=== PATIENT | male | born 1945 ===

== ENCOUNTER 2018-03-02 13:13 | Inpatient (IN) ==
[2018-03-02] MEDS ORDERED: fentaNYL Citrate Inj 250 MCG/5 ML Ampul ONE (17:19)
[2018-03-02] MEDS ORDERED: Gelatin 12 MM/7 MM Topical Foam I-ARTERIAL ONE (18:00)
[2018-03-02] MEDS ORDERED: ceFAZolin 1 GM Premix Inj 1 GM/50 ML FROZ.PIGGY IV.SIG ONE (18:38)
--- NOTE | 2018-03-02 18:49 | P.RAD ---
Post Procedure Progress Note - Pre Procedure Diagnosis (1) Lower GI bleed - Post Procedure Diagnosis (1) Lower GI bleed - Procedure Information Procedure Date: 03/02/18 Supervising Radiologist: Eladio Banks MD Estimated blood loss (mL): 3 Anesthesia: Local, Conscious Sedation - Plan of Activity Patient to Unit: PACU Patient Condition: Fair Additional Comments: Mesenteric angio completed. Subselective injections of the Celiac, SMA and MAGGIE. Celiac and MAGGIE are unremarkable. SMA demonstrated an abnormal vessel that appeared to be in the terminal ilium. Possible small AVM. Very small feeding vessel was embolized with Gelfoam and a 1mm coil. Cecum was evaluated in multiple projections. No active bleeding seen, No remaining AVM seen in this area. Full dictated report to follow See PACS Report for procedural detail/treatment.
[2018-03-02] MEDS ORDERED: Bisacodyl 10 MG Supp RECTAL PRN (19:36)
[2018-03-02] MEDS ORDERED: Magnesium Sulfate Inj 4 GM in Sodium Chlor 0.9% Inj 92 ML IV.SIG PRN (19:39)
[2018-03-02] MEDS ORDERED: Potassium Phosphate Inj 30 MMOL in Sodium Chlor 0.9% Inj 250 ML IV.SIG PRN (19:39)
[2018-03-02] MEDS ORDERED: Magnesium Sulfate Inj 2 GM in Sodium Chlor 0.9% Inj 96 ML IV.SIG PRN (19:39)
[2018-03-02] MEDS ORDERED: Potassium Chloride 25 MEQ Effervescent Tablet PO PRN (19:39)
[2018-03-02] MEDS ORDERED: Potassium Chlor 40 mEq Premix 40 MEQ/100 ML PIGGYBACK IV.SIG PRN ×2 (19:39)
[2018-03-02] MEDS ORDERED: Potassium Phosphate 500 MG Soluble Tablet PO PRN ×2 (19:39)
[2018-03-02] MEDS ORDERED: Dextrose 50% in Water 50 ML Vial IV.PUSH PRN (19:39)
[2018-03-02] MEDS ORDERED: Potassium Chlor 20 mEq Premix 20 MEQ/100 ML PIGGYBACK IV.SIG PRN ×2 (19:39)
[2018-03-02] MEDS ORDERED: Sodium Phosphate Inj 30 MMOL in Sodium Chlor 0.9% Inj 250 ML IV.SIG PRN (19:39)
[2018-03-02] MEDS ORDERED: Magnesium Oxide 400 MG Tablet PO PRN (19:39)
--- NOTE | 2018-03-02 19:40 | P.HPCC ---
History of Present Illness Service: Critical care medicine Primary Care Physician: UNKNOWN Chief Complaint: GI bleed History of Present Illness: This is a 72-year-old male. Admission 03/02/2018 past medical includes diabetes mellitus, hypertension, obstructive sleep apnea, hypothyroidism and pulmonary fibrosis. Pertinent history, GI bleed. Patient a colonoscopy 02/22 which revealed internal hemorrhoids and distal AVM that was cauterized. Patient had recurrent rectal bleeding in a colonoscopy 03/01 revealed acute clot. Patient was epi and clipped. Hemoglobin this a.m. at 03/02 L was 11.1. Patient was transferred to [facility] for embolization by interventional radiology. In IR, patient had patent celiac and MAGGIE. SMA revealed possible bleed at the terminal ileum. Gelfoam and 1 mm close provided. Hemoglobin is currently 8.4 patient is hemodynamically stable. Inpatient Certification: I certify that the inpatient services were ordered in accordance with Medicare regulations governing the order. This includes certification that hospital inpatient services are reasonable and necessary and in the case of services not specified as inpatient-only under 42 CFR 419.22(n), that they are appropriately provided as inpatient services in accordance to with the 2-midnight benchmark under 43 CFR 412.3(e) Estimated Total Length of Stay (Days): 5 Plans for Post Hospital Care: Other Review of Systems Constitutional: Denies anorexia, Denies body ache(s) Eyes: Denies blind spots, Denies blurry vision Ears, Nose, Mouth, and Throat: Reports abnormal hearing, Denies bleeding gums Cardiovascular: Denies chest pain, Denies shortness of breath with activity Respiratory: Reports shortness of breath with activity, Denies change in phlegm color, Denies cough, Denies shortness of breath, Denies wheezing Gastrointestinal: Reports bloating, Reports bright, red blood in stools, Denies abdominal pain, Denies vomiting blood Genitourinary: Denies scrotal swelling Musculoskeletal: Denies abnormal walking Skin/Breast: Denies acne, Denies bleeding lesions Neurologic: Reports abnormal hearing, Denies abnormal movements Psychiatric: Reports abnormal sleep pattern, Denies anxiety Endocrine: Denies cold intolerance Hematologic/Lymphatic: Denies easy bleeding Allergic/Immunologic: Denies GI upset with certain foods PMFSH - History History Provided By: Patient, Family Member - Medical History Medical History: Medical History (Last Updated 03/03/18 @ 00:45 by Vince Cardozo MD) Diabetes mellitus Essential hypertension Hypothyroidism Obstructive sleep apnea Pulmonary fibrosis - Surgical History Surgical History: Surgical History (Last Updated 03/03/18 @ 00:36 by Vince Cardozo MD) Status post colonoscopy - Family History Family History: Family History (Last Updated 03/03/18 @ 00:36 by Vince Cardozo MD) Other Family history unremarkable - Tobacco History Second Hand Smoke Exposure: Yes Tobacco Use In Past 30 Days: Yes Smoking Status: Current every day smoker Tobacco Type: Cigarettes - Alcohol History How Often Do You Have a Drink Containing Alcohol: Monthly or less - Substance Use History Substance History: No History of Abuse Medications and Allergies Active Medications: Active Medications Acetaminophen (Tylenol) 650 mg PO Q6H PRN PRN Reason: PAIN 1-10 AND/OR FEVER >101F Al Hydroxide/Mg Hydroxide (Milk Of Magnorion Liq) 30 ml PO Q12H PRN PRN Reason: Mild Constipation Albuterol (Albuterol Neb (Valeria)) 2.5 mg NEB Q2HR NEB PRN PRN Reason: SHORTNESS OF BREATH/WHEEZING Albuterol (Duoneb Neb (Prn)) 1 ampul NEB Q4HR NEB VALERIA Bisacodyl (Dulcolax Supp) 10 mg RECTAL DAILY PRN PRN Reason: SEVERE CONSITIPATION Chlorhexidine Gluconate (Chlorhexidine 2% Cloth) 3 pack TOPICAL DAILY@0400 VALERIA Stop: 03/08/18 03:59 Chlorhexidine Gluconate (Chlorhexidine 2% Cloth) 3 pack TOPICAL DAILY@0400 PRN PRN Reason: Extra cloth needed Stop: 03/08/18 03:59 Sodium Chloride (Ns Inj) 1,000 mls @ 84 mls/hr IV.CONT .[id number] VALERIA Magnesium Sulfate 4 gm/ Sodium (Chloride) 100 mls @ 50 mls/hr IV.SIG UNSCH PRN PRN Reason: For Magnesium 0.9 - 1.1 mg/dL Magnesium Sulfate 2 gm/ Sodium (Chloride) 100 mls @ 50 mls/hr IV.SIG UNSCH PRN PRN Reason: For Magnesium 1.2 - 1.6 mg/dL Potassium Chloride (Kcl 40 Meq Premix Inj) 40 meq in 100 mls @ 25 mls/hr IV.SIG Q2H PRN PRN Reason: For Potassium 2.8 - 3.2 mEq/L Potassium Chloride (Kcl 20 Meq Premix Inj) 20 meq in 100 mls @ 50 mls/hr IV.SIG Q2H PRN PRN Reason: For Potassium 3.3 - 3.5 mEq/L Potassium Chloride (Kcl 40 Meq Premix Inj) 40 meq in 100 mls @ 25 mls/hr IV.SIG UNSCH PRN PRN Reason: For Potassium 3.3 - 3.5 mEq/L Potassium Chloride (Kcl 20 Meq Premix Inj) 20 meq in 100 mls @ 50 mls/hr IV.SIG Q2H PRN PRN Reason: For Potassium 2.8 - 3.2 mEq/L Lactulose (Lactulose Liq) 30 ml PO DAILY PRN PRN Reason: SEVERE CONSITIPATION Pantoprazole Sodium (Protonix Inj) 40 mg IV.PUSH DAILY VALERIA Potassium Bicarb/Potassium Chloride (K-Lyte Cl Eff) 50 meq PO UNSCH PRN PRN Reason: For Potassium 3.3 - 3.5 mEq/L Potassium Phosphate (K-Phos Original) 2,000 mg PO Q4H PRN PRN Reason: Phosphorus Less Than 2.5 mg/dL Potassium Phosphate (K-Phos Original) 2,000 mg PO UNSCH PRN PRN Reason: SEE LABEL COMMENTS Senna/Docusate Sodium (Natasha-Colace) 1 tab PO BID VALERIA Sennosides (Senokot) 17.2 mg PO Q12H PRN PRN Reason: Moderate Constipation Sodium Chloride (Ns Flush) 2 ml IV.FLUSH BID VALERIA Sodium Chloride (Ns Flush) 2 ml IV.FLUSH PRN PRN PRN Reason: FLUSH AFTER USING IV ACCESS Allergies Allergy/AdvReac Type Severity Reaction Status Date / Time No Known Allergies Allergy Verified 03/02/18 17:21 Results - Labs CBC & Chem 7: 03/02/18 20:16 Exam Vital signs: Intake & Output 03/02/18 03/02/18 03/03/18 06:59 18:59 06:59 Intake Total 0 / 0 50 / 50 Balance 0 / 0 50 / 50 Weight 110.223 kg Intake: IV 50 / 50 Ancef 1 GM Premix Inj 1 gm In 50 / 50 50 ml @ 0 mls/hr IV.SIG .STK- MED ONE Rx#:[id number] Oral 0 / 0 Other: Weight On Admission 110 kg - Constitutional no acute distress - Routine HEENT Exam Head: Present: normocephalic, atraumatic Eye: Present: EOMI, PERRL, normal accommodation ENT: Present: mucous membranes moist - Routine Neck Exam Present: supple, full ROM. Absent: JVD - Routine Chest/Breast/Axilla Exam Chest wall: Absent: tenderness Breast: Absent: tenderness Axillae: Absent: lymphadenopathy - Routine Respiratory Exam Present: CTA bilaterally. Absent: accessory muscle use, rhonchi - Routine Cardiovascular Exam Present: RRR, S1, S2. Absent: murmur - Routine Abdominal Exam Present: soft, normoactive bowel sounds - Routine Extremities Exam Absent: cyanosis, clubbing, edema - Routine Skin Exam Present: intact - Routine Neurological Exam Present: alert, oriented X3 Septic Shock Reassessment Septic shock perfusion: reassessment completed Caprini VTE Risk Assessment Caprini VTE Risk Assessment: Moderate/High Risk (score >= 2) VTE Pharmacological Exception Reason: Hemorrhage Caprini Risk Assessment Model: Point Value = 1 Point Value = 2 Point Value = 3 Point Value = 5 Age 41-60 Minor surgery BMI > 25 kg/m2 Swollen legs Varicose veins or History of unexplained or recurrent spontaneous Oral contraceptives or hormone replacement Sepsis (< 1 month) Serious lung disease, including pneumonia (< 1 month) Abnormal pulmonary function Acute myocardial infarction Congestive heart failure (< 1 month) History of inflammatory bowel disease Medical patient at bed rest Age 61-74 Arthroscopic surgery Major open surgery (> 45 min) Laparoscopic surgery (> 45 min) Malignancy Confined to bed (> 72 hours) Immobilizing plaster cast Central venous access Age >= 75 History of VTE Family history of VTE Factor V Leiden Prothrombin [id number] Lupus anticoagulant Anticardiolipin antibodies Elevated serum homocysteine Heparin-induced thrombocytopenia Other congenital or acquired thrombophilia Stroke (< 1 month) Elective arthroplasty Hip, pelvis, or leg fracture Acute spinal cord injury (< 1 month) Prophylaxis Regimen: Total Risk Factor Score Risk Level Prophylaxis Regimen 0-1 Low Early ambulation 2 Moderate Order ONE of the following: *Sequential Compression Device (SCD) *Heparin 5000 units SQ BID 3-4 Higher Order ONE of the following medications: *Heparin 5000 units SQ TID *Enoxaparin/Lovenox 40 mg SQ daily (WT < 150 kg, CrCl > 30 mL/min) *Enoxaparin/Lovenox 30 mg SQ daily (WT < 150 kg, CrCl > 10-29 mL/min) *Enoxaparin/Lovenox 30 mg SQ BID (WT < 150 kg, CrCl > 30 mL/min) AND/OR *Sequential Compression Device (SCD) 5 or more Highest Order ONE of the following medications: *Heparin 5000 units SQ TID (Preferred with Epidurals) *Enoxaparin/Lovenox 40 mg SQ daily (WT < 150 kg, CrCl > 30 mL/min) *Enoxaparin/Lovenox 30 mg SQ daily (WT < 150 kg, CrCl > 10-29 mL/min) *Enoxaparin/Lovenox 30 mg SQ BID (WT < 150 kg, CrCl > 30 mL/min) AND *Sequential Compression Device (SCD) Assessment and Plan - Assessment and Plan Plan: Neuro/Psych: Acetaminophen 650 mg p.o. every 6 hours as needed fever past pain 1 through 10 CV: Essential hypertension Holding enalapril 20 mg twice daily and amlodipine 5 mg daily in light of hypotension. Holding triamterene/hydrochlorothiazide 75/51 tablet daily in light of hypotension. Currently on normal saline 84 cc an hour. Not requiring vasopressors Resp: Obstructive sleep apnea History of pulmonary fibrosis Nasal cannula to maintain saturations greater than equal to 90% Incentive spirometry while awake Albuterol/ipratropium aerosols every 4 hours with albuterol aerosols every 2 hours as needed dyspnea Follow-up on chest x-ray GI: Lower GI bleed -status post embolization/Gelfoam with 1 mm gelfoam to SMA terminal ileum Internal hemorrhoid IR findings as above. n.p.o. status. Dr. Vega is following Pantoprazole for GI prophylaxis Docusate serum/senna 1 tablet twice daily for bowel regimen. : Straight catheterization as needed Endo: Diabetes mellitus Hypothyroidism Sliding scale insulin with Accu-Cheks to maintain euglycemia. Holding Januvia 100 mg daily while n.p.o. Check TSH Continue levothyroxine 75 mcg daily Renal: Follow BMP Monitor urine output accurate I's and O's Heme: Acute blood loss anemia Hemoglobin currently 8.4. Downward trend noted hemoglobin was 11.1 on 03/02 at 800 hours Hemoglobins every 6 hours. Type and screen ID: Monitor for signs and symptomatology infection MSK: Elevated BMI Physical therapy evaluate and treat FEN: Access -Utilize peripheral IV. Central line if indicated Prophylaxis - -GI pantoprazole = = DVT SCD/pharmacological prophylaxis contraindicated with hemorrhage Level 3 admission Code Status: Full code Discussed Condition With: Patient. . Care plan discussed and all questions answered. H&P: Quality - VTE Deep Vein Thrombosis/Pulmonary Embolism Present on Admission: No
[2018-03-02 21:11] LABS: Hematocrit 24.5 % (39.0-51.0); Hemoglobin 8.4 gm/dL (13.0-17.0); Mean Corpuscular HGB Conc 34.3 % (32.0-36.0); Mean Corpuscular Hemoglobin 31.1 pg (27.0-34.0); Mean Corpuscular Volume 90.8 fL (80.0-100.0); Mean Platelet Volume 9.5 fL (7.0-11.0); Platelet Count 191 th/mm3 (150-450); Red Cell Distribution Width 13.4 % (11.6-17.2); White Blood Count 9.2 th/mm3 (4.0-11.0)
[2018-03-02] MEDS: Sod Chloride 0.9% Inj 1,000 ML IV.CONT SCH (21:13)
[2018-03-03] MEDS: Senna/Docusate Sodium 8.6/50 MG Tablet PO SCH ×3 (00:50→21:48)
[2018-03-03] MEDS: Insulin NovoLOG Aspart Correctional Sugar Inj SQ SCH ×4 (01:00→18:29)
[2018-03-03] MEDS ORDERED: Chlorhexidine Gluconate 2% 1 Pack (2 Cloths) TOPICAL PRN (04:00)
[2018-03-03 04:01] LABS: Baso % (Auto) 0.4 % (0.0-2.0); Eos % (Auto) 0.4 % (0.0-4.0); Hemoglobin 7.9 gm/dL (13.0-17.0); Lymph # (Auto) 1.3 th/mm3 (1.0-4.8); Lymph % (Auto) 11.7 % (9.0-44.0); Mean Corpuscular HGB Conc 34.2 % (32.0-36.0); Mean Corpuscular Hemoglobin 31.1 pg (27.0-34.0); Mean Platelet Volume 8.4 fL (7.0-11.0); Mono # (Auto) 0.8 th/mm3 (0.0-0.9); Mono % (Auto) 7.1 % (0.0-8.0); Neut # (Auto) 8.7 th/mm3 (1.8-7.7); Neut % (Auto) 80.4 % (16.0-70.0); Platelet Count 205 th/mm3 (150-450); Red Blood Count 2.53 mil/mm3 (4.50-5.90); Red Cell Distribution Width 13.7 % (11.6-17.2); White Blood Count 10.8 th/mm3 (4.0-11.0)
[2018-03-03 04:13] LABS: Activated Partial Thrombo Time 26.3 sec (23.4-31.7); Prothrombin Time 10.4 sec (9.8-11.6)
[2018-03-03 04:37] LABS: Albumin 2.7 g/dL (3.4-5.0); Anion Gap 7 meq/L (5-15); Aspartate Aminotransferase 22 U/L (15-37); Blood Urea Nitrogen 7 mg/dL (7-18); Calcium 7.7 mg/dL (8.5-10.1); Carbon Dioxide 28.5 meq/L (21.0-32.0); Chloride 106 meq/L (98-107); Glomerular Filtration Rate 78 mL/min (>89); Glucose,Random 147 mg/dL (74-106); Potassium 3.8 meq/L (3.5-5.1); Sodium 141 meq/L (136-145)
[2018-03-03 04:41] LABS: Alanine Aminotransferase 37 U/L (12-78); Alkaline Phosphatase 68 U/L (45-117); Phosphorus 2.8 mg/dL (2.5-4.9); Total Protein 6.3 g/dL (6.4-8.2)
[2018-03-03] MEDS: Chlorhexidine Gluconate 2% 1 Pack (2 Cloths) TOPICAL SCH (07:55)
--- NOTE | 2018-03-03 08:12 | P.PNCC ---
Subjective Subjective Remarks/Hospital Course: This is a 72-year-old male. Admission 03/02/2018 past medical includes diabetes mellitus, hypertension, obstructive sleep apnea, hypothyroidism and pulmonary fibrosis. Pertinent history, GI bleed. Patient a colonoscopy 02/22 which revealed internal hemorrhoids and distal AVM that was cauterized. Patient had recurrent rectal bleeding in a colonoscopy 03/01 revealed acute clot. Patient was epi and clipped. Hemoglobin this a.m. at 11 L was 11.1. Patient was transferred to [facility] for embolization by interventional radiology. In IR, patient had patent celiac and MAGGIE. SMA revealed possible bleed at the terminal ileum. Gelfoam and 1 mm close provided. Hemoglobin is currently 8.4 patient is hemodynamically stable. 03/03 Patient is awake and alert, s/p mesenteric angiogram with embolization SMA. Hgb 7.9 from 8.4. Objective Vital Signs / I&O: Vital Signs 03/02/18 18:59 03/02/18 19:14 03/02/18 19:29 Temperature 97.9 F 97.9 F 97.9 F Pulse Rate 88 88 89 Respiratory Rate 18 18 18 Blood Pressure 160/72 H 145/63 H 152/70 H Pulse Oximetry 94 L 95 100 03/02/18 19:59 03/02/18 20:00 03/02/18 20:29 Temperature 97.9 F 97.9 F 97.0 F L Pulse Rate 92 H 92 H 96 H Respiratory Rate 18 20 20 Blood Pressure 165/73 H 165/73 H 139/63 Pulse Oximetry 95 95 96 03/02/18 20:59 03/02/18 21:02 03/02/18 21:29 Temperature 97.9 F 97.0 F L Pulse Rate 96 H 93 H 98 H Respiratory Rate 20 16 21 Blood Pressure 161/70 H 134/63 Pulse Oximetry 100 99 98 03/02/18 22:00 03/02/18 22:29 03/02/18 23:00 Temperature 97.0 F L 97 F L 97.0 F L Pulse Rate 97 H 98 H 98 H Respiratory Rate 19 20 21 Blood Pressure 153/70 H 156/66 H 163/73 H Pulse Oximetry 100 98 97 03/02/18 23:29 03/03/18 00:00 03/03/18 00:29 Temperature 97.9 F 97.9 F Pulse Rate 99 H 100 H 104 H Respiratory Rate 18 20 25 H Blood Pressure 160/62 H 157/70 H 150/70 H Pulse Oximetry 97 99 100 03/03/18 01:00 03/03/18 01:29 03/03/18 02:00 Temperature 97.9 F 97.9 F 97.9 F Pulse Rate 100 H 97 H 98 H Respiratory Rate 21 16 11 L Blood Pressure 155/62 H 161/70 H 158/61 H Pulse Oximetry 99 99 99 03/03/18 03:00 03/03/18 04:00 03/03/18 05:00 Temperature 97.9 F 98.9 F 97.1 F L Pulse Rate 100 H 99 H 99 H Respiratory Rate 19 19 17 Blood Pressure 159/70 H 168/74 H 164/72 H Pulse Oximetry 100 100 100 03/03/18 06:00 03/03/18 07:59 Temperature 97 F L Pulse Rate 100 H 105 H Respiratory Rate 20 15 Blood Pressure 159/64 H Pulse Oximetry 100 94 L Intake & Output 03/02/18 03/03/18 03/03/18 18:59 06:59 18:59 Intake Total 0 / 0 50 / 50 Output Total 850 / 850 0 / 0 Balance 0 / 0 -800 / -800 0 / 0 Weight 110.223 kg 110 kg Intake: IV 50 / 50 Ancef 1 GM Premix Inj 1 gm In 50 / 50 50 ml @ 0 mls/hr IV.SIG .STK- MED ONE Rx#:[id number] Oral 0 / 0 0 / 0 Output: Urine 850 / 850 0 / 0 Stool 0 / 0 0 / 0 Urine/Stool Mix 0 / 0 0 / 0 Other: Date of Last Bowel Movement 03/02/18 # Bowel Movements 0 0 # Incontinent Bowel Movements 0 0 Weight On Admission 110 kg Result Diagrams: 03/03/18 12:04 03/03/18 03:32 Other Results: Laboratory Results - last 12 hr 03/02/18 03/02/18 03/03/18 16:10 20:16 00:54 WBC 9.2 RBC 2.70 L Hgb 8.4 L Hct 24.5 L MCV 90.8 MCH 31.1 MCHC 34.3 RDW 13.4 Plt Count 191 MPV 9.5 Neut % (Auto) Lymph % (Auto) [place] % (Auto) Eos % (Auto) Baso % (Auto) Neut # (Auto) Lymph # (Auto) [place] # (Auto) Eos # (Auto) Baso # (Auto) WBC Differential Differential Comment PT INR APTT Sodium Potassium Chloride Carbon Dioxide Anion Gap BUN Creatinine Estimated GFR POC Glucose 198 H Random Glucose Lactic Acid Calcium Phosphorus Magnesium Total Bilirubin AST ALT Alkaline Phosphatase Total Protein Albumin Nasal Screen MRSA (PCR) Not detected Blood Type Blood Type Recheck Antibody Screen 03/03/18 03/03/18 03/03/18 03:22 03:30 03:32 WBC 10.8 RBC 2.53 L Hgb 7.9 L Hct 23.0 L MCV 91.0 MCH 31.1 MCHC 34.2 RDW 13.7 Plt Count 205 MPV 8.4 Neut % (Auto) 80.4 H Lymph % (Auto) 11.7 [place] % (Auto) 7.1 Eos % (Auto) 0.4 Baso % (Auto) 0.4 Neut # (Auto) 8.7 H Lymph # (Auto) 1.3 [place] # (Auto) 0.8 Eos # (Auto) 0.0 Baso # (Auto) 0.0 WBC Differential . Differential Comment Auto diff final PT 10.4 INR 1.0 APTT 26.3 Sodium Potassium Chloride Carbon Dioxide Anion Gap BUN Creatinine Estimated GFR POC Glucose Random Glucose Lactic Acid Calcium Phosphorus Magnesium Total Bilirubin AST ALT Alkaline Phosphatase Total Protein Albumin Nasal Screen MRSA (PCR) Blood Type A Positive Blood Type Recheck Required Antibody Screen Negative 03/03/18 03/03/18 03/03/18 03:32 03:32 06:08 WBC RBC Hgb Hct MCV MCH MCHC RDW Plt Count MPV Neut % (Auto) Lymph % (Auto) [place] % (Auto) Eos % (Auto) Baso % (Auto) Neut # (Auto) Lymph # (Auto) [place] # (Auto) Eos # (Auto) Baso # (Auto) WBC Differential Differential Comment PT INR APTT Sodium 141 Potassium 3.8 Chloride 106 Carbon Dioxide 28.5 Anion Gap 7 BUN 7 Creatinine 0.95 Estimated GFR 78 L POC Glucose 182 H Random Glucose 147 H Lactic Acid 0.8 Calcium 7.7 L Phosphorus 2.8 Magnesium 2.0 Total Bilirubin 0.2 AST 22 ALT 37 Alkaline Phosphatase 68 Total Protein 6.3 L Albumin 2.7 L Nasal Screen MRSA (PCR) Blood Type Blood Type Recheck Antibody Screen Objective Remarks: GENERAL: Patient is 72 yo lying in bed in NAD SKIN: Warm and dry. HEAD: Normocephalic. EYES: No scleral icterus. No injection or drainage. NECK: Supple, trachea midline. No JVD or lymphadenopathy. CARDIOVASCULAR: Regular rate and rhythm without murmurs, gallops, or rubs. RESPIRATORY: Breath sounds equal bilaterally. No accessory muscle use. GASTROINTESTINAL: Abdomen soft, non-tender, nondistended. MUSCULOSKELETAL: No cyanosis, or edema. Neuro: Awake and alert Assessment and Plan - Assessment and Plan Plan: Neuro/Psych: Awake and alert Acetaminophen 650 mg p.o. every 6 hours as needed fever past pain 1 through 10 CV: Essential hypertension Monitor HR and BP keep MAP>65mmHg. Holding BP meds Currently on normal saline 84 cc an hour. Resp: Obstructive sleep apnea History of pulmonary fibrosis Continue with oxygen keep sats >92% Incentive spirometry while awake Albuterol/ipratropium aerosols every 4 hours with albuterol aerosols every 2 hours as needed dyspnea Check CXR GI: Lower GI bleed -status post embolization/Gelfoam with 1 mm gelfoam to SMA terminal ileum Internal hemorrhoid IR findings as above. NPO Dr. Vega is following Pantoprazole for GI prophylaxis Docusate serum/senna 1 tablet twice daily for bowel regimen. : Straight catheterization as needed Endo: Diabetes mellitus Hypothyroidism Sliding scale insulin with Accu-Cheks to maintain euglycemia. Holding Januvia 100 mg daily while n.p.o. Check TSH Continue levothyroxine 75 mcg daily Renal: Monitor renal function, electrolytes replacement per protocol. Heme: Acute blood loss anemia Monitor CBC ID: Monitor for signs of infection(Fever, WBC) MSK: Elevated BMI Physical therapy evaluate and treat FEN: Access -Utilize peripheral IV. Prophylaxis - -GI pantoprazole = = DVT SCD/pharmacological prophylaxis contraindicated with hemorrhage/bleed Will sign off and transfer care to [facility] 2
--- NOTE | 2018-03-03 08:45 | XR ---
EXAM DATE: 03/03/2018 8:37 AM EDT AGE/SEX: 72 years / Male INDICATIONS: shortness of breath. CLINICAL DATA: This is the patient's initial encounter. Patient reports that signs and symptoms have been present for 1 day and indicates a pain score of 0/10. MEDICAL/SURGICAL HISTORY: Diabetes mellitus type II. Hypertension. Hypothyroidism. Pulmonary fibrosis. None. COMPARISON: No prior exams available for comparison. FINDINGS: Single AP view of the chest. Patchy opacity of the lung bases. Central pulmonary vasculature prominen ce. Cardiac silhouette mildly prominent. Small left pleural effusion. No evidence of pneumothorax. CONCLUSION: 1. Pulmonary vascular congestion. 2. Mildly prominent cardiac silhouette. 3. Small left pleural effusion. Electronically signed by: Adrian Gilliland MD 03/03/2018 8:43 AM EDT
[2018-03-03] MEDS: Pantoprazole Inj 40 MG Vial IV.PUSH SCH (08:55)
[2018-03-03] MEDS: Sod Chloride 0.9% Inj 1,000 ML IV.CONT SCH (09:47)
--- NOTE | 2018-03-03 10:26 | P.CONGI ---
History of Present Illness Consult date: 03/03/18 Chief complaint: GI Bleed History of Present Illness: This is a 72-year-old male hard of hearing with pmh of diabetes mellitus, hypertension, obstructive sleep apnea, hypothyroidism and pulmonary fibrosis who was transferred from [place] on 03/02 for GI bleed described as significant BRBPR. Patient a colonoscopy 02/22 at [facility] which revealed internal hemorrhoids and distal AVM that was cauterized. Patient started bleeding on , subsequently had another colonoscopy 03/01 revealed acute clot s/p epi and clipped, but pt cont. to bleed so he was transferred to [facility] for embolization by interventional radiology. On admission, Hemoglobin 8.4, today is 7.9. Patient is s/p IR intervention, patient had patent celiac and MAGGIE. SMA revealed possible bleed at the terminal ileum. Gelfoam and 1 mm close provided. Patient is hemodynamically stable. Patient hasn't had any more bleeding since yesterday. Inquiring about diet. <Radha Callaway - Last Filed: 03/03/18 10:10> Review of Systems All other systems reviewed negative except as stated in HPI <Radha Callaway - Last Filed: 03/03/18 10:10> PMFSH - History History Provided By: Patient, Family Member - Medical History Medical History: Medical History (Last Reviewed 03/03/18 @ 08:23 by Amando Escobar) Diabetes mellitus Essential hypertension Hypothyroidism Obstructive sleep apnea Pulmonary fibrosis - Surgical History Surgical History: Surgical History (Last Reviewed 03/03/18 @ 08:23 by Amando Escobar) Status post colonoscopy - Family History Family History: Family History (Last Updated 03/03/18 @ 00:36 by Vince Cardozo MD) Other Family history unremarkable - Tobacco History Second Hand Smoke Exposure: Yes Tobacco Use In Past 30 Days: Yes Smoking Status: Current every day smoker Tobacco Type: Cigarettes - Alcohol History How Often Do You Have a Drink Containing Alcohol: Monthly or less - Substance Use History Substance History: No History of Abuse <Radha Callaway - Last Filed: 03/03/18 10:10> - Medical History Medical History: Medical History (Last Reviewed 03/03/18 @ 08:23 by Amando Escobar) Diabetes mellitus Essential hypertension Hypothyroidism Obstructive sleep apnea Pulmonary fibrosis - Surgical History Surgical History: Surgical History (Last Reviewed 03/03/18 @ 08:23 by Amando Escobar) Status post colonoscopy - Family History Family History: Family History (Last Updated 03/03/18 @ 00:36 by Vince Cardozo MD) Other Family history unremarkable <Loulou Méndez - Last Filed: 03/03/18 12:40> Medications and Allergies Active Medications: Active Medications Acetaminophen (Tylenol) 650 mg PO Q6H PRN PRN Reason: PAIN 1-10 AND/OR FEVER >101F Al Hydroxide/Mg Hydroxide (Milk Of Magnorion Liq) 30 ml PO Q12H PRN PRN Reason: Mild Constipation Albuterol (Albuterol Neb (Prn)) 2.5 mg NEB Q2HR NEB PRN PRN Reason: SHORTNESS OF BREATH/WHEEZING Albuterol (Duoneb Neb (Valeria)) 1 ampul NEB Q4HR NEB [facility]ERIA Last Admin: 03/03/18 07:56 Dose: Not Given Bisacodyl (Dulcolax Supp) 10 mg RECTAL DAILY PRN PRN Reason: SEVERE CONSITIPATION Chlorhexidine Gluconate (Chlorhexidine 2% Cloth) 3 pack TOPICAL DAILY@0400 VALERIA Stop: 03/08/18 03:59 Last Admin: 03/03/18 07:55 Dose: 3 pack Chlorhexidine Gluconate (Chlorhexidine 2% Cloth) 3 pack TOPICAL DAILY@0400 PRN PRN Reason: Extra cloth needed Stop: 03/08/18 03:59 Dextrose (D50w Vial) 50 ml IV.PUSH UNSCH PRN PRN Reason: PER HYPOGLYCEMIA PROTOCOL Glucagon (Glucagon Inj) 1 mg OTHER PRN PRN PRN Reason: for Hypoglycemia Protocol Magnesium Sulfate 4 gm/ Sodium (Chloride) 100 mls @ 50 mls/hr IV.SIG UNSCH PRN PRN Reason: For Magnesium 0.9 - 1.1 mg/dL Magnesium Sulfate 2 gm/ Sodium (Chloride) 100 mls @ 50 mls/hr IV.SIG UNSCH PRN PRN Reason: For Magnesium 1.2 - 1.6 mg/dL Potassium Chloride (Kcl 40 Meq Premix Inj) 40 meq in 100 mls @ 25 mls/hr IV.SIG Q2H PRN PRN Reason: For Potassium 2.8 - 3.2 mEq/L Potassium Chloride (Kcl 20 Meq Premix Inj) 20 meq in 100 mls @ 50 mls/hr IV.SIG Q2H PRN PRN Reason: For Potassium 3.3 - 3.5 mEq/L Potassium Chloride (Kcl 40 Meq Premix Inj) 40 meq in 100 mls @ 25 mls/hr IV.SIG UNSCH PRN PRN Reason: For Potassium 3.3 - 3.5 mEq/L Potassium Chloride (Kcl 20 Meq Premix Inj) 20 meq in 100 mls @ 50 mls/hr IV.SIG Q2H PRN PRN Reason: For Potassium 2.8 - 3.2 mEq/L Potassium Phosphate 30 mmol/ (Sodium Chloride) 260 mls @ 42 mls/hr IV.SIG UNSCH PRN PRN Reason: SEE LABEL COMMENTS Sodium Phosphate 30 mmol/ (Sodium Chloride) 260 mls @ 42 mls/hr IV.SIG UNSCH PRN PRN Reason: For Phosphorus < 2.5 mg/dL Insulin Aspart (Novolog Insulin Correctional Sugar Inj) 0 unit SQ Q6HR [facility]; Protocol Last Admin: 03/03/18 07:55 Dose: Not Given Lactulose (Lactulose Liq) 30 ml PO DAILY PRN PRN Reason: SEVERE CONSITIPATION Magnesium Oxide (Mag-Ox) 800 mg PO UNSCH PRN PRN Reason: For Magnesium 1.2 - 1.6 mg/dL Pantoprazole Sodium (Protonix Inj) 40 mg IV.PUSH DAILY [facility] Last Admin: 03/03/18 08:55 Dose: 40 mg Potassium Bicarb/Potassium Chloride (K-Lyte Cl Eff) 50 meq PO UNSCH PRN PRN Reason: For Potassium 3.3 - 3.5 mEq/L Potassium Phosphate (K-Phos Original) 2,000 mg PO Q4H PRN PRN Reason: Phosphorus Less Than 2.5 mg/dL Potassium Phosphate (K-Phos Original) 2,000 mg PO UNSCH PRN PRN Reason: SEE LABEL COMMENTS Senna/Docusate Sodium (Natasha-Colace) 1 tab PO BID [facility] Last Admin: 03/03/18 08:55 Dose: 1 tab Sennosides (Senokot) 17.2 mg PO Q12H PRN PRN Reason: Moderate Constipation Sodium Chloride (Ns Flush) 2 ml IV.FLUSH BID [facility] Last Admin: 03/03/18 08:56 Dose: 2 ml Sodium Chloride (Ns Flush) 2 ml IV.FLUSH PRN PRN PRN Reason: FLUSH AFTER USING IV ACCESS <Radha Callaway - Last Filed: 03/03/18 10:10> Active Medications: Active Medications Acetaminophen (Tylenol) 650 mg PO Q6H PRN PRN Reason: PAIN 1-10 AND/OR FEVER >101F Al Hydroxide/Mg Hydroxide (Milk Of Magnorion Liq) 30 ml PO Q12H PRN PRN Reason: Mild Constipation Albuterol (Albuterol Neb (Prn)) 2.5 mg NEB Q2HR NEB PRN PRN Reason: SHORTNESS OF BREATH/WHEEZING Albuterol (Duoneb Neb (Valeria)) 1 ampul NEB Q4HR NEB VALERIA Last Admin: 03/03/18 10:39 Dose: 1 ampul Bisacodyl (Dulcolax Supp) 10 mg RECTAL DAILY PRN PRN Reason: SEVERE CONSITIPATION Chlorhexidine Gluconate (Chlorhexidine 2% Cloth) 3 pack TOPICAL DAILY@0400 VALERIA Stop: 03/08/18 03:59 Last Admin: 03/03/18 07:55 Dose: 3 pack Chlorhexidine Gluconate (Chlorhexidine 2% Cloth) 3 pack TOPICAL DAILY@0400 PRN PRN Reason: Extra cloth needed Stop: 03/08/18 03:59 Dextrose (D50w Vial) 50 ml IV.PUSH UNSCH PRN PRN Reason: PER HYPOGLYCEMIA PROTOCOL Glucagon (Glucagon Inj) 1 mg OTHER PRN PRN PRN Reason: for Hypoglycemia Protocol Magnesium Sulfate 4 gm/ Sodium (Chloride) 100 mls @ 50 mls/hr IV.SIG UNSCH PRN PRN Reason: For Magnesium 0.9 - 1.1 mg/dL Magnesium Sulfate 2 gm/ Sodium (Chloride) 100 mls @ 50 mls/hr IV.SIG UNSCH PRN PRN Reason: For Magnesium 1.2 - 1.6 mg/dL Potassium Chloride (Kcl 40 Meq Premix Inj) 40 meq in 100 mls @ 25 mls/hr IV.SIG Q2H PRN PRN Reason: For Potassium 2.8 - 3.2 mEq/L Potassium Chloride (Kcl 20 Meq Premix Inj) 20 meq in 100 mls @ 50 mls/hr IV.SIG Q2H PRN PRN Reason: For Potassium 3.3 - 3.5 mEq/L Potassium Chloride (Kcl 40 Meq Premix Inj) 40 meq in 100 mls @ 25 mls/hr IV.SIG UNSCH PRN PRN Reason: For Potassium 3.3 - 3.5 mEq/L Potassium Chloride (Kcl 20 Meq Premix Inj) 20 meq in 100 mls @ 50 mls/hr IV.SIG Q2H PRN PRN Reason: For Potassium 2.8 - 3.2 mEq/L Potassium Phosphate 30 mmol/ (Sodium Chloride) 260 mls @ 42 mls/hr IV.SIG UNSCH PRN PRN Reason: SEE LABEL COMMENTS Sodium Phosphate 30 mmol/ (Sodium Chloride) 260 mls @ 42 mls/hr IV.SIG UNSCH PRN PRN Reason: For Phosphorus < 2.5 mg/dL Insulin Aspart (Novolog Insulin Correctional Sugar Inj) 0 unit SQ Q6HR [facility]; Protocol Last Admin: 03/03/18 07:55 Dose: Not Given Lactulose (Lactulose Liq) 30 ml PO DAILY PRN PRN Reason: SEVERE CONSITIPATION Magnesium Oxide (Mag-Ox) 800 mg PO UNSCH PRN PRN Reason: For Magnesium 1.2 - 1.6 mg/dL Pantoprazole Sodium (Protonix Inj) 40 mg IV.PUSH DAILY [facility] Last Admin: 03/03/18 08:55 Dose: 40 mg Potassium Bicarb/Potassium Chloride (K-Lyte Cl Eff) 50 meq PO UNSCH PRN PRN Reason: For Potassium 3.3 - 3.5 mEq/L Potassium Phosphate (K-Phos Original) 2,000 mg PO Q4H PRN PRN Reason: Phosphorus Less Than 2.5 mg/dL Potassium Phosphate (K-Phos Original) 2,000 mg PO UNSCH PRN PRN Reason: SEE LABEL COMMENTS Senna/Docusate Sodium (Natasha-Colace) 1 tab PO BID [facility] Last Admin: 03/03/18 08:55 Dose: 1 tab Sennosides (Senokot) 17.2 mg PO Q12H PRN PRN Reason: Moderate Constipation Sodium Chloride (Ns Flush) 2 ml IV.FLUSH BID [facility] Last Admin: 03/03/18 08:56 Dose: 2 ml Sodium Chloride (Ns Flush) 2 ml IV.FLUSH PRN PRN PRN Reason: FLUSH AFTER USING IV ACCESS <Loulou Méndez - Last Filed: 03/03/18 12:40> Allergies Allergy/AdvReac Type Severity Reaction Status Date / Time No Known Allergies Allergy Verified 03/02/18 17:21 Exam Vital signs: Vital Signs 03/02/18 18:59 03/02/18 19:14 03/02/18 19:29 Temperature 97.9 F 97.9 F 97.9 F Pulse Rate 88 88 89 Respiratory Rate 18 18 18 Blood Pressure 160/72 H 145/63 H 152/70 H Pulse Oximetry 94 L 95 100 03/02/18 19:59 03/02/18 20:00 03/02/18 20:29 Temperature 97.9 F 97.9 F 97.0 F L Pulse Rate 92 H 92 H 96 H Respiratory Rate 18 20 20 Blood Pressure 165/73 H 165/73 H 139/63 Pulse Oximetry 95 95 96 03/02/18 20:59 03/02/18 21:02 03/02/18 21:29 Temperature 97.9 F 97.0 F L Pulse Rate 96 H 93 H 98 H Respiratory Rate 20 16 21 Blood Pressure 161/70 H 134/63 Pulse Oximetry 100 99 98 03/02/18 22:00 03/02/18 22:29 03/02/18 23:00 Temperature 97.0 F L 97 F L 97.0 F L Pulse Rate 97 H 98 H 98 H Respiratory Rate 19 20 21 Blood Pressure 153/70 H 156/66 H 163/73 H Pulse Oximetry 100 98 97 03/02/18 23:29 18 00:00 03/03/18 00:29 Temperature 97.9 F 97.9 F Pulse Rate 99 H 100 H 104 H Respiratory Rate 18 20 25 H Blood Pressure 160/62 H 157/70 H 150/70 H Pulse Oximetry 97 99 100 03/03/18 01:00 03/03/18 01:29 03/03/18 02:00 Temperature 97.9 F 97.9 F 97.9 F Pulse Rate 100 H 97 H 98 H Respiratory Rate 21 16 11 L Blood Pressure 155/62 H 161/70 H 158/61 H Pulse Oximetry 99 99 99 03/03/18 03:00 03/03/18 04:00 03/03/18 05:00 Temperature 97.9 F 98.9 F 97.1 F L Pulse Rate 100 H 99 H 99 H Respiratory Rate 19 19 17 Blood Pressure 159/70 H 168/74 H 164/72 H Pulse Oximetry 100 100 100 03/03/18 06:00 03/03/18 07:00 03/03/18 07:59 Temperature 97 F L 97.1 F L Pulse Rate 100 H 100 H 105 H Respiratory Rate 20 24 15 Blood Pressure 159/64 H 165/75 H Pulse Oximetry 100 99 94 L Intake & Output 03/02/18 03/03/18 03/03/18 18:59 06:59 18:59 Intake Total 0 / 0 50 / 50 1000 / 1000 Output Total 850 / 850 0 / 0 Balance 0 / 0 -800 / -800 1000 / 1000 Weight 110.223 kg 110 kg Intake: IV 50 / 50 1000 / 1000 NS Inj 1,000 ML @ 84 mls/hr IV. 1000 / 1000 CONT .[id number] [facility]ERIA Rx#:[id number] Ancef 1 GM Premix Inj 1 gm In 50 / 50 50 ml @ 0 mls/hr IV.SIG .STK- MED ONE Rx#:[id number] Oral 0 / 0 0 / 0 Output: Urine 850 / 850 0 / 0 Stool 0 / 0 0 / 0 Urine/Stool Mix 0 / 0 0 / 0 Other: Date of Last Bowel Movement 03/02/18 # Bowel Movements 0 0 # Incontinent Bowel Movements 0 0 Weight On Admission 110 kg - Constitutional no acute distress - Routine HEENT Exam Head: Present: normocephalic - Routine Respiratory Exam Present: CTA bilaterally - Routine Cardiovascular Exam Present: RRR - Routine Abdominal Exam Present: soft, normoactive bowel sounds. Absent: tenderness, distended, rebound - Routine Skin Exam Present: intact, dry - Routine Neurological Exam Present: alert, oriented X3 <Radha Callaway - Last Filed: 03/03/18 10:10> Vital signs: Vital Signs 03/02/18 18:59 03/02/18 19:14 03/02/18 19:29 Temperature 97.9 F 97.9 F 97.9 F Pulse Rate 88 88 89 Respiratory Rate 18 18 18 Blood Pressure 160/72 H 145/63 H 152/70 H Pulse Oximetry 94 L 95 100 03/02/18 19:59 03/02/18 20:00 03/02/18 20:29 Temperature 97.9 F 97.9 F 97.0 F L Pulse Rate 92 H 92 H 96 H Respiratory Rate 18 20 20 Blood Pressure 165/73 H 165/73 H 139/63 Pulse Oximetry 95 95 96 03/02/18 20:59 03/02/18 21:02 03/02/18 21:29 Temperature 97.9 F 97.0 F L Pulse Rate 96 H 93 H 98 H Respiratory Rate 20 16 21 Blood Pressure 161/70 H 134/63 Pulse Oximetry 100 99 98 03/02/18 22:00 03/02/18 22:29 03/02/18 23:00 Temperature 97.0 F L 97 F L 97.0 F L Pulse Rate 97 H 98 H 98 H Respiratory Rate 19 20 21 Blood Pressure 153/70 H 156/66 H 163/73 H Pulse Oximetry 100 98 97 03/02/18 23:29 03/03/18 00:00 03/03/18 00:29 Temperature 97.9 F 97.9 F Pulse Rate 99 H 100 H 104 H Respiratory Rate 18 20 25 H Blood Pressure 160/62 H 157/70 H 150/70 H Pulse Oximetry 97 99 100 03/03/18 01:00 03/03/18 01:29 03/03/18 02:00 Temperature 97.9 F 97.9 F 97.9 F Pulse Rate 100 H 97 H 98 H Respiratory Rate 21 16 11 L Blood Pressure 155/62 H 161/70 H 158/61 H Pulse Oximetry 99 99 99 03/03/18 03:00 03/03/18 04:00 03/03/18 05:00 Temperature 97.9 F 98.9 F 97.1 F L Pulse Rate 100 H 99 H 99 H Respiratory Rate 19 19 17 Blood Pressure 159/70 H 168/74 H 164/72 H Pulse Oximetry 100 100 100 03/03/18 06:00 03/03/18 07:00 03/03/18 07:59 Temperature 97 F L 97.1 F L Pulse Rate 100 H 100 H 105 H Respiratory Rate 20 24 15 Blood Pressure 159/64 H 165/75 H Pulse Oximetry 100 99 94 L 03/03/18 10:38 03/03/18 10:41 Temperature Pulse Rate 87 Respiratory Rate 14 Blood Pressure Pulse Oximetry 97 Intake & Output 03/02/18 03/03/18 03/03/18 18:59 06:59 18:59 Intake Total 0 / 0 50 / 50 1000 / 1000 Output Total 850 / 850 0 / 0 Balance 0 / 0 -800 / -800 1000 / 1000 Weight 110.223 kg 110 kg Intake: IV 50 / 50 1000 / 1000 NS Inj 1,000 ML @ 84 mls/hr IV. 1000 / 1000 CONT .[id number] [facility] Rx#:[id number] Ancef 1 GM Premix Inj 1 gm In 50 / 50 50 ml @ 0 mls/hr IV.SIG .STK- MED ONE Rx#:[id number] Oral 0 / 0 0 / 0 Output: Urine 850 / 850 0 / 0 Stool 0 / 0 0 / 0 Urine/Stool Mix 0 / 0 0 / 0 Other: Date of Last Bowel Movement 03/02/18 # Bowel Movements 0 0 # Incontinent Bowel Movements 0 0 Weight On Admission 110 kg <Loulou Méndez - Last Filed: 03/03/18 12:40> Results - Labs CBC & Chem 7: 03/03/18 03:30 03/03/18 03:32 Labs: Laboratory Results - last 24 hr 03/02/18 03/02/18 03/03/18 16:10 20:16 00:54 WBC 9.2 RBC 2.70 L Hgb 8.4 L Hct 24.5 L MCV 90.8 MCH 31.1 MCHC 34.3 RDW 13.4 Plt Count 191 MPV 9.5 Neut % (Auto) Lymph % (Auto) Mckinley % (Auto) Eos % (Auto) Baso % (Auto) Neut # (Auto) Lymph # (Auto) Mckinley # (Auto) Eos # (Auto) Baso # (Auto) WBC Differential Differential Comment PT INR APTT Sodium Potassium Chloride Carbon Dioxide Anion Gap BUN Creatinine Estimated GFR POC Glucose 198 H Random Glucose Lactic Acid Calcium Phosphorus Magnesium Total Bilirubin AST ALT Alkaline Phosphatase Total Protein Albumin Nasal Screen MRSA (PCR) Not detected Blood Type Blood Type Recheck Antibody Screen 03/03/18 03/03/18 03/03/18 03:22 03:30 03:32 WBC 10.8 RBC 2.53 L Hgb 7.9 L Hct 23.0 L MCV 91.0 MCH 31.1 MCHC 34.2 RDW 13.7 Plt Count 205 MPV 8.4 Neut % (Auto) 80.4 H Lymph % (Auto) 11.7 Mckinley % (Auto) 7.1 Eos % (Auto) 0.4 Baso % (Auto) 0.4 Neut # (Auto) 8.7 H Lymph # (Auto) 1.3 Mckinley # (Auto) 0.8 Eos # (Auto) 0.0 Baso # (Auto) 0.0 WBC Differential . Differential Comment Auto diff final PT 10.4 INR 1.0 APTT 26.3 Sodium Potassium Chloride Carbon Dioxide Anion Gap BUN Creatinine Estimated GFR POC Glucose Random Glucose Lactic Acid Calcium Phosphorus Magnesium Total Bilirubin AST ALT Alkaline Phosphatase Total Protein Albumin Nasal Screen MRSA (PCR) Blood Type A Positive Blood Type Recheck Required Antibody Screen Negative 03/03/18 03/03/18 03/03/18 03:32 03:32 06:08 WBC RBC Hgb Hct MCV MCH MCHC RDW Plt Count MPV Neut % (Auto) Lymph % (Auto) Mckinley % (Auto) Eos % (Auto) Baso % (Auto) Neut # (Auto) Lymph # (Auto) Mckinley # (Auto) Eos # (Auto) Baso # (Auto) WBC Differential Differential Comment PT INR APTT Sodium 141 Potassium 3.8 Chloride 106 Carbon Dioxide 28.5 Anion Gap 7 BUN 7 Creatinine 0.95 Estimated GFR 78 L POC Glucose 182 H Random Glucose 147 H Lactic Acid 0.8 Calcium 7.7 L Phosphorus 2.8 Magnesium 2.0 Total Bilirubin 0.2 AST 22 ALT 37 Alkaline Phosphatase 68 Total Protein 6.3 L Albumin 2.7 L Nasal Screen MRSA (PCR) Blood Type Blood Type Recheck Antibody Screen - Imaging Impressions Chest X-Ray 03/03/18 08:08 CONCLUSION: 1. Pulmonary vascular congestion. 2. Mildly prominent cardiac silhouette. 3. Small left pleural effusion. <Radha Callaway - Last Filed: 03/03/18 10:10> - Labs CBC & Chem 7: 03/03/18 12:04 03/03/18 03:32 Labs: Laboratory Results - last 24 hr 03/02/18 03/02/18 03/03/18 16:10 20:16 00:54 WBC 9.2 RBC 2.70 L Hgb 8.4 L Hct 24.5 L MCV 90.8 MCH 31.1 MCHC 34.3 RDW 13.4 Plt Count 191 MPV 9.5 Neut % (Auto) Lymph % (Auto) Mckinley % (Auto) Eos % (Auto) Baso % (Auto) Neut # (Auto) Lymph # (Auto) Mckinley # (Auto) Eos # (Auto) Baso # (Auto) WBC Differential Differential Comment PT INR APTT Sodium Potassium Chloride Carbon Dioxide Anion Gap BUN Creatinine Estimated GFR POC Glucose 198 H Random Glucose Lactic Acid Calcium Phosphorus Magnesium Total Bilirubin AST ALT Alkaline Phosphatase Total Protein Albumin Nasal Screen MRSA (PCR) Not detected Blood Type Blood Type Recheck Antibody Screen 03/03/18 03/03/18 03/03/18 03:22 03:30 03:32 WBC 10.8 RBC 2.53 L Hgb 7.9 L Hct 23.0 L MCV 91.0 MCH 31.1 MCHC 34.2 RDW 13.7 Plt Count 205 MPV 8.4 Neut % (Auto) 80.4 H Lymph % (Auto) 11.7 Mckinley % (Auto) 7.1 Eos % (Auto) 0.4 Baso % (Auto) 0.4 Neut # (Auto) 8.7 H Lymph # (Auto) 1.3 Mckinley # (Auto) 0.8 Eos # (Auto) 0.0 Baso # (Auto) 0.0 WBC Differential . Differential Comment Auto diff final PT 10.4 INR 1.0 APTT 26.3 Sodium Potassium Chloride Carbon Dioxide Anion Gap BUN Creatinine Estimated GFR POC Glucose Random Glucose Lactic Acid Calcium Phosphorus Magnesium Total Bilirubin AST ALT Alkaline Phosphatase Total Protein Albumin Nasal Screen MRSA (PCR) Blood Type A Positive Blood Type Recheck Required Antibody Screen Negative 03/03/18 03/03/18 03/03/18 03:32 03:32 06:08 WBC RBC Hgb Hct MCV MCH MCHC RDW Plt Count MPV Neut % (Auto) Lymph % (Auto) Mckinley % (Auto) Eos % (Auto) Baso % (Auto) Neut # (Auto) Lymph # (Auto) Mckinley # (Auto) Eos # (Auto) Baso # (Auto) WBC Differential Differential Comment PT INR APTT Sodium 141 Potassium 3.8 Chloride 106 Carbon Dioxide 28.5 Anion Gap 7 BUN 7 Creatinine 0.95 Estimated GFR 78 L POC Glucose 182 H Random Glucose 147 H Lactic Acid 0.8 Calcium 7.7 L Phosphorus 2.8 Magnesium 2.0 Total Bilirubin 0.2 AST 22 ALT 37 Alkaline Phosphatase 68 Total Protein 6.3 L Albumin 2.7 L Nasal Screen MRSA (PCR) Blood Type Blood Type Recheck Antibody Screen 03/03/18 03/03/18 11:52 12:04 WBC RBC Hgb 8.2 L Hct 24.3 L MCV MCH MCHC RDW Plt Count MPV Neut % (Auto) Lymph % (Auto) Mckinley % (Auto) Eos % (Auto) Baso % (Auto) Neut # (Auto) Lymph # (Auto) Mckinley # (Auto) Eos # (Auto) Baso # (Auto) WBC Differential Differential Comment PT INR APTT Sodium Potassium Chloride Carbon Dioxide Anion Gap BUN Creatinine Estimated GFR POC Glucose 221 H Random Glucose Lactic Acid Calcium Phosphorus Magnesium Total Bilirubin AST ALT Alkaline Phosphatase Total Protein Albumin Nasal Screen MRSA (PCR) Blood Type Blood Type Recheck Antibody Screen - Imaging Impressions Chest X-Ray 03/03/18 08:08 CONCLUSION: 1. Pulmonary vascular congestion. 2. Mildly prominent cardiac silhouette. 3. Small left pleural effusion. <Loulou Méndez - Last Filed: 03/03/18 12:40> Assessment and Plan - Plan - GI bleed- No more bleeding, hgb seems to be stable. Pt was transferred from [place] on 03/02 for GI bleed described as significant BRBPR. Patient a colonoscopy 02/22 at [facility] which revealed internal hemorrhoids and distal AVM that was cauterized. Patient started bleeding on 02/28, subsequently had another colonoscopy 03/01 revealed acute clot s/p epi and clipped, but pt cont. to bleed so he was transferred to [facility] for embolization by interventional radiology. On admission, Hemoglobin 8.4, today is 7.9. Patient is s/p IR intervention 03/02, patient had patent celiac and MAGGIE. SMA revealed possible bleed at the terminal ileum. Gelfoam and 1 mm close provided. Patient is hemodynamically stable. Inquiring about diet. - pmh of diabetes mellitus, hypertension, obstructive sleep apnea, hypothyroidism and pulmonary fibrosis who was Plan: - Full liquid - Monitor hh - Transfuse as needed - Notify GI for active bleed - Cont. Protonix - Supportive care - Pt seen and examined by Dr. Méndez and myself and this note is written on her behalf. <Radha Callaway - Last Filed: 03/03/18 10:10> - Attending Attestation seen, examined agree with above if recurrent bleeding consult surgery if stable may dc in 1-2 days <Loulou Méndez - Last Filed: 03/03/18 12:40>
[2018-03-03 12:21] LABS: Hematocrit 24.3 % (39.0-51.0); Hemoglobin 8.2 gm/dL (13.0-17.0)
[2018-03-03] MEDS: Acetaminophen 325 MG Tablet PO PRN (15:29)
--- NOTE | 2018-03-04 00:50 | CT ---
EXAM DATE: 03/04/2018 12:39 AM EDT AGE/SEX: 72 years / Male INDICATIONS: Right side abdominal pain post embolization. CLINICAL DATA: This is the patient's initial encounter. Patient reports that signs and symptoms have been present for 1 day and indicates a pain score of 10/10. MEDICAL/SURGICAL HISTORY: Gastrointestinal bleed. Diabetes. Hypertension. Pulmonary fibrosis . None. ORAL CONTRAST: Prescribed oral contrast ingested. RADIATION DOSE: 20.59 CTDI (mGy) COMPARISON: [facility], ANGIOGRAM, MESENTERIC SUPERIOR, 03/02/2018. . TECHNIQUE: Multiple contiguous axial images were obtained through the abdomen and pelvis following b olus infusion of 75 ml Omnipaque 350 (iohexol) nonionic water-soluble contrast as a single exam dos e. Prescribed oral contrast ingested. Using automated exposure control and adjustment of the mA and/ or kV according to patient size, radiation dose was kept as low as reasonably achievable to obtain op timal diagnostic quality images. DICOM format image data is available electronically for review and comparison. FINDINGS: Lower Lungs: Emphysema and prominent interstitial disease in the lung bases. Liver: Diffuse mild decrease in hepatic attenuation, likely steatosis without evidence of focal mass or biliary ductal dilatation. Spleen: Homogeneous density without enlargement. Pancreas: Unremarkable without mass or calcification. Kidneys: Small cyst arising in the lateral upper to mid pole cortex of the right kidney. Miniscule m edial upper pole cyst on the left. No evidence of stone or hydronephrosis. Adrenal Glands: Unremarkable. Aorta: The aorta and proximal iliac vessels are grossly unremarkable without aneurysmal dilation. Bowel/Mesentery: A vascular microcoil is noted in the right lower quadrant mesentery. Adjacent to th e coil, a short loop of ileum is notable for mild concentric wall thickening. The bowel is elsewhere focally unremarkable. There is no abnormal dilatation. No extraluminal gas or fluid is identified. Abdominal Wall: Intact. Retroperitoneum: No evidence of adenopathy in the retrocrural, para-aortic, or deep pelvic regions. Bladder: Contours are smooth. Reproductive Organs: No abnormal masses or calcifications seen. Inguinal: The inguinal region is unremarkable without evidence of adenopathy. Bony Structures: Unremarkable. CONCLUSION: Short segment of ileal small bowel notable for mild concentric wall thickening which may reflect a fo maye ischemic segment following recent embolization for GI bleeding. Close clinical follow-up recomm ended. Electronically signed by: Eamon Ken MD 03/04/2018 12:48 AM EDT
[2018-03-04] MEDS: Acetaminophen 325 MG Tablet PO PRN ×3 (01:55→20:57)
[2018-03-04] MEDS: Insulin NovoLOG Aspart Correctional Sugar Inj SQ SCH ×4 (01:56→22:33)
[2018-03-04] MEDS: Chlorhexidine Gluconate 2% 1 Pack (2 Cloths) TOPICAL SCH (04:42)
[2018-03-04 05:19] LABS: Baso % (Auto) 0.2 % (0.0-2.0); Eos # (Auto) 0.1 th/mm3 (0.0-0.4); Eos % (Auto) 0.4 % (0.0-4.0); Hematocrit 22.3 % (39.0-51.0); Hemoglobin 7.7 gm/dL (13.0-17.0); Lymph # (Auto) 1.6 th/mm3 (1.0-4.8); Mean Corpuscular HGB Conc 34.4 % (32.0-36.0); Mean Corpuscular Hemoglobin 31.5 pg (27.0-34.0); Mean Corpuscular Volume 91.5 fL (80.0-100.0); Mean Platelet Volume 8.8 fL (7.0-11.0); Mono # (Auto) 1.4 th/mm3 (0.0-0.9); Mono % (Auto) 9.6 % (0.0-8.0); Neut # (Auto) 11.6 th/mm3 (1.8-7.7); Neut % (Auto) 78.8 % (16.0-70.0); Platelet Count 223 th/mm3 (150-450); Red Blood Count 2.44 mil/mm3 (4.50-5.90); Red Cell Distribution Width 13.6 % (11.6-17.2); White Blood Count 14.7 th/mm3 (4.0-11.0)
[2018-03-04 05:43] LABS: Albumin 2.9 g/dL (3.4-5.0); Anion Gap 8 meq/L (5-15); Aspartate Aminotransferase 17 U/L (15-37); Blood Urea Nitrogen 7 mg/dL (7-18); Calcium 8.3 mg/dL (8.5-10.1); Carbon Dioxide 29.1 meq/L (21.0-32.0); Chloride 99 meq/L (98-107); Glomerular Filtration Rate 65 mL/min (>89); Glucose,Random 144 mg/dL (74-106); Magnesium 2.1 mg/dL (1.5-2.5); Potassium 3.1 meq/L (3.5-5.1); Sodium 136 meq/L (136-145)
[2018-03-04 05:45] LABS: Alanine Aminotransferase 33 U/L (12-78)
[2018-03-04 05:48] LABS: Alkaline Phosphatase 74 U/L (45-117); Phosphorus 2.7 mg/dL (2.5-4.9)
[2018-03-04] MEDS: Pantoprazole Inj 40 MG Vial IV.PUSH SCH (09:42)
[2018-03-04] MEDS: Senna/Docusate Sodium 8.6/50 MG Tablet PO SCH ×2 (09:42→20:56)
--- NOTE | 2018-03-04 09:52 | P.PN ---
Subjective Interval history: Follow-up GI bleed March 04, 2018-patient seen and examined, still complains of abdominal pain. NO BM x 3 days. No report of GI bleed. by the bedside Physical Exam Vital signs: Vital Signs 03/03/18 12:00 03/03/18 15:35 03/03/18 15:49 Temperature 98.8 F 98.7 F Pulse Rate 103 H 103 H 101 H Respiratory Rate 22 16 22 Blood Pressure 137/60 Pulse Oximetry 99 97 03/03/18 17:00 03/03/18 19:00 03/03/18 20:00 Temperature 98.9 F 98.9 F Pulse Rate 104 H 102 H 114 H Respiratory Rate 18 18 Blood Pressure 143/65 H 131/60 155/67 H Pulse Oximetry 98 98 03/03/18 20:16 03/03/18 21:00 03/03/18 22:00 Temperature 98.9 F 98.7 F Pulse Rate 104 H 116 H 106 H Respiratory Rate 22 16 18 Blood Pressure 158/68 H 146/63 H Pulse Oximetry 97 98 98 03/03/18 23:00 03/04/18 00:00 03/04/18 04:00 Temperature 98.7 F 98.7 F 98.8 F Pulse Rate 109 H 106 H 97 H Respiratory Rate 17 18 18 Blood Pressure 139/59 L 139/65 139/60 Pulse Oximetry 98 98 98 03/04/18 04:43 Temperature Pulse Rate Respiratory Rate 18 Blood Pressure Pulse Oximetry Intake & Output 03/03/18 03/04/18 03/04/18 19:59 06:59 18:59 Intake Total Output Total Balance Weight Intake: IV NS Inj 1,000 ML @ 84 mls/hr IV. CONT .[id number] [facility] Rx#:[id number] Oral Output: Urine Stool Urine/Stool Mix Other: Date of Last Bowel Movement # Bowel Movements # Incontinent Bowel Movements Narrative: GENERAL: NAD SKIN: Warm and dry. HEAD: Normocephalic. EYES: No scleral icterus. No injection or drainage. NECK: Supple, trachea midline. No JVD or lymphadenopathy. CARDIOVASCULAR: Regular rate and rhythm without murmurs, gallops, or rubs. RESPIRATORY: Breath sounds equal bilaterally. No accessory muscle use. GASTROINTESTINAL: Abdomen soft, + mildly tender lower abdominal, nondistended. MUSCULOSKELETAL: No cyanosis, or edema. BACK: Nontender without obvious deformity. No CVA tenderness. Results - Labs CBC & Chem 7: 03/04/18 04:01 03/04/18 04:01 Laboratory Results - last 24 hr 03/03/18 03/03/18 03/03/18 11:52 12:04 18:00 WBC RBC Hgb 8.2 L Hct 24.3 L MCV MCH MCHC RDW Plt Count MPV Neut % (Auto) Lymph % (Auto) [place]ulloch % (Auto) Eos % (Auto) Baso % (Auto) Neut # (Auto) Lymph # (Auto) [place] # (Auto) Eos # (Auto) Baso # (Auto) WBC Differential Differential Comment Sodium Potassium Chloride Carbon Dioxide Anion Gap BUN Creatinine Estimated GFR POC Glucose 221 H 186 H Random Glucose Calcium Phosphorus Magnesium Total Bilirubin AST ALT Alkaline Phosphatase Total Protein Albumin 03/04/18 03/04/18 03/04/18 01:39 EST 04:01 04:01 WBC 14.7 H RBC 2.44 L Hgb 7.7 L Hct 22.3 L MCV 91.5 MCH 31.5 MCHC 34.4 RDW 13.6 Plt Count 223 MPV 8.8 Neut % (Auto) 78.8 H Lymph % (Auto) 11.0 [place]ulloch % (Auto) 9.6 H Eos % (Auto) 0.4 Baso % (Auto) 0.2 Neut # (Auto) 11.6 H Lymph # (Auto) 1.6 [place]och # (Auto) 1.4 H Eos # (Auto) 0.1 Baso # (Auto) 0.0 WBC Differential . Differential Comment Auto diff final Sodium 136 Potassium 3.1 L Chloride 99 Carbon Dioxide 29.1 Anion Gap 8 BUN 7 Creatinine 1.11 Estimated GFR 65 L POC Glucose 237 H Random Glucose 144 H Calcium 8.3 L Phosphorus 2.7 Magnesium 2.1 Total Bilirubin 0.4 AST 17 ALT 33 Alkaline Phosphatase 74 Total Protein 7.0 D Albumin 2.9 L 03/04/18 05:09 WBC RBC Hgb Hct MCV MCH MCHC RDW Plt Count MPV Neut % (Auto) Lymph % (Auto) [place] % (Auto) Eos % (Auto) Baso % (Auto) Neut # (Auto) Lymph # (Auto) [place] # (Auto) Eos # (Auto) Baso # (Auto) WBC Differential Differential Comment Sodium Potassium Chloride Carbon Dioxide Anion Gap BUN Creatinine Estimated GFR POC Glucose 183 H Random Glucose Calcium Phosphorus Magnesium Total Bilirubin AST ALT Alkaline Phosphatase Total Protein Albumin - Imaging Impressions Abdomen/Pelvis CT 03/04/18 00:00 CONCLUSION: Short segment of ileal small bowel notable for mild concentric wall thickening which may reflect a focally ischemic segment following recent embolization for GI bleeding. Close clinical follow-up recommended. - Procedures s/p mesenteric angiogram with embolization [facility] 03/02/18 Assessment and Plan - Plan 72-year-old man with Essential hypertension Monitor HR and BP keep MAP>65mmHg. Holding BP meds Obstructive sleep apnea History of pulmonary fibrosis Continue with oxygen keep sats >92% Incentive spirometry while awake Albuterol/ipratropium aerosols every 4 hours with albuterol aerosols every 2 hours as needed dyspnea Check CXR Lower GI bleed -status post embolization/Gelfoam with 1 mm gelfoam to SMA terminal ileum Acute blood loss anemia Internal hemorrhoid s/p mesenteric angiogram with embolization [facility] 03/02/18 Dr. Vega is following Monitor CBC Pantoprazole for GI prophylaxis Diabetes mellitus Hypothyroidism Sliding scale insulin with Accu-Cheks to maintain euglycemia. Holding Januvia 100 mg daily while n.p.o. Continue levothyroxine 75 mcg daily Physical therapy evaluate and treat
[2018-03-04] MEDS: Ciprofloxacin 400 MG/200 ML 400 MG/200 ML PIGGYBACK IV.SIG SCH (14:39)
--- NOTE | 2018-03-04 14:40 | P.PNGI ---
Subjective Interval history: Pt is resting in bed, accompanied by , he is with severe left sided pain to palpation. No BM, no bleeding <Radha Callaway - Last Filed: 03/04/18 14:35> Physical Exam Vital signs: Vital Signs 03/03/18 15:49 03/03/18 17:00 03/03/18 19:00 Temperature 98.7 F 98.9 F Pulse Rate 101 H 104 H 102 H Respiratory Rate 22 18 Blood Pressure 143/65 H 131/60 Pulse Oximetry 97 98 03/03/18 20:00 03/03/18 20:16 03/03/18 21:00 Temperature 98.9 F 98.9 F Pulse Rate 114 H 104 H 116 H Respiratory Rate 18 22 16 Blood Pressure 155/67 H 158/68 H Pulse Oximetry 98 97 98 03/03/18 22:00 03/03/18 23:00 03/04/18 00:00 Temperature 98.7 F 98.7 F 98.7 F Pulse Rate 106 H 109 H 106 H Respiratory Rate 18 17 18 Blood Pressure 146/63 H 139/59 L 139/65 Pulse Oximetry 98 98 98 03/04/18 04:00 03/04/18 04:43 Temperature 98.8 F Pulse Rate 97 H Respiratory Rate 18 18 Blood Pressure 139/60 Pulse Oximetry 98 Intake & Output 03/03/18 03/04/18 03/04/18 19:59 06:59 18:59 Intake Total Output Total Balance Weight Intake: IV NS Inj 1,000 ML @ 84 mls/hr IV. CONT .[id number] [facility] Rx#:[id number] Oral Output: Urine Stool Urine/Stool Mix Other: Date of Last Bowel Movement # Bowel Movements # Incontinent Bowel Movements Narrative: GENERAL: NAD SKIN: Warm and dry. HEAD: Normocephalic. EYES: No scleral icterus. NECK: Supple, trachea midline. No JVD or lymphadenopathy. CARDIOVASCULAR: Regular rate and rhythm without murmurs, gallops, or rubs. RESPIRATORY: Breath sounds equal bilaterally. No accessory muscle use. GASTROINTESTINAL: Abdomen distended, LLq pain to touch MUSCULOSKELETAL: No cyanosis, or edema. Neuro: alert and oriented <Radha Callaway - Last Filed: 03/04/18 14:35> Vital signs: Vital Signs 03/03/18 21:00 03/03/18 22:00 11/03/18 23:00 Temperature 98.9 F 98.7 F 98.7 F Pulse Rate 116 H 106 H 109 H Respiratory Rate 16 18 17 Blood Pressure 158/68 H 146/63 H 139/59 L Pulse Oximetry 98 98 98 03/04/18 00:00 03/04/18 04:00 03/04/18 04:43 Temperature 98.7 F 98.8 F Pulse Rate 106 H 97 H Respiratory Rate 18 18 18 Blood Pressure 139/65 139/60 Pulse Oximetry 98 98 03/04/18 08:00 03/04/18 10:00 03/04/18 12:00 Temperature 98.5 F 98.6 F Pulse Rate 96 H 100 H 105 H Respiratory Rate 20 21 Blood Pressure 151/66 H 145/65 H Pulse Oximetry 98 98 Intake & Output 03/04/18 03/04/18 03/05/18 06:59 18:59 06:59 Intake Total Output Total Balance Weight Intake: Oral Output: Urine Other: Date of Last Bowel Movement 03/02/18 <Loulou Méndez - Last Filed: 03/04/18 19:36> Results - Labs CBC & Chem 7: 03/04/18 04:01 03/04/18 04:01 Laboratory Results - last 24 hr 03/03/18 03/04/18 03/04/18 18:00 01:39 EST 04:01 WBC 14.7 H RBC 2.44 L Hgb 7.7 L Hct 22.3 L MCV 91.5 MCH 31.5 MCHC 34.4 RDW 13.6 Plt Count 223 MPV 8.8 Neut % (Auto) 78.8 H Lymph % (Auto) 11.0 D[place]key % (Auto) 9.6 H Eos % (Auto) 0.4 Baso % (Auto) 0.2 Neut # (Auto) 11.6 H Lymph # (Auto) 1.6 D[place]key # (Auto) 1.4 H Eos # (Auto) 0.1 Baso # (Auto) 0.0 WBC Differential . Differential Comment Auto diff final Sodium Potassium Chloride Carbon Dioxide Anion Gap BUN Creatinine Estimated GFR POC Glucose 186 H 237 H Random Glucose Calcium Phosphorus Magnesium Total Bilirubin AST ALT Alkaline Phosphatase Total Protein Albumin 03/04/18 03/04/18 03/04/18 04:01 05:09 13:31 WBC RBC Hgb Hct MCV MCH MCHC RDW Plt Count MPV Neut % (Auto) Lymph % (Auto) [place]key % (Auto) Eos % (Auto) Baso % (Auto) Neut # (Auto) Lymph # (Auto) [place] # (Auto) Eos # (Auto) Baso # (Auto) WBC Differential Differential Comment Sodium 136 Potassium 3.1 L Chloride 99 Carbon Dioxide 29.1 Anion Gap 8 BUN 7 Creatinine 1.11 Estimated GFR 65 L POC Glucose 183 H 167 H Random Glucose 144 H Calcium 8.3 L Phosphorus 2.7 Magnesium 2.1 Total Bilirubin 0.4 AST 17 ALT 33 Alkaline Phosphatase 74 Total Protein 7.0 D Albumin 2.9 L - Imaging Impressions Abdomen/Pelvis CT 03/04/18 00:00 CONCLUSION: Short segment of ileal small bowel notable for mild concentric wall thickening which may reflect a focally ischemic segment following recent embolization for GI bleeding. Close clinical follow-up recommended. - Procedures s/p mesenteric angiogram with embolization [facility] 03/02/18 <Radha Callaway - Last Filed: 03/04/18 14:35> - Labs CBC & Chem 7: 03/04/18 04:01 03/04/18 04:01 Laboratory Results - last 24 hr 03/04/18 03/04/18 03/04/18 01:39 EST 04:01 04:01 WBC 14.7 H RBC 2.44 L Hgb 7.7 L Hct 22.3 L MCV 91.5 MCH 31.5 MCHC 34.4 RDW 13.6 Plt Count 223 MPV 8.8 Neut % (Auto) 78.8 H Lymph % (Auto) 11.0 Dickey % (Auto) 9.6 H Eos % (Auto) 0.4 Baso % (Auto) 0.2 Neut # (Auto) 11.6 H Lymph # (Auto) 1.6 D[place]key # (Auto) 1.4 H Eos # (Auto) 0.1 Baso # (Auto) 0.0 WBC Differential . Differential Comment Auto diff final Sodium 136 Potassium 3.1 L Chloride 99 Carbon Dioxide 29.1 Anion Gap 8 BUN 7 Creatinine 1.11 Estimated GFR 65 L POC Glucose 237 H Random Glucose 144 H Calcium 8.3 L Phosphorus 2.7 Magnesium 2.1 Total Bilirubin 0.4 AST 17 ALT 33 Alkaline Phosphatase 74 Total Protein 7.0 D Albumin 2.9 L 03/04/18 03/04/18 03/04/18 05:09 13:31 19:09 WBC RBC Hgb Hct MCV MCH MCHC RDW Plt Count MPV Neut % (Auto) Lymph % (Auto) [place] % (Auto) Eos % (Auto) Baso % (Auto) Neut # (Auto) Lymph # (Auto) [place]key # (Auto) Eos # (Auto) Baso # (Auto) WBC Differential Differential Comment Sodium Potassium Chloride Carbon Dioxide Anion Gap BUN Creatinine Estimated GFR POC Glucose 183 H 167 H 198 H Random Glucose Calcium Phosphorus Magnesium Total Bilirubin AST ALT Alkaline Phosphatase Total Protein Albumin - Imaging Impressions Abdomen X-Ray 03/04/18 00:00 CONCLUSION: Nonspecific gas pattern with air throughout the GI tract. No evidence of pathologic distention, free air or mass effect. Abdomen/Pelvis CT 03/04/18 00:00 CONCLUSION: Short segment of ileal small bowel notable for mild concentric wall thickening which may reflect a focally ischemic segment following recent embolization for GI bleeding. Close clinical follow-up recommended. Venous Doppler Study 03/04/18 13:17 CONCLUSION: The study is negative for upper extremity deep venous thrombosis. <Loulou Méndez - Last Filed: 03/04/18 19:36> Assessment and Plan - Plan - GI bleed- No more bleeding, hgb seems to be stable. Pt was transferred from [place] on 03/02 for GI bleed described as significant BRBPR. Patient a colonoscopy 02/22 at [facility] which revealed internal hemorrhoids and distal AVM that was cauterized. Patient started bleeding on 02/28, subsequently had another colonoscopy 03/01 revealed acute clot s/p epi and clipped, but pt cont. to bleed so he was transferred to [facility] [place] [facility] for embolization by interventional radiology. On admission, Hemoglobin 8.4, today is 7.9. Patient is s/p IR intervention 03/02, patient had patent celiac and MAGGIE. SMA revealed possible bleed at the terminal ileum. Gelfoam and 1 mm close provided. Patient is hemodynamically stable. Inquiring about diet. - LLQ pain/ischemia post embolization Abdomen/Pelvis CT 03/04/18 Short segment of ileal small bowel notable for mild concentric wall thickening which may reflect a focally ischemic segment following recent embolization for GI bleeding. Close clinical follow-up recommended. - pmh of diabetes mellitus, hypertension, obstructive sleep apnea, hypothyroidism and pulmonary fibrosis who was Plan: - clear liquid diet - KUB today and in the am - Bowel regimen - Monitor hh - Transfuse as needed - Notify GI for active bleed - Cont. Protonix - Supportive care - Pt seen and examined by Dr. Méndez and myself and this note is written on her behalf. <Radha Callaway - Last Filed: 03/04/18 14:35> - Attending Attestation seen, examined agree with above iv antibiotics consult surgery <Loulou Méndez - Last Filed: 03/04/18 19:36>
--- NOTE | 2018-03-04 14:44 | US ---
EXAM DATE: 03/04/2018 2:27 PM EST AGE/SEX: 72 years / Male INDICATIONS: Right arm swelling. CLINICAL DATA: This is the patient's initial encounter. Patient reports that signs and symptoms have been present for 1 day and indicates a pain score of 1/10. MEDICAL/SURGICAL HISTORY: Hypertension. Hypothyroidism. Diabetes. Sleep apnea. Pulmonary fibro sis. . Colonoscopy. COMPARISON: No prior exams available for comparison. FINDINGS: The vessels are compressible and augmentation response is documented. No filling defects a re seen. The flow is phasic with respiration. Other: None. CONCLUSION: The study is negative for upper extremity deep venous thrombosis. Electronically signed by: Zan Eid MD 03/04/2018 2:43 PM EST
--- NOTE | 2018-03-04 17:33 | XR ---
EXAM DATE: 03/04/2018 5:30 PM EST AGE/SEX: 72 years / Male INDICATIONS: Epigastric pain. Distention. GI bleed. CLINICAL DATA: This is the patient's initial encounter. Patient reports that signs and symptoms have been present for 1 day and indicates a pain score of 5/10. MEDICAL/SURGICAL HISTORY: . Hypertension. Hypothyroidism. Diabetes. Sleep apnea. Pulmonary fibr osis. . Colonoscopy. . COMPARISON: No prior exams available for comparison. FINDINGS: Nonspecific gas pattern is seen. There is air throughout the gastrointestinal tract. There is no evid ence of pathologic distention, mass effect or evidence of free air. CONCLUSION: Nonspecific gas pattern with air throughout the GI tract. No evidence of pathologic distention, free air or mass effect. Electronically signed by: Zan Eid MD 03/04/2018 5:32 PM EST
--- NOTE | 2018-03-04 20:25 | P.CONGS ---
[facility] Gen Surgery Consult Note Reason for consult: other (GI bleed) Narrative: CONSULTATION NOTE FOR SURGICAL ATTENDING, DR. 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 He is never had any surgery before Review of Systems All other systems reviewed negative except as stated in HPI Ears, Nose, Mouth, and Throat: Reports hearing loss Neurologic: Reports abnormal hearing PMFSH - History History Provided By: Patient, Family Member - Medical History Medical History: Medical History (Last Reviewed 03/04/18 @ 20:21 by Rebel Cuevas MD) Diabetes mellitus Essential hypertension Hypothyroidism Obstructive sleep apnea Pulmonary fibrosis - Surgical History Surgical History: Surgical History (Last Reviewed 03/04/18 @ 20:21 by Rebel Cuevas MD) Status post colonoscopy - Family History Family History: Family History (Last Reviewed 03/04/18 @ 20:21 by Rebel Cuevas MD) Other Family history unremarkable - Social History I have reviewed the patient's Social History: Yes - Tobacco History Second Hand Smoke Exposure: Yes Tobacco Use In Past 30 Days: Yes Smoking Status: Current every day smoker Tobacco Type: Cigarettes - Alcohol History How Often Do You Have a Drink Containing Alcohol: Monthly or less - Substance Use History Substance History: No History of Abuse Medications and Allergies Active Medications: Active Medications Acetaminophen (Tylenol) 650 mg PO Q6H PRN PRN Reason: PAIN 1-10 AND/OR FEVER >101F Last Admin: 03/04/18 01:55 EDT Dose: 650 mg Al Hydroxide/Mg Hydroxide (Milk Of Paulina Linick) 30 ml PO Q12H PRN PRN Reason: Mild Constipation Albuterol (Albuterol Neb (Prn)) 2.5 mg NEB Q2HR NEB PRN PRN Reason: SHORTNESS OF BREATH/WHEEZING Albuterol (Duoneb Neb (Valeria)) 1 ampul NEB Q4HR NEB VALERIA Last Admin: 03/04/18 19:51 Dose: Not Given Bisacodyl (Dulcolax Supp) 10 mg RECTAL DAILY PRN PRN Reason: SEVERE CONSITIPATION Chlorhexidine Gluconate (Chlorhexidine 2% Cloth) 3 pack TOPICAL DAILY@0400 VALERIA Stop: 03/08/18 03:59 Last Admin: 03/04/18 04:42 Dose: 3 pack Chlorhexidine Gluconate (Chlorhexidine 2% Cloth) 3 pack TOPICAL DAILY@0400 PRN PRN Reason: Extra cloth needed Stop: 03/08/18 03:59 Dextrose (D50w Vial) 50 ml IV.PUSH UNSCH PRN PRN Reason: PER HYPOGLYCEMIA PROTOCOL Glucagon (Glucagon Inj) 1 mg OTHER PRN PRN PRN Reason: for Hypoglycemia Protocol Magnesium Sulfate 4 gm/ Sodium (Chloride) 100 mls @ 50 mls/hr IV.SIG UNSCH PRN PRN Reason: For Magnesium 0.9 - 1.1 mg/dL Magnesium Sulfate 2 gm/ Sodium (Chloride) 100 mls @ 50 mls/hr IV.SIG UNSCH PRN PRN Reason: For Magnesium 1.2 - 1.6 mg/dL Potassium Chloride (Kcl 40 Meq Premix Inj) 40 meq in 100 mls @ 25 mls/hr IV.SIG Q2H PRN PRN Reason: For Potassium 2.8 - 3.2 mEq/L Potassium Chloride (Kcl 20 Meq Premix Inj) 20 meq in 100 mls @ 50 mls/hr IV.SIG Q2H PRN PRN Reason: For Potassium 3.3 - 3.5 mEq/L Potassium Chloride (Kcl 40 Meq Premix Inj) 40 meq in 100 mls @ 25 mls/hr IV.SIG UNSCH PRN PRN Reason: For Potassium 3.3 - 3.5 mEq/L Potassium Chloride (Kcl 20 Meq Premix Inj) 20 meq in 100 mls @ 50 mls/hr IV.SIG Q2H PRN PRN Reason: For Potassium 2.8 - 3.2 mEq/L Potassium Phosphate 30 mmol/ (Sodium Chloride) 260 mls @ 42 mls/hr IV.SIG UNSCH PRN PRN Reason: SEE LABEL COMMENTS Sodium Phosphate 30 mmol/ (Sodium Chloride) 260 mls @ 42 mls/hr IV.SIG UNSCH PRN PRN Reason: For Phosphorus < 2.5 mg/dL Metronidazole/Sodium Chloride (Flagyl 500 Mg Inj) 100 mls @ 100 mls/hr IV.SIG Q8H VALERIA Last Admin: 03/04/18 13:39 Dose: 100 mls/hr Ciprofloxacin/Dextrose (Cipro 400 Mg/200 Ml Inj) 400 mg in 200 mls @ 200 mls/ hr IV.SIG Q12H VALERIA Last Admin: 03/04/18 14:39 Dose: 200 mls/hr Insulin Aspart (Novolog Insulin Correctional Sugar Inj) 0 unit SQ Q6HR VALERIA; Protocol Last Admin: 03/04/18 05:36 Dose: 2 unit Lactulose (Lactulose Liq) 30 ml PO DAILY PRN PRN Reason: SEVERE CONSITIPATION Magnesium Oxide (Mag-Ox) 800 mg PO UNSCH PRN PRN Reason: For Magnesium 1.2 - 1.6 mg/dL Pantoprazole Sodium (Protonix Inj) 40 mg IV.PUSH DAILY [facility] Last Admin: 03/04/18 09:42 Dose: 40 mg Potassium Bicarb/Potassium Chloride (K-Lyte Cl Eff) 50 meq PO UNSCH PRN PRN Reason: For Potassium 3.3 - 3.5 mEq/L Potassium Phosphate (K-Phos Original) 2,000 mg PO Q4H PRN PRN Reason: Phosphorus Less Than 2.5 mg/dL Potassium Phosphate (K-Phos Original) 2,000 mg PO UNSCH PRN PRN Reason: SEE LABEL COMMENTS Senna/Docusate Sodium (Natasha-Colace) 1 tab PO BID [facility] Last Admin: 03/04/18 09:42 Dose: 1 tab Sennosides (Senokot) 17.2 mg PO Q12H PRN PRN Reason: Moderate Constipation Sodium Chloride (Ns Flush) 2 ml IV.FLUSH BID [facility] Last Admin: 03/04/18 09:42 Dose: 2 ml Sodium Chloride (Ns Flush) 2 ml IV.FLUSH PRN PRN PRN Reason: FLUSH AFTER USING IV ACCESS Temazepam (Restoril) 15 mg PO HS PRN PRN Reason: INSOMNIA Allergies Allergy/AdvReac Type Severity Reaction Status Date / Time No Known Allergies Allergy Verified 03/02/18 17:21 Home Medications Medication Instructions Recorded Confirmed Type amlodipine 10 mg PO DAILY 03/05/18 03/05/18 History enalapril maleate 20 mg PO BID 03/05/18 03/05/18 History glimepiride BID 03/05/18 History levothyroxine [Synthroid] 75 mcg PO DAILY 03/05/18 03/05/18 History metformin BID 03/05/18 History pantoprazole 40 DAILY 03/05/18 03/05/18 History sitagliptin [Januvia] 100 mg PO DAILY 03/05/18 03/05/18 History tiotropium bromide [Spiriva with 1 cap INHALATION DAILY 03/05/18 03/05/18 History HandiHaler] triamterene-hydrochlorothiazid 0.5 tab PO DAILY 03/05/18 03/05/18 History Exam Vital signs: Vital Signs 03/03/18 22:00 03/03/18 23:00 03/04/18 00:00 Temperature 98.7 F 98.7 F 98.7 F Pulse Rate 106 H 109 H 106 H Respiratory Rate 18 17 18 Blood Pressure 146/63 H 139/59 L 139/65 Pulse Oximetry 98 98 98 03/04/18 04:00 03/04/18 04:43 03/04/18 08:00 Temperature 98.8 F 98.5 F Pulse Rate 97 H 96 H Respiratory Rate 18 18 20 Blood Pressure 139/60 151/66 H Pulse Oximetry 98 98 03/04/18 10:00 03/04/18 12:00 Temperature 98.6 F Pulse Rate 100 H 105 H Respiratory Rate 21 Blood Pressure 145/65 H Pulse Oximetry 98 Intake & Output 03/04/18 03/04/18 03/05/18 06:59 18:59 06:59 Intake Total Output Total Balance Weight Intake: Oral Output: Urine Other: Date of Last Bowel Movement 03/02/18 Narrative: Patient alert oriented Hard of hearing Imaging mammogram stable Neck supple without JVD chest is clear heart regular rate Abdomen slightly distended soft with mild soreness right lower quadrant No surgical scars Positive bowel sounds throughout Extremities moves all motion is well no clubbing cyanosis or edema Arterial catheter right groin Results - Labs 03/05/18 12:02 03/05/18 05:58 Laboratory Results - last 24 hr 03/04/18 03/04/18 03/04/18 01:39 EST 04:01 04:01 WBC 14.7 H RBC 2.44 L Hgb 7.7 L Hct 22.3 L MCV 91.5 MCH 31.5 MCHC 34.4 RDW 13.6 Plt Count 223 MPV 8.8 Neut % (Auto) 78.8 H Lymph % (Auto) 11.0 [place] % (Auto) 9.6 H Eos % (Auto) 0.4 Baso % (Auto) 0.2 Neut # (Auto) 11.6 H Lymph # (Auto) 1.6 [place] # (Auto) 1.4 H Eos # (Auto) 0.1 Baso # (Auto) 0.0 WBC Differential . Differential Comment Auto diff final Sodium 136 Potassium 3.1 L Chloride 99 Carbon Dioxide 29.1 Anion Gap 8 BUN 7 Creatinine 1.11 Estimated GFR 65 L POC Glucose 237 H Random Glucose 144 H Calcium 8.3 L Phosphorus 2.7 Magnesium 2.1 Total Bilirubin 0.4 AST 17 ALT 33 Alkaline Phosphatase 74 Total Protein 7.0 D Albumin 2.9 L 03/04/18 03/04/18 03/04/18 05:09 13:31 19:09 WBC RBC Hgb Hct MCV MCH MCHC RDW Plt Count MPV Neut % (Auto) Lymph % (Auto) [place] % (Auto) Eos % (Auto) Baso % (Auto) Neut # (Auto) Lymph # (Auto) [place] # (Auto) Eos # (Auto) Baso # (Auto) WBC Differential Differential Comment Sodium Potassium Chloride Carbon Dioxide Anion Gap BUN Creatinine Estimated GFR POC Glucose 183 H 167 H 198 H Random Glucose Calcium Phosphorus Magnesium Total Bilirubin AST ALT Alkaline Phosphatase Total Protein Albumin - Imaging Imaging: ITS Impressions Chest X-Ray 03/03/18 08:08 CONCLUSION: 1. Pulmonary vascular congestion. 2. Mildly prominent cardiac silhouette. 3. Small left pleural effusion. Abdomen X-Ray 03/04/18 00:00 CONCLUSION: Nonspecific gas pattern with air throughout the GI tract. No evidence of pathologic distention, free air or mass effect. Abdomen/Pelvis CT 03/04/18 00:00 CONCLUSION: Short segment of ileal small bowel notable for mild concentric wall thickening which may reflect a focally ischemic segment following recent embolization for GI bleeding. Close clinical follow-up recommended. Venous Doppler Study 03/04/18 13:17 CONCLUSION: The study is negative for upper extremity deep venous thrombosis. 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 CT scan of the abdomen shows thickening of the terminal ileum he does have some mild abdominal discomfort has not had a rebleed sepsis embolization We will watch him clinically he does have some abdominal discomfort and distention I suspect is from an ileus. If he declines clinically or has increasing abdominal pain he may require exploration Discussed Condition With: Dr. Méndez - Attending Attestation CONSULTATION NOTE FOR SURGICAL ATTENDING, DR. REBEL CUEVAS I attest that I had a [id number] encounter with the patient on the same day, and personally performed and documented my assessment and findings in the medical record. The following services were provided during this hospital visit: Chart data review, vital sign assessments/reviewing monitor data Review of consultations notes if present. Medication orders/review and/or management Ordering and/or reviewing lab tests Ordering and/or interpreting/reviewing x-rays and/or diagnostic studies Care of the patient and discussion of the patient with the care team Documentation time To help prompt me to consider important information that might be impacting today's encounter and assessment, Information from prior notes written by myself or my colleagues may have been "brought forward/copy and pasted" into today's note.
[2018-03-04] MEDS: Temazepam 15 MG Capsule PO PRN (20:57)
[2018-03-05] MEDS: Insulin NovoLOG Aspart Correctional Sugar Inj SQ SCH ×5 (02:23→23:37)
[2018-03-05] MEDS: Ciprofloxacin 400 MG/200 ML 400 MG/200 ML PIGGYBACK IV.SIG SCH ×2 (02:23→15:25)
[2018-03-05] MEDS: Chlorhexidine Gluconate 2% 1 Pack (2 Cloths) TOPICAL SCH (03:30)
[2018-03-05 06:26] LABS: Baso # (Auto) 0.1 th/mm3 (0.0-0.2); Baso % (Auto) 0.8 % (0.0-2.0); Eos # (Auto) 0.2 th/mm3 (0.0-0.4); Eos % (Auto) 1.3 % (0.0-4.0); Hematocrit 23.8 % (39.0-51.0); Hemoglobin 8.2 gm/dL (13.0-17.0); Lymph # (Auto) 1.4 th/mm3 (1.0-4.8); Lymph % (Auto) 9.8 % (9.0-44.0); Mean Corpuscular HGB Conc 34.4 % (32.0-36.0); Mean Corpuscular Hemoglobin 31.1 pg (27.0-34.0); Mean Corpuscular Volume 90.4 fL (80.0-100.0); Mean Platelet Volume 8.9 fL (7.0-11.0); Mono # (Auto) 1.3 th/mm3 (0.0-0.9); Mono % (Auto) 8.8 % (0.0-8.0); Neut # (Auto) 11.2 th/mm3 (1.8-7.7); Neut % (Auto) 79.3 % (16.0-70.0); Platelet Count 283 th/mm3 (150-450); Red Blood Count 2.63 mil/mm3 (4.50-5.90); Red Cell Distribution Width 14.2 % (11.6-17.2); White Blood Count 14.2 th/mm3 (4.0-11.0)
[2018-03-05 06:51] LABS: Albumin 2.7 g/dL (3.4-5.0); Anion Gap 8 meq/L (5-15); Aspartate Aminotransferase 16 U/L (15-37); Blood Urea Nitrogen 9 mg/dL (7-18); Calcium 8.4 mg/dL (8.5-10.1); Carbon Dioxide 31.5 meq/L (21.0-32.0); Chloride 98 meq/L (98-107); Glomerular Filtration Rate 71 mL/min (>89); Glucose,Random 176 mg/dL (74-106); Potassium 3.7 meq/L (3.5-5.1); Sodium 137 meq/L (136-145)
[2018-03-05 06:52] LABS: Alanine Aminotransferase 29 U/L (12-78)
[2018-03-05 06:55] LABS: Alkaline Phosphatase 77 U/L (45-117); Total Protein 7.1 g/dL (6.4-8.2)
[2018-03-05] MEDS ORDERED: amLODIPine 10 MG Tablet PO ONE (09:30)
[2018-03-05] MEDS: Pantoprazole Inj 40 MG Vial IV.PUSH SCH (09:41)
[2018-03-05] MEDS: Senna/Docusate Sodium 8.6/50 MG Tablet PO SCH ×2 (09:41→20:37)
--- NOTE | 2018-03-05 10:15 | P.PNIM ---
Subjective Interval history: Patient reports improvement in abdominal pain today. He had a bowel movement with some evidence of blood in it but this could be old blood based on consistency. Hemoglobin has trended upward spontaneously. Physical Exam Vital signs: Vital Signs 03/04/18 12:00 03/04/18 20:00 03/04/18 22:32 Temperature 98.6 F 98.5 F Pulse Rate 105 H 100 H Respiratory Rate 21 18 18 Blood Pressure 145/65 H 174/74 H Pulse Oximetry 98 100 03/05/18 00:00 03/05/18 04:00 Temperature 98.5 F Pulse Rate 87 92 H Respiratory Rate 18 Blood Pressure 152/67 H 163/70 H Pulse Oximetry 100 Intake & Output 03/04/18 03/05/18 03/05/18 18:59 06:59 18:59 Intake Total 300 / 300 220 / 220 300 / 300 Output Total 300 / 300 Balance 300 / 300 -80 / -80 300 / 300 Weight 111.5 kg Intake: IV 300 / 300 100 / 100 300 / 300 Cipro 400 MG/200 ML Inj 400 mg 200 / 200 200 / 200 In 200 ml @ 200 mls/hr IV.SIG Q12H [facility]RIST[facility] Rx#:[id number] Flagyl 500 MG Inj 100 ML @ 100 100 / 100 100 / 100 100 / 100 mls/hr IV.SIG Q8H CRISTY Rx#: [id number] Oral 120 / 120 Output: Urine 300 / 300 Stool 0 / 0 Urine/Stool Mix 0 / 0 Other: Date of Last Bowel Movement 03/02/18 03/02/18 # Bowel Movements 0 # Incontinent Bowel Movements 0 Narrative: GENERAL: NAD, A&Ox3 HEAD: Normocephalic. NECK: Supple, trachea midline. No lymphadenopathy. EYES: No scleral icterus. No injection or drainage. CARDIOVASCULAR: Regular rate and rhythm without murmurs, gallops, or rubs. RESPIRATORY: Breath sounds equal bilaterally. No accessory muscle use. GASTROINTESTINAL: Abdomen soft, non-tender, nondistended. MUSCULOSKELETAL: No cyanosis, or edema. SKIN: Warm and dry. NEURO: No focal neurological deficits. Results - Labs CBC & Chem 7: 03/05/18 05:58 03/05/18 05:58 Laboratory Results - last 24 hr 03/04/18 03/04/18 03/05/18 13:31 19:09 02:21 WBC RBC Hgb Hct MCV MCH MCHC RDW Plt Count MPV Neut % (Auto) Lymph % (Auto) [place] % (Auto) Eos % (Auto) Baso % (Auto) Neut # (Auto) Lymph # (Auto) [place] # (Auto) Eos # (Auto) Baso # (Auto) WBC Differential Differential Comment Sodium Potassium Chloride Carbon Dioxide Anion Gap BUN Creatinine Estimated GFR POC Glucose 167 H 198 H 193 H Random Glucose Calcium Total Bilirubin AST ALT Alkaline Phosphatase Total Protein Albumin 03/05/18 03/05/18 03/05/18 05:58 05:58 05:58 WBC 14.2 H RBC 2.63 L Hgb 8.2 L Hct 23.8 L MCV 90.4 MCH 31.1 MCHC 34.4 RDW 14.2 Plt Count 283 MPV 8.9 Neut % (Auto) 79.3 H Lymph % (Auto) 9.8 [place] % (Auto) 8.8 H Eos % (Auto) 1.3 Baso % (Auto) 0.8 Neut # (Auto) 11.2 H Lymph # (Auto) 1.4 [place] # (Auto) 1.3 H Eos # (Auto) 0.2 Baso # (Auto) 0.1 WBC Differential . Differential Comment Auto diff final Sodium 137 Potassium 3.7 Chloride 98 Carbon Dioxide 31.5 Anion Gap 8 BUN 9 Creatinine 1.03 Estimated GFR 71 L POC Glucose 205 H Random Glucose 176 H Calcium 8.4 L Total Bilirubin 0.4 AST 16 ALT 29 Alkaline Phosphatase 77 Total Protein 7.1 Albumin 2.7 L 03/05/18 09:26 WBC RBC Hgb Hct MCV MCH MCHC RDW Plt Count MPV Neut % (Auto) Lymph % (Auto) [place] % (Auto) Eos % (Auto) Baso % (Auto) Neut # (Auto) Lymph # (Auto) [place] # (Auto) Eos # (Auto) Baso # (Auto) WBC Differential Differential Comment Sodium Potassium Chloride Carbon Dioxide Anion Gap BUN Creatinine Estimated GFR POC Glucose 220 H Random Glucose Calcium Total Bilirubin AST ALT Alkaline Phosphatase Total Protein Albumin - Imaging Impressions Abdomen X-Ray 03/04/18 00:00 CONCLUSION: Nonspecific gas pattern with air throughout the GI tract. No evidence of pathologic distention, free air or mass effect. Venous Doppler Study 03/04/18 13:17 CONCLUSION: The study is negative for upper extremity deep venous thrombosis. - Procedures s/p mesenteric angiogram with embolization SMA 03/02/18 Assessment and Plan - Plan 72-year-old man admitted secondary to GI bleed Acute GI bleed Braman acute blood loss anemia AVM of terminal ileum Internal hemorrhoid Status post embolization of SMA on 03/02/2018 Continue PPI GI following Continue monitoring CBC Abdominal pain May be secondary to ileus versus irritation from blood Improving Monitor bowel habits Monitor bowel sounds Obstructive sleep apnea History of pulmonary fibrosis Continue oxygen Continue breathing treatments as needed Follow clinically Diabetes mellitus type 2 Follow blood sugars Insulin sliding scale Diabetic diet Hypothyroidism Continue levothyroxine Hypertension Continue baseline treatment Follow blood pressures Adjust treatments as needed Reintroduced baseline treatments today As needed clonidine As needed IV enalapril DVT Prophylaxis SCDs
--- NOTE | 2018-03-05 10:27 | IR ---
EXAM DATE: 03/02/2018 7:27 PM EDT AGE/SEX: 72 years / Male INDICATIONS: Patient presents with GI Bleed. Transfer from [facility]. CLINICAL DATA: This is the patient's initial encounter. Patient reports that signs and symptoms have been present for 1 day and indicates a pain score of 0/10. MEDICAL/SURGICAL HISTORY: Hypertension. Emphysema. Hypothyroidism. Diabetes, Pulmonary fibro sis Colonoscopy, EGD, Recent large AVM in cecum ablated COMPARISON: C, ABDOMEN 2V FLAT & UPRIGHT, 03/04/2018. . FLUORO TIME (min): 19.5 IMAGE SERIES: 19 ACCESS SITE: Right femoral artery SEDATION TIME (min): 75 CONTRAST (cc): 120cc Visipaque (iodixanol) MEDICATION(S): 2mg midazolam (Versed) IV ; 200mcg fentanyl (Sublimaze) IV ; ; ; DEVICE(S): Right colic artery Gelfoam 12-7MM ; Right colic artery embolic coil Hilal .018X 1CM ; Right common fe moral artery Angio-Seal 6F PROCEDURE : 1. Ultrasound-guided puncture of the access site. 2. Conscious sedation with continuous EKG and Oximetry monitoring. 3. Angiography of the celiac 4. Angiography of the SMA 5. Angiography of the MAGGIE 6. Subselective embolization of a small abnormal vessels feeding from a distal branch of the SMA Clinical history: The patient is a 72-year-old who was seen at [facility] by Dr. Harshad alonzo. The patient had a known lower GI bleed. 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 The patient has received multiple units of packed red blood cells. In spite of the ablative endoscopic therapy the patient co ntinued to experience episodes of recurrent lower gastrointestinal bleeding. The patient was transfer red [facility] for angiography with embolization. The risks, benefits and alternatives to the procedure were explained and verbal and written consent w as obtained. The site was prepped in sterile fashion. Full sterile technique was used, including ca p, mask, sterile gloves and gown and a large sterile sheet. Hand hygiene and 2% chlorhexidine and/or betadine/alcohol prep was utilized per protocol for cutaneous antisepsis. Sterile gel and sterile p robe cover were utilized for ultrasound guidance. The skin and subcutaneous tissues were infiltrated with local anesthetic solution. With ultrasound and fluoroscopic guidance the right common femoral artery was punctured and a vascula r sheath was placed. A 0.035 angle Glidewire and a 4 [place] hook catheter was advanced into the abdominal aorta. Selective injections of the celiac, the SMA and the MAGGIE were performed. In addition, multiple subselective inj ections of the SMA and the MAGGIE were performed. Celiac axis: The celiac axis is patent. The splenic and hepatic are patent. SMA: Subselective evaluation of the SMA demonstrated a small active area of hemorrhage which appeared to localize in the region of the terminal ileum. There appear to be a small draining vein suggesting arterial venous malformation. A renegade high flow was advanced through a single interval glide catheter and out into the small ves simona at the base of the AVM. Subselective embolization with approximately 0.5 cc of Gelfoam and a 1 mm coil was performed. At the conclusion of the procedure there was no residual flow evident. MAGGIE: The MAGGIE was cannulated. Subselective injections of the MAGGIE were performed. No significant arteri al abnormality was identified. The puncture site was closed with manual pressure and hemostasis was obtained. The patient tolerated the procedure well and there were no complications. Conscious sedation was performed with the prescribed dosages and duration as above in the presence of an independent trained radiology nurse to assist in the monitoring of the patient. EKG and oximetry remained stable throughout the procedure. CONCLUSION: 1. Subselective embolization of a small abnormal vessel in the region of the TI. The patient tolerat ed the procedure well. Electronically signed by: Eladio Banks MD 03/05/2018 10:26 AM EST
--- NOTE | 2018-03-05 10:38 | P.PNGS ---
Subjective Interval history: DAILY PROGRESS NOTE FOR SURGICAL ATTENDING, DR. TAN FERMIN Up to chair at bedside Physical Exam Vital signs: Vital Signs 03/04/18 12:00 03/04/18 20:00 03/04/18 22:32 Temperature 98.6 F 98.5 F Pulse Rate 105 H 100 H Respiratory Rate 21 18 18 Blood Pressure 145/65 H 174/74 H Pulse Oximetry 98 100 03/05/18 00:00 03/05/18 04:00 Temperature 98.5 F Pulse Rate 87 92 H Respiratory Rate 18 Blood Pressure 152/67 H 163/70 H Pulse Oximetry 100 Intake & Output 03/04/18 03/05/18 03/05/18 18:59 06:59 18:59 Intake Total 300 / 300 220 / 220 300 / 300 Output Total 300 / 300 Balance 300 / 300 -80 / -80 300 / 300 Weight 111.5 kg Intake: IV 300 / 300 100 / 100 300 / 300 Cipro 400 MG/200 ML Inj 400 mg 200 / 200 200 / 200 In 200 ml @ 200 mls/hr IV.SIG Q12H [facility] Rx#:[id number] Flagyl 500 MG Inj 100 ML @ 100 100 / 100 100 / 100 100 / 100 mls/hr IV.SIG Q8H [facility] Rx#: [id number] Oral 120 / 120 Output: Urine 300 / 300 Stool 0 / 0 Urine/Stool Mix 0 / 0 Other: Date of Last Bowel Movement 03/02/18 03/02/18 # Bowel Movements 0 # Incontinent Bowel Movements 0 Narrative: Alert and awake Abd: distended in bilateral upper quadrants; tender to palpation in RIGHT mid quadrant Results - Labs 03/05/18 12:02 03/05/18 05:58 Laboratory Results - last 24 hr 03/04/18 03/04/18 03/05/18 13:31 19:09 02:21 WBC RBC Hgb Hct MCV MCH MCHC RDW Plt Count MPV Neut % (Auto) Lymph % (Auto) [place] % (Auto) Eos % (Auto) Baso % (Auto) Neut # (Auto) Lymph # (Auto) [place] # (Auto) Eos # (Auto) Baso # (Auto) WBC Differential Differential Comment Sodium Potassium Chloride Carbon Dioxide Anion Gap BUN Creatinine Estimated GFR POC Glucose 167 H 198 H 193 H Random Glucose Calcium Total Bilirubin AST ALT Alkaline Phosphatase Total Protein Albumin 03/05/18 03/05/18 03/05/18 05:58 05:58 05:58 WBC 14.2 H RBC 2.63 L Hgb 8.2 L Hct 23.8 L MCV 90.4 MCH 31.1 MCHC 34.4 RDW 14.2 Plt Count 283 MPV 8.9 Neut % (Auto) 79.3 H Lymph % (Auto) 9.8 [place] % (Auto) 8.8 H Eos % (Auto) 1.3 Baso % (Auto) 0.8 Neut # (Auto) 11.2 H Lymph # (Auto) 1.4 [place] # (Auto) 1.3 H Eos # (Auto) 0.2 Baso # (Auto) 0.1 WBC Differential . Differential Comment Auto diff final Sodium 137 Potassium 3.7 Chloride 98 Carbon Dioxide 31.5 Anion Gap 8 BUN 9 Creatinine 1.03 Estimated GFR 71 L POC Glucose 205 H Random Glucose 176 H Calcium 8.4 L Total Bilirubin 0.4 AST 16 ALT 29 Alkaline Phosphatase 77 Total Protein 7.1 Albumin 2.7 L 03/05/18 09:26 WBC RBC Hgb Hct MCV MCH MCHC RDW Plt Count MPV Neut % (Auto) Lymph % (Auto) [place] % (Auto) Eos % (Auto) Baso % (Auto) Neut # (Auto) Lymph # (Auto) [place] # (Auto) Eos # (Auto) Baso # (Auto) WBC Differential Differential Comment Sodium Potassium Chloride Carbon Dioxide Anion Gap BUN Creatinine Estimated GFR POC Glucose 220 H Random Glucose Calcium Total Bilirubin AST ALT Alkaline Phosphatase Total Protein Albumin - Imaging Imaging: ITS Impressions Mesenteric Arteriogram 03/02/18 00:00 CONCLUSION: 1. Subselective embolization of a small abnormal vessel in the region of the TI. The patient tolerated the procedure well. Chest X-Ray 03/03/18 08:08 CONCLUSION: 1. Pulmonary vascular congestion. 2. Mildly prominent cardiac silhouette. 3. Small left pleural effusion. Abdomen X-Ray 03/04/18 00:00 CONCLUSION: Nonspecific gas pattern with air throughout the GI tract. No evidence of pathologic distention, free air or mass effect. Abdomen/Pelvis CT 03/04/18 00:00 CONCLUSION: Short segment of ileal small bowel notable for mild concentric wall thickening which may reflect a focally ischemic segment following recent embolization for GI bleeding. Close clinical follow-up recommended. Venous Doppler Study 03/04/18 13:17 CONCLUSION: The study is negative for upper extremity deep venous thrombosis. 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 TAN FERMIN I agree with above assessment and plan. The exam, history, and the medical decision-making described in the above note were completed with the assistance of the mid-level provider. I reviewed and agree with the findings presented. I attest that I had a [id number] encounter with the patient on the same day, and personally performed and documented my assessment and findings in the medical record. The following services were provided during this hospital visit: Chart data review, vital sign assessments/reviewing monitor data Review of consultations notes if present. Medication orders/review and/or management Ordering and/or reviewing lab tests Ordering and/or interpreting/reviewing x-rays and/or diagnostic studies Care of the patient and discussion of the patient with the care team Documentation time To help prompt me to consider important information that might be impacting today's encounter and assessment, Information from prior notes written by myself or my colleagues may have been "brought forward/copy and pasted" into today's note.
[2018-03-05 12:29] LABS: Baso # (Auto) 0.1 th/mm3 (0.0-0.2); Baso % (Auto) 0.4 % (0.0-2.0); Eos # (Auto) 0.1 th/mm3 (0.0-0.4); Eos % (Auto) 0.6 % (0.0-4.0); Hematocrit 24.3 % (39.0-51.0); Hemoglobin 8.4 gm/dL (13.0-17.0); Lymph # (Auto) 1.2 th/mm3 (1.0-4.8); Lymph % (Auto) 8.6 % (9.0-44.0); Mean Corpuscular HGB Conc 34.5 % (32.0-36.0); Mean Corpuscular Hemoglobin 31.4 pg (27.0-34.0); Mean Corpuscular Volume 91.1 fL (80.0-100.0); Mean Platelet Volume 8.5 fL (7.0-11.0); Mono # (Auto) 1.1 th/mm3 (0.0-0.9); Mono % (Auto) 7.7 % (0.0-8.0); Neut # (Auto) 11.8 th/mm3 (1.8-7.7); Neut % (Auto) 82.7 % (16.0-70.0); Platelet Count 294 th/mm3 (150-450); Red Blood Count 2.67 mil/mm3 (4.50-5.90); Red Cell Distribution Width 14.1 % (11.6-17.2); White Blood Count 14.2 th/mm3 (4.0-11.0)
--- NOTE | 2018-03-05 14:47 | P.PNGI ---
Subjective Interval history: Patient sitting up in chair at bedside Spouse visiting Patient reports to rust colored bowel movements this a.m. <Cinthia Manley - Last Filed: 03/05/18 14:39> Physical Exam Vital signs: Vital Signs 03/04/18 20:00 03/04/18 22:32 03/05/18 00:00 Temperature 98.5 F 98.5 F Pulse Rate 100 H 87 Respiratory Rate 18 18 18 Blood Pressure 174/74 H 152/67 H Pulse Oximetry 100 100 03/05/18 04:00 03/05/18 08:00 03/05/18 11:13 Temperature Pulse Rate 92 H 100 H Respiratory Rate 19 21 Blood Pressure 163/70 H 186/84 H Pulse Oximetry 100 99 Intake & Output 03/04/18 03/05/18 03/05/18 18:59 06:59 18:59 Intake Total 300 / 300 220 / 220 300 / 300 Output Total 300 / 300 Balance 300 / 300 -80 / -80 300 / 300 Weight 111.5 kg Intake: IV 300 / 300 100 / 100 300 / 300 Cipro 400 MG/200 ML Inj 400 mg 200 / 200 200 / 200 In 200 ml @ 200 mls/hr IV.SIG Q12H [facility] Rx#:[id number] Flagyl 500 MG Inj 100 ML @ 100 100 / 100 100 / 100 100 / 100 mls/hr IV.SIG Q8H [facility] Rx#: [id number] Oral 120 / 120 Output: Urine 300 / 300 Stool 0 / 0 Urine/Stool Mix 0 / 0 Other: Date of Last Bowel Movement 03/02/18 03/02/18 03/05/18 # Bowel Movements 0 # Incontinent Bowel Movements 0 - Constitutional no acute distress - Routine HEENT Exam Head: Present: normocephalic - Routine Respiratory Exam Present: CTA bilaterally. Absent: accessory muscle use - Routine Abdominal Exam Present: soft, normoactive bowel sounds. Absent: tenderness, distended, guarding, firm - Routine Extremities Exam Absent: edema - Routine Skin Exam Present: dry, warm. Absent: pallor - Routine Neurological Exam Present: alert, oriented X3 - Routine Psychiatric Exam Present: normal affect, cooperative <Cinthia Manley - Last Filed: 03/05/18 14:39> Vital signs: Vital Signs 03/04/18 20:00 03/04/18 22:32 03/05/18 00:00 Temperature 98.5 F 98.5 F Pulse Rate 100 H 87 Respiratory Rate 18 18 18 Blood Pressure 174/74 H 152/67 H Pulse Oximetry 100 100 03/05/18 04:00 03/05/18 08:00 03/05/18 11:13 Temperature Pulse Rate 92 H 100 H Respiratory Rate 19 21 Blood Pressure 163/70 H 186/84 H Pulse Oximetry 100 99 03/05/18 12:00 03/05/18 16:00 Temperature Pulse Rate 102 H 101 H Respiratory Rate 21 21 Blood Pressure 152/98 H 136/63 Pulse Oximetry Intake & Output 03/04/18 03/05/18 03/05/18 18:59 06:59 18:59 Intake Total 300 / 300 220 / 220 1200 / 1200 Output Total 300 / 300 750 / 750 Balance 300 / 300 -80 / -80 450 / 450 Weight 111.5 kg Intake: IV 300 / 300 100 / 100 600 / 600 Cipro 400 MG/200 ML Inj 400 mg 200 / 200 400 / 400 In 200 ml @ 200 mls/hr IV.SIG Q12H [facility] Rx#:[id number] Flagyl 500 MG Inj 100 ML @ 100 100 / 100 100 / 100 200 / 200 mls/hr IV.SIG Q8H [facility] Rx#: [id number] Oral 120 / 120 600 / 600 Output: Urine 300 / 300 750 / 750 Stool 0 / 0 Urine/Stool Mix 0 / 0 Other: Date of Last Bowel Movement 03/02/18 03/02/18 03/05/18 # Bowel Movements 0 2 # Incontinent Bowel Movements 0 <Loulou Méndez - Last Filed: 03/05/18 18:12> Results - Labs CBC & Chem 7: 03/05/18 12:02 03/05/18 05:58 Laboratory Results - last 24 hr 03/04/18 03/05/18 03/05/18 19:09 02:21 05:58 WBC 14.2 H RBC 2.63 L Hgb 8.2 L Hct 23.8 L MCV 90.4 MCH 31.1 MCHC 34.4 RDW 14.2 Plt Count 283 MPV 8.9 Neut % (Auto) 79.3 H Lymph % (Auto) 9.8 [place] % (Auto) 8.8 H Eos % (Auto) 1.3 Baso % (Auto) 0.8 Neut # (Auto) 11.2 H Lymph # (Auto) 1.4 [place] # (Auto) 1.3 H Eos # (Auto) 0.2 Baso # (Auto) 0.1 WBC Differential . Differential Comment Auto diff final Sodium Potassium Chloride Carbon Dioxide Anion Gap BUN Creatinine Estimated GFR POC Glucose 198 H 193 H Random Glucose Calcium Total Bilirubin AST ALT Alkaline Phosphatase Total Protein Albumin 03/05/18 03/05/18 03/05/18 05:58 05:58 09:26 WBC RBC Hgb Hct MCV MCH MCHC RDW Plt Count MPV Neut % (Auto) Lymph % (Auto) [place] % (Auto) Eos % (Auto) Baso % (Auto) Neut # (Auto) Lymph # (Auto) [place] # (Auto) Eos # (Auto) Baso # (Auto) WBC Differential Differential Comment Sodium 137 Potassium 3.7 Chloride 98 Carbon Dioxide 31.5 Anion Gap 8 BUN 9 Creatinine 1.03 Estimated GFR 71 L POC Glucose 205 H 220 H Random Glucose 176 H Calcium 8.4 L Total Bilirubin 0.4 AST 16 ALT 29 Alkaline Phosphatase 77 Total Protein 7.1 Albumin 2.7 L 03/05/18 03/05/18 11:53 12:02 WBC 14.2 H RBC 2.67 L Hgb 8.4 L Hct 24.3 L MCV 91.1 MCH 31.4 MCHC 34.5 RDW 14.1 Plt Count 294 MPV 8.5 Neut % (Auto) 82.7 H Lymph % (Auto) 8.6 L [place] % (Auto) 7.7 Eos % (Auto) 0.6 Baso % (Auto) 0.4 Neut # (Auto) 11.8 H Lymph # (Auto) 1.2 [place] # (Auto) 1.1 H Eos # (Auto) 0.1 Baso # (Auto) 0.1 WBC Differential . Differential Comment Auto diff final Sodium Potassium Chloride Carbon Dioxide Anion Gap BUN Creatinine Estimated GFR POC Glucose 198 H Random Glucose Calcium Total Bilirubin AST ALT Alkaline Phosphatase Total Protein Albumin - Imaging Impressions Mesenteric Arteriogram 03/02/18 00:00 CONCLUSION: 1. Subselective embolization of a small abnormal vessel in the region of the TI. The patient tolerated the procedure well. Abdomen X-Ray 03/04/18 00:00 CONCLUSION: Nonspecific gas pattern with air throughout the GI tract. No evidence of pathologic distention, free air or mass effect. Venous Doppler Study 03/04/18 13:17 CONCLUSION: The study is negative for upper extremity deep venous thrombosis. - Procedures s/p mesenteric angiogram with embolization SMA 03/02/18 <Cinthia Manley - Last Filed: 03/05/18 14:39> - Labs CBC & Chem 7: 03/05/18 12:02 03/05/18 05:58 Laboratory Results - last 24 hr 03/04/18 03/05/18 03/05/18 19:09 02:21 05:58 WBC 14.2 H RBC 2.63 L Hgb 8.2 L Hct 23.8 L MCV 90.4 MCH 31.1 MCHC 34.4 RDW 14.2 Plt Count 283 MPV 8.9 Neut % (Auto) 79.3 H Lymph % (Auto) 9.8 [place] % (Auto) 8.8 H Eos % (Auto) 1.3 Baso % (Auto) 0.8 Neut # (Auto) 11.2 H Lymph # (Auto) 1.4 [place] # (Auto) 1.3 H Eos # (Auto) 0.2 Baso # (Auto) 0.1 WBC Differential . Differential Comment Auto diff final Sodium Potassium Chloride Carbon Dioxide Anion Gap BUN Creatinine Estimated GFR POC Glucose 198 H 193 H Random Glucose Calcium Total Bilirubin AST ALT Alkaline Phosphatase Total Protein Albumin 03/05/18 03/05/18 03/05/18 05:58 05:58 09:26 WBC RBC Hgb Hct MCV MCH MCHC RDW Plt Count MPV Neut % (Auto) Lymph % (Auto) [place] % (Auto) Eos % (Auto) Baso % (Auto) Neut # (Auto) Lymph # (Auto) [place] # (Auto) Eos # (Auto) Baso # (Auto) WBC Differential Differential Comment Sodium 137 Potassium 3.7 Chloride 98 Carbon Dioxide 31.5 Anion Gap 8 BUN 9 Creatinine 1.03 Estimated GFR 71 L POC Glucose 205 H 220 H Random Glucose 176 H Calcium 8.4 L Total Bilirubin 0.4 AST 16 ALT 29 Alkaline Phosphatase 77 Total Protein 7.1 Albumin 2.7 L 03/05/18 03/05/18 03/05/18 11:53 12:02 17:21 WBC 14.2 H RBC 2.67 L Hgb 8.4 L Hct 24.3 L MCV 91.1 MCH 31.4 MCHC 34.5 RDW 14.1 Plt Count 294 MPV 8.5 Neut % (Auto) 82.7 H Lymph % (Auto) 8.6 L [place] % (Auto) 7.7 Eos % (Auto) 0.6 Baso % (Auto) 0.4 Neut # (Auto) 11.8 H Lymph # (Auto) 1.2 [place] # (Auto) 1.1 H Eos # (Auto) 0.1 Baso # (Auto) 0.1 WBC Differential . Differential Comment Auto diff final Sodium Potassium Chloride Carbon Dioxide Anion Gap BUN Creatinine Estimated GFR POC Glucose 198 H 180 H Random Glucose Calcium Total Bilirubin AST ALT Alkaline Phosphatase Total Protein Albumin - Imaging Impressions Mesenteric Arteriogram 03/02/18 00:00 CONCLUSION: 1. Subselective embolization of a small abnormal vessel in the region of the TI. The patient tolerated the procedure well. <Loulou Méndez - Last Filed: 03/05/18 18:12> Assessment and Plan - Plan - GI bleed- No more bleeding, hgb seems to be stable. Pt was transferred from [facility] on 03/02 for GI bleed described as significant BRBPR. Patient a colonoscopy 02/22 at [facility] which revealed internal hemorrhoids and distal AVM that was cauterized. Patient started bleeding on 02/28, subsequently had another colonoscopy 03/01 revealed acute clot s/p epi and clipped, but pt cont. to bleed so he was transferred to [facility] for embolization by interventional radiology. On admission, Hemoglobin 8.4, today is 7.9. Patient is s/p IR intervention 03/02, patient had patent celiac and MAGGIE. SMA revealed possible bleed at the terminal ileum. Gelfoam and 1 mm close provided. Patient is hemodynamically stable. Inquiring about diet. - LLQ pain/ischemia post embolization Abdomen/Pelvis CT 03/04/18 Short segment of ileal small bowel notable for mild concentric wall thickening which may reflect a focally ischemic segment following recent embolization for GI bleeding. Close clinical follow-up recommended. 03/05/2018 GI bleeding No obvious bleeding reported. Patient had 2 bowel movements this a.m., rashmi colored. States tolerating diet clear liquids without any nausea or vomiting. Hemoglobin 8.4 hematocrit 24.3 stable Plan -Clear liquid diet -Monitor for bleeding -Notify GI immediately for any active bleeding -Continue PPI-pantoprazole 40 mg IV push daily -Avoid anticoagulants -Bowel regimen -Monitor hemoglobin and hematocrit -Supportive care -Further recommendations to follow This patient has been seen by myself and Dr. Méndez and this note is written on her behalf - Attending Attestation Dr. Méndez <Cinthia Manley - Last Filed: 03/05/18 14:39> - Attending Attestation seen, examined agree with above improving-can advance diet in am if better <Loulou Méndez - Last Filed: 03/05/18 18:12>
[2018-03-05] MEDS: Acetaminophen 325 MG Tablet PO PRN (20:37)
[2018-03-05] MEDS: Temazepam 15 MG Capsule PO PRN (20:37)
[2018-03-06] MEDS: Ciprofloxacin 400 MG/200 ML 400 MG/200 ML PIGGYBACK IV.SIG SCH ×2 (02:08→16:20)
[2018-03-06] MEDS: Chlorhexidine Gluconate 2% 1 Pack (2 Cloths) TOPICAL SCH (04:28)
[2018-03-06] MEDS: Insulin NovoLOG Aspart Correctional Sugar Inj SQ SCH ×4 (05:56→23:43)
[2018-03-06] MEDS: Senna/Docusate Sodium 8.6/50 MG Tablet PO SCH ×2 (09:02→21:57)
[2018-03-06] MEDS: Levothyroxine 75 MCG Tablet PO SCH (09:02)
[2018-03-06] MEDS: amLODIPine 10 MG Tablet PO SCH (09:03)
[2018-03-06] MEDS: Pantoprazole Inj 40 MG Vial IV.PUSH SCH (09:03)
[2018-03-06] MEDS: Tiotropium Bromide 18 MCG/ACT Inhaler INH SCH (09:15)
[2018-03-06 10:17] LABS: Baso % (Auto) 0.2 % (0.0-2.0); Eos # (Auto) 0.2 th/mm3 (0.0-0.4); Hematocrit 21.7 % (39.0-51.0); Hemoglobin 7.4 gm/dL (13.0-17.0); Lymph % (Auto) 10.7 % (9.0-44.0); Mean Corpuscular HGB Conc 34.1 % (32.0-36.0); Mean Corpuscular Hemoglobin 31.7 pg (27.0-34.0); Mean Corpuscular Volume 92.8 fL (80.0-100.0); Mean Platelet Volume 8.2 fL (7.0-11.0); Mono % (Auto) 10.8 % (0.0-8.0); Neut # (Auto) 7.1 th/mm3 (1.8-7.7); Neut % (Auto) 76.3 % (16.0-70.0); Platelet Count 270 th/mm3 (150-450); Red Blood Count 2.34 mil/mm3 (4.50-5.90); Red Cell Distribution Width 13.9 % (11.6-17.2); White Blood Count 9.3 th/mm3 (4.0-11.0)
[2018-03-06 10:50] LABS: Alanine Aminotransferase 23 U/L (12-78); Albumin 2.5 g/dL (3.4-5.0); Anion Gap 10 meq/L (5-15); Aspartate Aminotransferase 17 U/L (15-37); Blood Urea Nitrogen 12 mg/dL (7-18); Calcium 8.3 mg/dL (8.5-10.1); Carbon Dioxide 28.5 meq/L (21.0-32.0); Chloride 97 meq/L (98-107); Glomerular Filtration Rate 72 mL/min (>89); Glucose,Random 149 mg/dL (74-106); Potassium 3.6 meq/L (3.5-5.1); Sodium 135 meq/L (136-145)
[2018-03-06 10:53] LABS: Alkaline Phosphatase 73 U/L (45-117); Total Protein 6.8 g/dL (6.4-8.2)
--- NOTE | 2018-03-06 11:13 | P.PNIM ---
Subjective Interval history: Downward trend in hemoglobin today. Previously patient had a hemoglobin drop from 8.2-8.4. He is now down to 7.4. Physical Exam Vital signs: Vital Signs 03/05/18 11:13 03/05/18 12:00 03/05/18 16:00 Temperature Pulse Rate 102 H 101 H Respiratory Rate 21 21 Blood Pressure 152/98 H 136/63 Pulse Oximetry 99 03/05/18 20:00 03/06/18 00:00 03/06/18 04:00 Temperature 98.3 F 98.0 F 97.6 F Pulse Rate 96 H 80 83 Respiratory Rate 18 18 18 Blood Pressure 151/54 H 101/53 L 119/56 L Pulse Oximetry 100 100 100 03/06/18 08:00 Temperature 98.1 F Pulse Rate 81 Respiratory Rate 18 Blood Pressure 105/51 L Pulse Oximetry 98 Intake & Output 03/05/18 03/06/18 03/06/18 18:59 06:59 18:59 Intake Total 1200 / 1200 400 / 400 Output Total 750 / 750 450 / 450 Balance 450 / 450 -50 / -50 Intake: IV 600 / 600 400 / 400 Cipro 400 MG/200 ML Inj 400 mg 400 / 400 200 / 200 In 200 ml @ 200 mls/hr IV.SIG Q12H [facility] Rx#:[id number] Flagyl 500 MG Inj 100 ML @ 100 200 / 200 200 / 200 mls/hr IV.SIG Q8H [facility] Rx#: [id number] Oral 600 / 600 Output: Urine 750 / 750 450 / 450 Other: Date of Last Bowel Movement 03/05/18 03/05/18 03/05/18 # Bowel Movements 2 Narrative: GENERAL: NAD, A&Ox3 HEAD: Normocephalic. NECK: Supple, trachea midline. No lymphadenopathy. EYES: No scleral icterus. No injection or drainage. CARDIOVASCULAR: Regular rate and rhythm without murmurs, gallops, or rubs. RESPIRATORY: Breath sounds equal bilaterally. No accessory muscle use. GASTROINTESTINAL: Abdomen soft, non-tender, nondistended. MUSCULOSKELETAL: No cyanosis, or edema. SKIN: Warm and dry. NEURO: No focal neurological deficits. Results - Labs CBC & Chem 7: 03/06/18 09:44 03/06/18 09:49 Laboratory Results - last 24 hr 03/05/18 03/05/18 03/05/18 11:53 12:02 17:21 WBC 14.2 H RBC 2.67 L Hgb 8.4 L Hct 24.3 L MCV 91.1 MCH 31.4 MCHC 34.5 RDW 14.1 Plt Count 294 MPV 8.5 Neut % (Auto) 82.7 H Lymph % (Auto) 8.6 L [place] % (Auto) 7.7 Eos % (Auto) 0.6 Baso % (Auto) 0.4 Neut # (Auto) 11.8 H Lymph # (Auto) 1.2 [place] # (Auto) 1.1 H Eos # (Auto) 0.1 Baso # (Auto) 0.1 WBC Differential . Differential Comment Auto diff final Sodium Potassium Chloride Carbon Dioxide Anion Gap BUN Creatinine Estimated GFR POC Glucose 198 H 180 H Random Glucose Calcium Total Bilirubin AST ALT Alkaline Phosphatase Total Protein Albumin 03/05/18 03/05/18 03/06/18 18:28 23:33 05:45 WBC RBC Hgb Hct MCV MCH MCHC RDW Plt Count MPV Neut % (Auto) Lymph % (Auto) [place] % (Auto) Eos % (Auto) Baso % (Auto) Neut # (Auto) Lymph # (Auto) [place] # (Auto) Eos # (Auto) Baso # (Auto) WBC Differential Differential Comment Sodium Potassium Chloride Carbon Dioxide Anion Gap BUN Creatinine Estimated GFR POC Glucose 229 H 166 H 193 H Random Glucose Calcium Total Bilirubin AST ALT Alkaline Phosphatase Total Protein Albumin 03/06/18 03/06/18 09:44 09:49 WBC 9.3 RBC 2.34 L Hgb 7.4 L Hct 21.7 L MCV 92.8 MCH 31.7 MCHC 34.1 RDW 13.9 Plt Count 270 MPV 8.2 Neut % (Auto) 76.3 H Lymph % (Auto) 10.7 [place] % (Auto) 10.8 H Eos % (Auto) 2.0 Baso % (Auto) 0.2 Neut # (Auto) 7.1 Lymph # (Auto) 1.0 [place] # (Auto) 1.0 H Eos # (Auto) 0.2 Baso # (Auto) 0.0 WBC Differential . Differential Comment Auto diff final Sodium 135 L Potassium 3.6 Chloride 97 L Carbon Dioxide 28.5 Anion Gap 10 BUN 12 Creatinine 1.02 Estimated GFR 72 L POC Glucose Random Glucose 149 H Calcium 8.3 L Total Bilirubin 0.3 AST 17 ALT 23 Alkaline Phosphatase 73 Total Protein 6.8 Albumin 2.5 L - Procedures s/p mesenteric angiogram with embolization SMA 03/02/18 Assessment and Plan - Plan 72-year-old man admitted secondary to GI bleed Bleeding is recurrent. Patient has a downward trend in hemoglobin today. Transfused 2 units packed red blood cells. Nuclear medicine bleed scan ordered. Acute GI bleed [place] acute blood loss anemia AVM of terminal ileum Internal hemorrhoid Bleeding still appears to be present intermittently Status post embolization of SMA on 03/02/2018 Continue PPI GI following Continue monitoring CBC Abdominal pain May be secondary to ileus versus irritation from blood Improving Monitor bowel habits Monitor bowel sounds Obstructive sleep apnea History of pulmonary fibrosis Continue oxygen Continue breathing treatments as needed Follow clinically Diabetes mellitus type 2 Follow blood sugars Insulin sliding scale Diabetic diet Hypothyroidism Continue levothyroxine Hypertension Continue baseline treatment Follow blood pressures Adjust treatments as needed Reintroduced baseline treatments today As needed clonidine As needed IV enalapril DVT Prophylaxis SCDs
[2018-03-06] MEDS ORDERED: Sodium Chlor 0.9% Inj 250 ML IV.SIG SCH (12:00)
--- NOTE | 2018-03-06 12:31 | P.PNGS ---
Subjective Patient reports: no new complaints, feels better, no flatus, no bowel movement Interval history: DAILY PROGRESS NOTE FOR SURGICAL ATTENDING, DR. TAN FERMIN Abdomen less sore Has not had a bowel movement or flatus Is drinking some Overall feels better but has some pinpoint tenderness in the right upper quadrant Physical Exam Vital signs: Vital Signs 03/05/18 16:00 03/05/18 20:00 03/06/18 00:00 Temperature 98.3 F 98.0 F Pulse Rate 101 H 96 H 80 Respiratory Rate 21 18 18 Blood Pressure 136/63 151/54 H 101/53 L Pulse Oximetry 100 100 03/06/18 04:00 03/06/18 08:00 Temperature 97.6 F 98.1 F Pulse Rate 83 81 Respiratory Rate 18 18 Blood Pressure 119/56 L 105/51 L Pulse Oximetry 100 98 Intake & Output 03/05/18 03/06/18 03/06/18 18:59 06:59 18:59 Intake Total 1200 / 1200 400 / 400 Output Total 750 / 750 450 / 450 Balance 450 / 450 -50 / -50 Intake: IV 600 / 600 400 / 400 Cipro 400 MG/200 ML Inj 400 mg 400 / 400 200 / 200 In 200 ml @ 200 mls/hr IV.SIG Q12H CRISTY Rx#:[id number] Flagyl 500 MG Inj 100 ML @ 100 200 / 200 200 / 200 mls/hr IV.SIG Q8H CRISTY Rx#: [id number] Oral 600 / 600 Output: Urine 750 / 750 450 / 450 Other: Date of Last Bowel Movement 03/05/18 03/05/18 03/05/18 # Bowel Movements 2 Narrative: Sitting up in the chair sitting up in the chair at bedside Good respiratory effort Abdomen slightly distended soft mild soreness right upper quadrant no rebound or guarding Results - Labs 03/06/18 09:44 03/06/18 09:49 Laboratory Results - last 24 hr 03/05/18 03/05/18 03/05/18 12:02 17:21 18:28 WBC 14.2 H RBC 2.67 L Hgb 8.4 L Hct 24.3 L MCV 91.1 MCH 31.4 MCHC 34.5 RDW 14.1 Plt Count 294 MPV 8.5 Neut % (Auto) 82.7 H Lymph % (Auto) 8.6 L Gilliam % (Auto) 7.7 Eos % (Auto) 0.6 Baso % (Auto) 0.4 Neut # (Auto) 11.8 H Lymph # (Auto) 1.2 Gilliam # (Auto) 1.1 H Eos # (Auto) 0.1 Baso # (Auto) 0.1 WBC Differential . Differential Comment Auto diff final Sodium Potassium Chloride Carbon Dioxide Anion Gap BUN Creatinine Estimated GFR POC Glucose 180 H 229 H Random Glucose Calcium Total Bilirubin AST ALT Alkaline Phosphatase Total Protein Albumin 03/05/18 03/06/18 03/06/18 23:33 05:45 09:44 WBC 9.3 RBC 2.34 L Hgb 7.4 L Hct 21.7 L MCV 92.8 MCH 31.7 MCHC 34.1 RDW 13.9 Plt Count 270 MPV 8.2 Neut % (Auto) 76.3 H Lymph % (Auto) 10.7 Gilliam % (Auto) 10.8 H Eos % (Auto) 2.0 Baso % (Auto) 0.2 Neut # (Auto) 7.1 Lymph # (Auto) 1.0 Gilliam # (Auto) 1.0 H Eos # (Auto) 0.2 Baso # (Auto) 0.0 WBC Differential . Differential Comment Auto diff final Sodium Potassium Chloride Carbon Dioxide Anion Gap BUN Creatinine Estimated GFR POC Glucose 166 H 193 H Random Glucose Calcium Total Bilirubin AST ALT Alkaline Phosphatase Total Protein Albumin 03/06/18 03/06/18 09:49 11:18 WBC RBC Hgb Hct MCV MCH MCHC RDW Plt Count MPV Neut % (Auto) Lymph % (Auto) Gilliam % (Auto) Eos % (Auto) Baso % (Auto) Neut # (Auto) Lymph # (Auto) Gilliam # (Auto) Eos # (Auto) Baso # (Auto) WBC Differential Differential Comment Sodium 135 L Potassium 3.6 Chloride 97 L Carbon Dioxide 28.5 Anion Gap 10 BUN 12 Creatinine 1.02 Estimated GFR 72 L POC Glucose 180 H Random Glucose 149 H Calcium 8.3 L Total Bilirubin 0.3 AST 17 ALT 23 Alkaline Phosphatase 73 Total Protein 6.8 Albumin 2.5 L - Imaging Imaging: ITS Impressions Mesenteric Arteriogram 03/02/18 00:00 CONCLUSION: 1. Subselective embolization of a small abnormal vessel in the region of the TI. The patient tolerated the procedure well. Chest X-Ray 03/03/18 08:08 CONCLUSION: 1. Pulmonary vascular congestion. 2. Mildly prominent cardiac silhouette. 3. Small left pleural effusion. Abdomen X-Ray 03/04/18 00:00 CONCLUSION: Nonspecific gas pattern with air throughout the GI tract. No evidence of pathologic distention, free air or mass effect. Abdomen/Pelvis CT 03/04/18 00:00 CONCLUSION: Short segment of ileal small bowel notable for mild concentric wall thickening which may reflect a focally ischemic segment following recent embolization for GI bleeding. Close clinical follow-up recommended. Venous Doppler Study 03/04/18 13:17 CONCLUSION: The study is negative for upper extremity deep venous thrombosis. CT scan - abdomen: report reviewed, image reviewed CT scan - pelvis: report reviewed, image reviewed Additional studies: ITS Impressions Mesenteric Arteriogram 03/02/18 00:00 CONCLUSION: 1. Subselective embolization of a small abnormal vessel in the region of the TI. The patient tolerated the procedure well. Abdomen/Pelvis CT 03/04/18 00:00 CONCLUSION: Short segment of ileal small bowel notable for mild concentric wall thickening which may reflect a focally ischemic segment following recent embolization for GI bleeding. Close clinical follow-up recommended. 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 TAN FERMIN I attest that I had a lpov-op-endu encounter with the patient on the same day, and personally performed and documented my assessment and findings in the medical record. The following services were provided during this hospital visit: Chart data review, vital sign assessments/reviewing monitor data Review of consultations notes if present. Medication orders/review and/or management Ordering and/or reviewing lab tests Ordering and/or interpreting/reviewing x-rays and/or diagnostic studies Care of the patient and discussion of the patient with the care team Documentation time To help prompt me to consider important information that might be impacting today's encounter and assessment, Information from prior notes written by myself or my colleagues may have been "brought forward/copy and pasted" into today's note.
--- NOTE | 2018-03-06 15:32 | NM ---
EXAM DATE: 03/06/2018 3:21 PM EST AGE/SEX: 72 years / Male INDICATIONS: Hemorrhage. CLINICAL DATA: This is the patient's initial encounter. Patient reports that signs and symptoms have been present for 1 day and indicates a pain score of 0/10. MEDICAL/SURGICAL HISTORY: Diabetes mellitus type II. Hyperthyroidism. Hypertension. . Colonos copy. COMPARISON: Unknown, CT ABDOMEN & PELVIS W CONTRAST, 03/04/2018. . TECHNIQUE: Following the modified in vitro labeling of autologous red cells, dynamic continuous image s were acquired for two hours. ?? DOSE: 21 mCi Tc 99m Ultratag Labeled Red Blood Cells IV IMAGING TIME: 2 hr FINDINGS: Biodistribution: There is a very good labeling of red cells without significant uptake in the gastri c wall. There is good delineation of the blood pool of the spleen and abdominal vessels. Bleeding: No episodes of active GI bleeding are observed during two hours of continuous observation . CONCLUSION: 1. Negative GI bleeding scan Electronically signed by: Max Tejeda MD 03/06/2018 3:31 PM EST
--- NOTE | 2018-03-06 16:13 | XR ---
EXAM DATE: 03/06/2018 4:04 PM EST AGE/SEX: 72 years / Male INDICATIONS: Abdominal pain and distention CLINICAL DATA: This is the patient's subsequent encounter. Patient reports that signs and symptoms h ave been present for 2 days and indicates a pain score of 10/10. MEDICAL/SURGICAL HISTORY: . GI bleed Non-responsive. COMPARISON: [facility] [place], ABDOMEN 2V FLAT & UPRIGHT, 03/04/2018. . FINDINGS: 3 AP views of the abdomen and pelvis were obtained in demonstrate residual oral contrast in the colo n. There are multiple loops of borderline dilated air containing small bowel in the central left abdo men measuring up to 4.5 cm. This is not significantly changed from the prior study. There is no evide nce of free air on this supine study. Lung bases are clear. The bony structures remain intact. CONCLUSION: No significant change in the nonspecific bowel gas pattern. Electronically signed by: Esteban Nuno MD 03/06/2018 4:12 PM EST
--- NOTE | 2018-03-06 17:27 | P.PNGI ---
Subjective Interval history: Sitting up in chair at bedside Denies any nausea vomiting or active noted bleeding No BM today <Cinthia Manley - Last Filed: 03/06/18 17:16> Physical Exam Vital signs: Vital Signs 03/05/18 20:00 03/06/18 00:00 03/06/18 04:00 Temperature 98.3 F 98.0 F 97.6 F Pulse Rate 96 H 80 83 Respiratory Rate 18 18 18 Blood Pressure 151/54 H 101/53 L 119/56 L Pulse Oximetry 100 100 100 03/06/18 08:00 03/06/18 16:00 Temperature 98.1 F 98.6 F Pulse Rate 81 92 H Respiratory Rate 18 18 Blood Pressure 105/51 L 134/65 Pulse Oximetry 98 98 Intake & Output 03/05/18 03/06/18 03/06/18 18:59 06:59 18:59 Intake Total 1200 / 1200 400 / 400 Output Total 750 / 750 450 / 450 Balance 450 / 450 -50 / -50 Intake: IV 600 / 600 400 / 400 Cipro 400 MG/200 ML Inj 400 mg 400 / 400 200 / 200 In 200 ml @ 200 mls/hr IV.SIG Q12H CRISTY Rx#:[id number] Flagyl 500 MG Inj 100 ML @ 100 200 / 200 200 / 200 mls/hr IV.SIG Q8H CRISTY Rx#: [id number] Oral 600 / 600 Output: Urine 750 / 750 450 / 450 Other: Date of Last Bowel Movement 03/05/18 03/05/18 03/05/18 # Bowel Movements 2 - Constitutional no acute distress - Routine HEENT Exam Head: Present: normocephalic - Routine Respiratory Exam Present: CTA bilaterally. Absent: accessory muscle use - Routine Cardiovascular Exam Present: RRR - Routine Abdominal Exam Present: soft, normoactive bowel sounds, distended. Absent: tenderness, guarding, firm - Routine Extremities Exam Absent: edema - Routine Neurological Exam Present: alert - Routine Psychiatric Exam Present: normal affect, cooperative <Cinthia Manley - Last Filed: 03/06/18 17:16> Vital signs: Vital Signs 03/05/18 20:00 03/06/18 00:00 03/06/18 04:00 Temperature 98.3 F 98.0 F 97.6 F Pulse Rate 96 H 80 83 Respiratory Rate 18 18 18 Blood Pressure 151/54 H 101/53 L 119/56 L Pulse Oximetry 100 100 100 03/06/18 08:00 03/06/18 16:00 Temperature 98.1 F 98.6 F Pulse Rate 81 92 H Respiratory Rate 18 18 Blood Pressure 105/51 L 134/65 Pulse Oximetry 98 98 Intake & Output 03/05/18 03/06/18 03/06/18 18:59 06:59 18:59 Intake Total 1200 / 1200 400 / 400 1300 / 1300 Output Total 750 / 750 450 / 450 750 / 750 Balance 450 / 450 -50 / -50 550 / 550 Intake: IV 600 / 600 400 / 400 300 / 300 Cipro 400 MG/200 ML Inj 400 mg 400 / 400 200 / 200 200 / 200 In 200 ml @ 200 mls/hr IV.SIG Q12H CRISTY Rx#:[id number] Flagyl 500 MG Inj 100 ML @ 100 200 / 200 200 / 200 100 / 100 mls/hr IV.SIG Q8H CRISTY Rx#: [id number] Oral 600 / 600 1000 / 1000 Output: Urine 750 / 750 450 / 450 750 / 750 Other: Date of Last Bowel Movement 03/05/18 03/05/18 03/05/18 # Bowel Movements 2 0 <Loulou Méndez - Last Filed: 03/06/18 18:56> Results - Labs CBC & Chem 7: 03/06/18 09:44 03/06/18 09:49 Laboratory Results - last 24 hr 03/05/18 03/05/18 03/05/18 17:21 18:28 23:33 WBC RBC Hgb Hct MCV MCH MCHC RDW Plt Count MPV Neut % (Auto) Lymph % (Auto) Ferry % (Auto) Eos % (Auto) Baso % (Auto) Neut # (Auto) Lymph # (Auto) Ferry # (Auto) Eos # (Auto) Baso # (Auto) WBC Differential Differential Comment Sodium Potassium Chloride Carbon Dioxide Anion Gap BUN Creatinine Estimated GFR POC Glucose 180 H 229 H 166 H Random Glucose Calcium Total Bilirubin AST ALT Alkaline Phosphatase Total Protein Albumin 03/06/18 03/06/18 03/06/18 05:45 09:44 09:49 WBC 9.3 RBC 2.34 L Hgb 7.4 L Hct 21.7 L MCV 92.8 MCH 31.7 MCHC 34.1 RDW 13.9 Plt Count 270 MPV 8.2 Neut % (Auto) 76.3 H Lymph % (Auto) 10.7 Ferry % (Auto) 10.8 H Eos % (Auto) 2.0 Baso % (Auto) 0.2 Neut # (Auto) 7.1 Lymph # (Auto) 1.0 Ferry # (Auto) 1.0 H Eos # (Auto) 0.2 Baso # (Auto) 0.0 WBC Differential . Differential Comment Auto diff final Sodium 135 L Potassium 3.6 Chloride 97 L Carbon Dioxide 28.5 Anion Gap 10 BUN 12 Creatinine 1.02 Estimated GFR 72 L POC Glucose 193 H Random Glucose 149 H Calcium 8.3 L Total Bilirubin 0.3 AST 17 ALT 23 Alkaline Phosphatase 73 Total Protein 6.8 Albumin 2.5 L 03/06/18 11:18 WBC RBC Hgb Hct MCV MCH MCHC RDW Plt Count MPV Neut % (Auto) Lymph % (Auto) Ferry % (Auto) Eos % (Auto) Baso % (Auto) Neut # (Auto) Lymph # (Auto) Ferry # (Auto) Eos # (Auto) Baso # (Auto) WBC Differential Differential Comment Sodium Potassium Chloride Carbon Dioxide Anion Gap BUN Creatinine Estimated GFR POC Glucose 180 H Random Glucose Calcium Total Bilirubin AST ALT Alkaline Phosphatase Total Protein Albumin - Imaging Impressions Abdomen X-Ray 03/06/18 00:00 CONCLUSION: No significant change in the nonspecific bowel gas pattern. GI Bleed Scan Nuclear Medicine 03/06/18 00:00 CONCLUSION: 1. Negative GI bleeding scan - Procedures s/p mesenteric angiogram with embolization SMA 03/02/18 <Cinthia Manley - Last Filed: 03/06/18 17:16> - Labs CBC & Chem 7: 03/06/18 09:44 03/06/18 09:49 Laboratory Results - last 24 hr 03/05/18 03/06/18 03/06/18 23:33 05:45 09:44 WBC 9.3 RBC 2.34 L Hgb 7.4 L Hct 21.7 L MCV 92.8 MCH 31.7 MCHC 34.1 RDW 13.9 Plt Count 270 MPV 8.2 Neut % (Auto) 76.3 H Lymph % (Auto) 10.7 Ferry % (Auto) 10.8 H Eos % (Auto) 2.0 Baso % (Auto) 0.2 Neut # (Auto) 7.1 Lymph # (Auto) 1.0 Ferry # (Auto) 1.0 H Eos # (Auto) 0.2 Baso # (Auto) 0.0 WBC Differential . Differential Comment Auto diff final Sodium Potassium Chloride Carbon Dioxide Anion Gap BUN Creatinine Estimated GFR POC Glucose 166 H 193 H Random Glucose Calcium Total Bilirubin AST ALT Alkaline Phosphatase Total Protein Albumin 03/06/18 03/06/18 03/06/18 09:49 : 17:33 WBC RBC Hgb Hct MCV MCH MCHC RDW Plt Count MPV Neut % (Auto) Lymph % (Auto) Ferry % (Auto) Eos % (Auto) Baso % (Auto) Neut # (Auto) Lymph # (Auto) Ferry # (Auto) Eos # (Auto) Baso # (Auto) WBC Differential Differential Comment Sodium 135 L Potassium 3.6 Chloride 97 L Carbon Dioxide 28.5 Anion Gap 10 BUN 12 Creatinine 1.02 Estimated GFR 72 L POC Glucose 180 H 224 H Random Glucose 149 H Calcium 8.3 L Total Bilirubin 0.3 AST 17 ALT 23 Alkaline Phosphatase 73 Total Protein 6.8 Albumin 2.5 L - Imaging Impressions Abdomen X-Ray 03/06/18 00:00 CONCLUSION: No significant change in the nonspecific bowel gas pattern. GI Bleed Scan Nuclear Medicine 03/06/18 00:00 CONCLUSION: 1. Negative GI bleeding scan <Loulou Méndez - Last Filed: 03/06/18 18:56> Assessment and Plan - Plan - GI bleed- No more bleeding, hgb seems to be stable. Pt was transferred from [place] on 03/02 for GI bleed described as significant BRBPR. 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 Patient started bleeding on 02/28, subsequently had another colonoscopy 03/01 revealed acute clot s/p epi and clipped, but pt cont. to bleed so he was transferred to [facility] [place] for embolization by interventional radiology. On admission, Hemoglobin 8.4, today is 7.9. Patient is s/p IR intervention 03/02, patient had patent celiac and MAGGIE. SMA revealed possible bleed at the terminal ileum. Gelfoam and 1 mm close provided. Patient is hemodynamically stable. Inquiring about diet. - LLQ pain/ischemia post embolization Abdomen/Pelvis CT 03/04/18 Short segment of ileal small bowel notable for mild concentric wall thickening which may reflect a focally ischemic segment following recent embolization for GI bleeding. Close clinical follow-up recommended. 03/05/2018 GI bleeding No obvious bleeding reported. Patient had 2 bowel movements this a.m., rashmi colored. States tolerating diet clear liquids without any nausea or vomiting. Hemoglobin 8.4 hematocrit 24.3 stable 03/06/2018 GI bleeding Patient denies any noted obvious bleeding. No BM today, states tolerating diabetic diet well, denies any nausea or vomiting. Hemoglobin 7.4 hematocrit 21.7 WBC 9.3 Bleeding scan--> Negative GI bleeding scan KUB--> 3 AP views of the abdomen and pelvis were obtained in demonstrate residual oral contrast in the colon. There are multiple loops of borderline dilated air containing small bowel in the central left abdomen measuring up to 4.5 cm. This is not significantly changed from the prior study. There is no evidence of free air on this supine study. Lung bases are clear. The bony structures remain intact. Plan -Cardiac diet -Monitor for bleeding -Monitor hemoglobin hematocrit -Notify GI for any active bleeding -Bowel regimen -Continue antibiotics -PPI -Encourage hydration and activity -Supportive care -Further recommendations to follow This patient has been seen by myself and Dr. Méndez and this note is written on her behalf - Attending Attestation Dr. Méndez <Cinthia Manley - Last Filed: 03/06/18 17:16> - Attending Attestation seen, examined agree with above <Loulou Méndez - Last Filed: 03/06/18 18:56>
[2018-03-06] MEDS: Acetaminophen 325 MG Tablet PO PRN (21:55)
[2018-03-06] MEDS: Temazepam 15 MG Capsule PO PRN (21:56)
[2018-03-07] MEDS: Ciprofloxacin 400 MG/200 ML 400 MG/200 ML PIGGYBACK IV.SIG SCH ×2 (01:58→13:19)
[2018-03-07] MEDS: Chlorhexidine Gluconate 2% 1 Pack (2 Cloths) TOPICAL SCH (03:16)
[2018-03-07] MEDS: Insulin NovoLOG Aspart Correctional Sugar Inj SQ SCH ×3 (07:18→18:05)
[2018-03-07 07:37] LABS: Baso # (Auto) 0.1 th/mm3 (0.0-0.2); Baso % (Auto) 0.6 % (0.0-2.0); Eos # (Auto) 0.2 th/mm3 (0.0-0.4); Hematocrit 30.7 % (39.0-51.0); Hemoglobin 10.5 gm/dL (13.0-17.0); Lymph # (Auto) 0.9 th/mm3 (1.0-4.8); Lymph % (Auto) 11.4 % (9.0-44.0); Mean Corpuscular Hemoglobin 29.2 pg (27.0-34.0); Mean Corpuscular Volume 85.9 fL (80.0-100.0); Mean Platelet Volume 8.2 fL (7.0-11.0); Mono # (Auto) 0.8 th/mm3 (0.0-0.9); Mono % (Auto) 9.6 % (0.0-8.0); Neut # (Auto) 6.1 th/mm3 (1.8-7.7); Neut % (Auto) 76.4 % (16.0-70.0); Platelet Count 297 th/mm3 (150-450); Red Blood Count 3.58 mil/mm3 (4.50-5.90); Red Cell Distribution Width 17.8 % (11.6-17.2); White Blood Count 7.9 th/mm3 (4.0-11.0)
[2018-03-07 07:47] LABS: Albumin 2.6 g/dL (3.4-5.0); Anion Gap 9 meq/L (5-15); Aspartate Aminotransferase 18 U/L (15-37); Blood Urea Nitrogen 11 mg/dL (7-18); Calcium 8.4 mg/dL (8.5-10.1); Carbon Dioxide 28.9 meq/L (21.0-32.0); Chloride 97 meq/L (98-107); Glomerular Filtration Rate 71 mL/min (>89); Glucose,Random 171 mg/dL (74-106); Potassium 3.4 meq/L (3.5-5.1); Sodium 135 meq/L (136-145)
[2018-03-07 07:50] LABS: Alanine Aminotransferase 23 U/L (12-78); Alkaline Phosphatase 71 U/L (45-117); Total Protein 6.9 g/dL (6.4-8.2)
[2018-03-07] MEDS: Tiotropium Bromide 18 MCG/ACT Inhaler INH SCH (09:10)
[2018-03-07] MEDS: Pantoprazole Inj 40 MG Vial IV.PUSH SCH (09:12)
[2018-03-07] MEDS: Senna/Docusate Sodium 8.6/50 MG Tablet PO SCH ×2 (09:12→22:22)
[2018-03-07] MEDS: amLODIPine 10 MG Tablet PO SCH (09:12)
[2018-03-07] MEDS: Levothyroxine 75 MCG Tablet PO SCH (09:12)
--- NOTE | 2018-03-07 14:54 | P.PNGI ---
Subjective Interval history: Patient in bedside chair at bedside Patient states that he has had 3 small BMs today, all of which have either have bright red or dark red blood in them Patient also reports gagging after eating lunch, states that he had cereal Denies any hematemesis or coffee-ground emesis Denies any nausea or vomiting at present Also had episode of diarrhea following gagging Patient continues to have right-sided abdominal pain, seems to have pinpoint tenderness <Bernadette Humphries - Last Filed: 03/07/18 14:46> Physical Exam Vital signs: Vital Signs 03/06/18 16:00 03/06/18 20:00 03/06/18 21:01 Temperature 98.6 F 98.1 F Pulse Rate 92 H 100 H Respiratory Rate 18 18 Blood Pressure 134/65 131/62 Pulse Oximetry 98 93 L 97 03/06/18 22:38 03/06/18 22:45 03/07/18 00:00 Temperature 98.4 F 98.1 F 98.2 F Pulse Rate 94 H 92 H 91 H Respiratory Rate 18 18 18 Blood Pressure 128/60 113/55 L 112/62 Pulse Oximetry 95 96 91 L 03/07/18 01:15 03/07/18 03:06 03/07/18 03:25 Temperature 98.0 F 97.9 F Pulse Rate 86 86 Respiratory Rate 18 18 18 Blood Pressure 118/53 L 150/68 H Pulse Oximetry 97 99 03/07/18 04:00 03/07/18 08:00 03/07/18 10:51 Temperature 97.7 F 98.4 F Pulse Rate 88 84 Respiratory Rate 18 20 Blood Pressure 137/60 142/64 H Pulse Oximetry 96 96 96 03/07/18 12:00 Temperature 97.9 F Pulse Rate 90 Respiratory Rate 22 Blood Pressure 148/68 H Pulse Oximetry 93 L Intake & Output 03/06/18 03/07/18 03/07/18 18:59 06:59 18:59 Intake Total 1300 / 1300 650 / 650 400 / 400 Output Total 750 / 750 1000 / 1000 Balance 550 / 550 -350 / -350 400 / 400 Weight 110 kg Intake: IV 300 / 300 300 / 300 400 / 400 Cipro 400 MG/200 ML Inj 400 mg 200 / 200 200 / 200 200 / 200 In 200 ml @ 200 mls/hr IV.SIG Q12H [facility] Rx#:[id number] Flagyl 500 MG Inj 100 ML @ 100 100 / 100 100 / 100 200 / 200 mls/hr IV.SIG Q8H [facility] Rx#: [id number] Oral 1000 / 1000 Intake (Blood Product) Amt 350 / 350 Rbc As-3 Leukoreduced Unit 350 / 350 [id number] Rbc As-3 Leukoreduced Unit 0 / 0 [id number] Output: Urine 750 / 750 1000 / 1000 Other: Date of Last Bowel Movement 03/05/18 03/05/18 03/07/18 # Bowel Movements 0 1 - Constitutional no acute distress Comments: hard of hearing - Routine HEENT Exam Head: Present: normocephalic, atraumatic - Routine Respiratory Exam Absent: accessory muscle use - Routine Abdominal Exam Present: soft, normoactive bowel sounds, tenderness (pinpoint tenderness to right lower quadrant abdomen ), distended - Routine Skin Exam Present: dry, warm - Routine Neurological Exam Present: alert, oriented X3 <Bernadette Humphries - Last Filed: 03/07/18 14:46> Vital signs: Vital Signs 03/06/18 20:00 03/06/18 21:01 03/06/18 22:38 Temperature 98.1 F 98.4 F Pulse Rate 100 H 94 H Respiratory Rate 18 18 Blood Pressure 131/62 128/60 Pulse Oximetry 93 L 97 95 03/06/18 22:45 03/07/18 00:00 03/07/18 01:15 Temperature 98.1 F 98.2 F Pulse Rate 92 H 91 H Respiratory Rate 18 18 18 Blood Pressure 113/55 L 112/62 Pulse Oximetry 96 91 L 03/07/18 03:06 03/07/18 03:25 03/07/18 04:00 Temperature 98.0 F 97.9 F 97.7 F Pulse Rate 86 86 88 Respiratory Rate 18 18 18 Blood Pressure 118/53 L 150/68 H 137/60 Pulse Oximetry 97 99 96 03/07/18 08:00 03/07/18 10:51 03/07/18 12:00 Temperature 98.4 F 97.9 F Pulse Rate 84 90 Respiratory Rate 20 22 Blood Pressure 142/64 H 148/68 H Pulse Oximetry 96 96 93 L 03/07/18 16:00 Temperature 99.1 F Pulse Rate 93 H Respiratory Rate 18 Blood Pressure 139/56 L Pulse Oximetry 98 Intake & Output 03/07/18 03/07/18 03/08/18 06:59 18:59 06:59 Intake Total 650 / 650 1400 / 1400 Output Total 1000 / 1000 Balance -350 / -350 1400 / 1400 Weight 110 kg Intake: IV 300 / 300 400 / 400 Cipro 400 MG/200 ML Inj 400 mg 200 / 200 200 / 200 In 200 ml @ 200 mls/hr IV.SIG Q12H [facility] Rx#:[id number] Flagyl 500 MG Inj 100 ML @ 100 100 / 100 200 / 200 mls/hr IV.SIG Q8H [facility] Rx#: [id number] Oral 1000 / 1000 Intake (Blood Product) Amt 350 / 350 Rbc As-3 Leukoreduced Unit 350 / 350 [id number] Rbc As-3 Leukoreduced Unit 0 / 0 [id number] Output: Urine 1000 / 1000 Other: # Voids 4 Date of Last Bowel Movement 03/05/18 03/07/18 # Bowel Movements 2 <Loulou Méndez - Last Filed: 03/07/18 19:37> Results - Labs CBC & Chem 7: 03/07/18 06:40 03/07/18 06:40 Laboratory Results - last 24 hr 03/06/18 03/06/18 03/06/18 17:33 18:30 23:40 WBC RBC Hgb Hct MCV MCH MCHC RDW Plt Count MPV Prelim Diff (Auto) Neut % (Auto) Lymph % (Auto) [place] % (Auto) Eos % (Auto) Baso % (Auto) Neut # (Auto) Lymph # (Auto) [place] # (Auto) Eos # (Auto) Baso # (Auto) WBC Differential Diff Scan Differential Comment Sodium Potassium Chloride Carbon Dioxide Anion Gap BUN Creatinine Estimated GFR POC Glucose 224 H 170 H Random Glucose Calcium Total Bilirubin AST ALT Alkaline Phosphatase Total Protein Albumin Blood Type A Positive Blood Type Recheck Not needed Antibody Screen Negative MTS Gel Crossmatch See Detail 03/07/18 03/07/18 03/07/18 06:40 06:40 07:16 WBC 7.9 RBC 3.58 L Hgb 10.5 L D Hct 30.7 L MCV 85.9 D MCH 29.2 MCHC 34.0 RDW 17.8 H D Plt Count 297 MPV 8.2 Prelim Diff (Auto) Slide review pending Neut % (Auto) 76.4 H Lymph % (Auto) 11.4 [place] % (Auto) 9.6 H Eos % (Auto) 2.0 Baso % (Auto) 0.6 Neut # (Auto) 6.1 Lymph # (Auto) 0.9 L [place] # (Auto) 0.8 Eos # (Auto) 0.2 Baso # (Auto) 0.1 WBC Differential . Diff Scan Auto diff confirmed Differential Comment . Sodium 135 L Potassium 3.4 L Chloride 97 L Carbon Dioxide 28.9 Anion Gap 9 BUN 11 Creatinine 1.03 Estimated GFR 71 L POC Glucose 211 H Random Glucose 171 H Calcium 8.4 L Total Bilirubin 1.5 H AST 18 ALT 23 Alkaline Phosphatase 71 Total Protein 6.9 Albumin 2.6 L Blood Type Blood Type Recheck Antibody Screen MTS Gel Crossmatch 03/07/18 11:30 WBC RBC Hgb Hct MCV MCH MCHC RDW Plt Count MPV Prelim Diff (Auto) Neut % (Auto) Lymph % (Auto) [place] % (Auto) Eos % (Auto) Baso % (Auto) Neut # (Auto) Lymph # (Auto) [place] # (Auto) Eos # (Auto) Baso # (Auto) WBC Differential Diff Scan Differential Comment Sodium Potassium Chloride Carbon Dioxide Anion Gap BUN Creatinine Estimated GFR POC Glucose 177 H Random Glucose Calcium Total Bilirubin AST ALT Alkaline Phosphatase Total Protein Albumin Blood Type Blood Type Recheck Antibody Screen MTS Gel Crossmatch - Imaging Impressions Abdomen X-Ray 03/06/18 00:00 CONCLUSION: No significant change in the nonspecific bowel gas pattern. GI Bleed Scan Nuclear Medicine 03/06/18 00:00 CONCLUSION: 1. Negative GI bleeding scan - Procedures s/p mesenteric angiogram with embolization SMA 03/02/18 <Bernadette Humphries - Last Filed: 03/07/18 14:46> - Labs CBC & Chem 7: 03/07/18 16:07 03/07/18 06:40 Laboratory Results - last 24 hr 03/06/18 03/06/18 03/07/18 18:30 23:40 06:40 WBC 7.9 RBC 3.58 L Hgb 10.5 L D Hct 30.7 L MCV 85.9 D MCH 29.2 MCHC 34.0 RDW 17.8 H D Plt Count 297 MPV 8.2 Prelim Diff (Auto) Slide review pending Neut % (Auto) 76.4 H Lymph % (Auto) 11.4 [place] % (Auto) 9.6 H Eos % (Auto) 2.0 Baso % (Auto) 0.6 Neut # (Auto) 6.1 Lymph # (Auto) 0.9 L [place] # (Auto) 0.8 Eos # (Auto) 0.2 Baso # (Auto) 0.1 WBC Differential . Diff Scan Auto diff confirmed Differential Comment . Sodium Potassium Chloride Carbon Dioxide Anion Gap BUN Creatinine Estimated GFR POC Glucose 170 H Random Glucose Calcium Total Bilirubin AST ALT Alkaline Phosphatase Total Protein Albumin Blood Type A Positive Blood Type Recheck Not needed Antibody Screen Negative MTS Gel Crossmatch See Detail 03/07/18 03/07/18 03/07/18 06:40 07:16 11:30 WBC RBC Hgb Hct MCV MCH MCHC RDW Plt Count MPV Prelim Diff (Auto) Neut % (Auto) Lymph % (Auto) [place] % (Auto) Eos % (Auto) Baso % (Auto) Neut # (Auto) Lymph # (Auto) [place] # (Auto) Eos # (Auto) Baso # (Auto) WBC Differential Diff Scan Differential Comment Sodium 135 L Potassium 3.4 L Chloride 97 L Carbon Dioxide 28.9 Anion Gap 9 BUN 11 Creatinine 1.03 Estimated GFR 71 L POC Glucose 211 H 177 H Random Glucose 171 H Calcium 8.4 L Total Bilirubin 1.5 H AST 18 ALT 23 Alkaline Phosphatase 71 Total Protein 6.9 Albumin 2.6 L Blood Type Blood Type Recheck Antibody Screen MTS Gel Crossmatch 03/07/18 03/07/18 16:07 17:23 WBC RBC Hgb 10.5 L Hct 29.9 L MCV MCH MCHC RDW Plt Count MPV Prelim Diff (Auto) Neut % (Auto) Lymph % (Auto) [place] % (Auto) Eos % (Auto) Baso % (Auto) Neut # (Auto) Lymph # (Auto) [place] # (Auto) Eos # (Auto) Baso # (Auto) WBC Differential Diff Scan Differential Comment Sodium Potassium Chloride Carbon Dioxide Anion Gap BUN Creatinine Estimated GFR POC Glucose 155 H Random Glucose Calcium Total Bilirubin AST ALT Alkaline Phosphatase Total Protein Albumin Blood Type Blood Type Recheck Antibody Screen MTS Gel Crossmatch - Imaging Impressions Abdomen X-Ray 03/07/18 00:00 CONCLUSION: 1. Stable bowel gas pattern most consistent with adynamic ileus. 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 Rebled, repeat colonoscopy done 03/01 --> Acute clot S/P epi and clipped, despite this pt continued to bleed, was transferred to [place] for IR Angiogram with subselective embolization of a small abnormal vessel in the region of the terminal ileum (03/02) patent celiac and MAGGIE. SMA revealed possible bleed at the terminal ileum. Gelfoam and 1 mm coil embolization was performed. At the conclusion of procedure there was no residual flow evident. Abdomen/Pelvis CT 03/04/18 --> Short segment of ileal small bowel notable for mild concentric wall thickening which may reflect a focally ischemic segment following recent embolization for GI bleeding. NM bleeding scan (03/06) Negative exam (03/07) Pts hgb trended down to 7.4 yesterday, received 2 U PRBCs. Pt reports 3 BMs today, states seemed to have bright red and dark blood in them. States very small BMs. GS following. Pt also reports an episode of gagging after lunch. Denies any nausea or vomiting at present. Did have EGD done on 02/22 with findings of gastritis and duodenitis. Biopsies benign. Plan: Appreciate GS input Serial H/H Protonix Cipro/Flagyl Antiemetics PRN Pain control Further recommendations based on clinical course This patient has been seen and examined by myself and Dr. Méndez and this note is written on her behalf <Bernadette Humphries - Last Filed: 03/07/18 14:46> - Attending Attestation seen, examined agree with above <Loulou Méndez - Last Filed: 03/07/18 19:37>
--- NOTE | 2018-03-07 15:13 | P.PNIM ---
Subjective Interval history: Blood counts have improved with transfusion. Patient still reports GI bleeding. Patient reports abdominal distention and nausea. Physical Exam Vital signs: Vital Signs 03/06/18 16:00 03/06/18 20:00 03/06/18 21:01 Temperature 98.6 F 98.1 F Pulse Rate 92 H 100 H Respiratory Rate 18 18 Blood Pressure 134/65 131/62 Pulse Oximetry 98 93 L 97 03/06/18 22:38 03/06/18 22:45 03/07/18 00:00 Temperature 98.4 F 98.1 F 98.2 F Pulse Rate 94 H 92 H 91 H Respiratory Rate 18 18 18 Blood Pressure 128/60 113/55 L 112/62 Pulse Oximetry 95 96 91 L 03/07/18 01:15 03/07/18 03:06 03/07/18 03:25 Temperature 98.0 F 97.9 F Pulse Rate 86 86 Respiratory Rate 18 18 18 Blood Pressure 118/53 L 150/68 H Pulse Oximetry 97 99 03/07/18 04:00 03/07/18 08:00 03/07/18 10:51 Temperature 97.7 F 98.4 F Pulse Rate 88 84 Respiratory Rate 18 20 Blood Pressure 137/60 142/64 H Pulse Oximetry 96 96 96 03/07/18 12:00 Temperature 97.9 F Pulse Rate 90 Respiratory Rate 22 Blood Pressure 148/68 H Pulse Oximetry 93 L Intake & Output 03/06/18 03/07/18 03/07/18 18:59 06:59 18:59 Intake Total 1300 / 1300 650 / 650 400 / 400 Output Total 750 / 750 1000 / 1000 Balance 550 / 550 -350 / -350 400 / 400 Weight 110 kg Intake: IV 300 / 300 300 / 300 400 / 400 Cipro 400 MG/200 ML Inj 400 mg 200 / 200 200 / 200 200 / 200 In 200 ml @ 200 mls/hr IV.SIG Q12H [facility] Rx#:[id number] Flagyl 500 MG Inj 100 ML @ 100 100 / 100 100 / 100 200 / 200 mls/hr IV.SIG Q8H [facility] Rx#: [id number] Oral 1000 / 1000 Intake (Blood Product) Amt 350 / 350 Rbc As-3 Leukoreduced Unit 350 / 350 [id number] Rbc As-3 Leukoreduced Unit 0 / 0 [id number] Output: Urine 750 / 750 1000 / 1000 Other: Date of Last Bowel Movement 03/05/18 03/05/18 03/07/18 # Bowel Movements 0 1 Narrative: GENERAL: NAD, A&Ox3 HEAD: Normocephalic. NECK: Supple, trachea midline. No lymphadenopathy. EYES: No scleral icterus. No injection or drainage. CARDIOVASCULAR: Regular rate and rhythm without murmurs, gallops, or rubs. RESPIRATORY: Breath sounds equal bilaterally. No accessory muscle use. GASTROINTESTINAL: Abdomen soft, non-tender, mild abdominal distention without hypertympany MUSCULOSKELETAL: No cyanosis, or edema. SKIN: Warm and dry. NEURO: No focal neurological deficits. Results - Labs CBC & Chem 7: 03/07/18 06:40 03/07/18 06:40 Laboratory Results - last 24 hr 03/06/18 03/06/18 03/06/18 17:33 18:30 23:40 WBC RBC Hgb Hct MCV MCH MCHC RDW Plt Count MPV Prelim Diff (Auto) Neut % (Auto) Lymph % (Auto) [place] % (Auto) Eos % (Auto) Baso % (Auto) Neut # (Auto) Lymph # (Auto) [place] # (Auto) Eos # (Auto) Baso # (Auto) WBC Differential Diff Scan Differential Comment Sodium Potassium Chloride Carbon Dioxide Anion Gap BUN Creatinine Estimated GFR POC Glucose 224 H 170 H Random Glucose Calcium Total Bilirubin AST ALT Alkaline Phosphatase Total Protein Albumin Blood Type A Positive Blood Type Recheck Not needed Antibody Screen Negative MTS Gel Crossmatch See Detail 03/07/18 03/07/18 03/07/18 06:40 06:40 07:16 WBC 7.9 RBC 3.58 L Hgb 10.5 L D Hct 30.7 L MCV 85.9 D MCH 29.2 MCHC 34.0 RDW 17.8 H D Plt Count 297 MPV 8.2 Prelim Diff (Auto) Slide review pending Neut % (Auto) 76.4 H Lymph % (Auto) 11.4 [place] % (Auto) 9.6 H Eos % (Auto) 2.0 Baso % (Auto) 0.6 Neut # (Auto) 6.1 Lymph # (Auto) 0.9 L [place] # (Auto) 0.8 Eos # (Auto) 0.2 Baso # (Auto) 0.1 WBC Differential . Diff Scan Auto diff confirmed Differential Comment . Sodium 135 L Potassium 3.4 L Chloride 97 L Carbon Dioxide 28.9 Anion Gap 9 BUN 11 Creatinine 1.03 Estimated GFR 71 L POC Glucose 211 H Random Glucose 171 H Calcium 8.4 L Total Bilirubin 1.5 H AST 18 ALT 23 Alkaline Phosphatase 71 Total Protein 6.9 Albumin 2.6 L Blood Type Blood Type Recheck Antibody Screen MTS Gel Crossmatch 03/07/18 11:30 WBC RBC Hgb Hct MCV MCH MCHC RDW Plt Count MPV Prelim Diff (Auto) Neut % (Auto) Lymph % (Auto) [place] % (Auto) Eos % (Auto) Baso % (Auto) Neut # (Auto) Lymph # (Auto) [place] # (Auto) Eos # (Auto) Baso # (Auto) WBC Differential Diff Scan Differential Comment Sodium Potassium Chloride Carbon Dioxide Anion Gap BUN Creatinine Estimated GFR POC Glucose 177 H Random Glucose Calcium Total Bilirubin AST ALT Alkaline Phosphatase Total Protein Albumin Blood Type Blood Type Recheck Antibody Screen MTS Gel Crossmatch - Imaging Impressions Abdomen X-Ray 03/06/18 00:00 CONCLUSION: No significant change in the nonspecific bowel gas pattern. GI Bleed Scan Nuclear Medicine 03/06/18 00:00 CONCLUSION: 1. Negative GI bleeding scan - Procedures s/p mesenteric angiogram with embolization SMA 03/02/18 Assessment and Plan - Plan 72-year-old man admitted secondary to GI bleed Bleeding still present. Hemoglobin improved status post transfusion. Continue monitoring CBC. Abdominal x-ray to screen distention. PRN Zofran for nausea. Acute GI bleed [place] acute blood loss anemia AVM of terminal ileum Internal hemorrhoid Bleeding still appears to be present intermittently Status post embolization of SMA on 03/02/2018 Continue PPI GI following Continue monitoring CBC Abdominal pain May be secondary to ileus versus irritation from blood Improving Monitor bowel habits Monitor bowel sounds Obstructive sleep apnea History of pulmonary fibrosis Continue oxygen Continue breathing treatments as needed Follow clinically Diabetes mellitus type 2 Follow blood sugars Insulin sliding scale Diabetic diet Hypothyroidism Continue levothyroxine Hypertension Continue baseline treatment Follow blood pressures Adjust treatments as needed Reintroduced baseline treatments today As needed clonidine As needed IV enalapril DVT Prophylaxis SCDs
--- NOTE | 2018-03-07 15:29 | P.PNGS ---
Subjective Patient reports: feels better, flatus, bowel movement Interval history: DAILY PROGRESS NOTE FOR SURGICAL ATTENDING, DR. TAN FERMIN Patient sitting up in a chair at bedside Had a bowel movement Tolerating some p.o. Physical Exam Vital signs: Vital Signs 03/06/18 16:00 03/06/18 20:00 03/06/18 21:01 Temperature 98.6 F 98.1 F Pulse Rate 92 H 100 H Respiratory Rate 18 18 Blood Pressure 134/65 131/62 Pulse Oximetry 98 93 L 97 03/06/18 22:38 03/06/18 22:45 03/07/18 00:00 Temperature 98.4 F 98.1 F 98.2 F Pulse Rate 94 H 92 H 91 H Respiratory Rate 18 18 18 Blood Pressure 128/60 113/55 L 112/62 Pulse Oximetry 95 96 91 L 03/07/18 01:15 03/07/18 03:06 03/07/18 03:25 Temperature 98.0 F 97.9 F Pulse Rate 86 86 Respiratory Rate 18 18 18 Blood Pressure 118/53 L 150/68 H Pulse Oximetry 97 99 03/07/18 04:00 03/07/18 08:00 03/07/18 10:51 Temperature 97.7 F 98.4 F Pulse Rate 88 84 Respiratory Rate 18 20 Blood Pressure 137/60 142/64 H Pulse Oximetry 96 96 96 03/07/18 12:00 Temperature 97.9 F Pulse Rate 90 Respiratory Rate 22 Blood Pressure 148/68 H Pulse Oximetry 93 L Intake & Output 03/06/18 03/07/18 03/07/18 18:59 06:59 18:59 Intake Total 1300 / 1300 650 / 650 400 / 400 Output Total 750 / 750 1000 / 1000 Balance 550 / 550 -350 / -350 400 / 400 Weight 110 kg Intake: IV 300 / 300 300 / 300 400 / 400 Cipro 400 MG/200 ML Inj 400 mg 200 / 200 200 / 200 200 / 200 In 200 ml @ 200 mls/hr IV.SIG Q12H [facility] Rx#:[id number] Flagyl 500 MG Inj 100 ML @ 100 100 / 100 100 / 100 200 / 200 mls/hr IV.SIG Q8H [facility] Rx#: [id number] Oral 1000 / 1000 Intake (Blood Product) Amt 350 / 350 Rbc As-3 Leukoreduced Unit 350 / 350 [id number] Rbc As-3 Leukoreduced Unit 0 / 0 [id number] Output: Urine 750 / 750 1000 / 1000 Other: Date of Last Bowel Movement 03/05/18 03/05/18 03/07/18 # Bowel Movements 0 1 Narrative: GENERAL: NAD, A&Ox3 HEAD: Normocephalic. Abdomen slightly distended still some pinpoint tenderness at the right upper quadrant no rebound or guarding Ambulating in hallways Results - Labs 03/07/18 06:40 03/07/18 06:40 Vital Signs 03/06/18 16:00 03/06/18 20:00 03/06/18 21:01 Temperature 98.6 F 98.1 F Pulse Rate 92 H 100 H Respiratory Rate 18 18 Blood Pressure 134/65 131/62 Pulse Oximetry 98 93 L 97 03/06/18 22:38 03/06/18 22:45 03/07/18 00:00 Temperature 98.4 F 98.1 F 98.2 F Pulse Rate 94 H 92 H 91 H Respiratory Rate 18 18 18 Blood Pressure 128/60 113/55 L 112/62 Pulse Oximetry 95 96 91 L 03/07/18 01:15 03/07/18 03:06 03/07/18 03:25 Temperature 98.0 F 97.9 F Pulse Rate 86 86 Respiratory Rate 18 18 18 Blood Pressure 118/53 L 150/68 H Pulse Oximetry 97 99 03/07/18 04:00 03/07/18 08:00 03/07/18 10:51 Temperature 97.7 F 98.4 F Pulse Rate 88 84 Respiratory Rate 18 20 Blood Pressure 137/60 142/64 H Pulse Oximetry 96 96 96 03/07/18 12:00 Temperature 97.9 F Pulse Rate 90 Respiratory Rate 22 Blood Pressure 148/68 H Pulse Oximetry 93 L Intake & Output 03/06/18 03/07/18 03/07/18 18:59 06:59 18:59 Intake Total 1300 / 1300 650 / 650 400 / 400 Output Total 750 / 750 1000 / 1000 Balance 550 / 550 -350 / -350 400 / 400 Weight 110 kg Intake: IV 300 / 300 300 / 300 400 / 400 Cipro 400 MG/200 ML Inj 400 mg 200 / 200 200 / 200 200 / 200 In 200 ml @ 200 mls/hr IV.SIG Q12H [facility] Rx#:[id number] Flagyl 500 MG Inj 100 ML @ 100 100 / 100 100 / 100 200 / 200 mls/hr IV.SIG Q8H [facility] Rx#: [id number] Oral 1000 / 1000 Intake (Blood Product) Amt 350 / 350 Rbc As-3 Leukoreduced Unit 350 / 350 [id number] Rbc As-3 Leukoreduced Unit 0 / 0 [id number] Output: Urine 750 / 750 1000 / 1000 Other: Date of Last Bowel Movement 03/05/18 03/05/18 03/07/18 # Bowel Movements 0 1 - Imaging Imaging: ITS Impressions Mesenteric Arteriogram 03/02/18 00:00 CONCLUSION: 1. Subselective embolization of a small abnormal vessel in the region of the TI. The patient tolerated the procedure well. Chest X-Ray 03/03/18 08:08 CONCLUSION: 1. Pulmonary vascular congestion. 2. Mildly prominent cardiac silhouette. 3. Small left pleural effusion. Abdomen/Pelvis CT 03/04/18 00:00 CONCLUSION: Short segment of ileal small bowel notable for mild concentric wall thickening which may reflect a focally ischemic segment following recent embolization for GI bleeding. Close clinical follow-up recommended. Venous Doppler Study 03/04/18 13:17 CONCLUSION: The study is negative for upper extremity deep venous thrombosis. Abdomen X-Ray 03/06/18 00:00 CONCLUSION: No significant change in the nonspecific bowel gas pattern. GI Bleed Scan Nuclear Medicine 03/06/18 00:00 CONCLUSION: 1. 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 - Arteriovenous malformation of digestive system vessel Status : Acute (2) Lower GI bleed Code(s): K92.2 - Gastrointestinal hemorrhage, unspecified Status: Acute (3) Abdominal discomfort in right upper quadrant Code(s): R10.11 - Right upper quadrant pain Status: Acute - Plan 72 year old male with LGIB; s/p embolization of AV malformation in the ileum Bleeding scan negative Received some blood transfusion -Pain improved some more today -stable -Clear liquids -Will continue to monitor Overall patient improved Sitting up in the chair Still has some almost pinpoint tenderness in the right side of his abdomen minimal to no tenderness in the left side now Continue current current conservative management - Attending Attestation NOTE FOR SURGICAL ATTENDING, DR. TAN FERMIN I attest that I had a [id number] encounter with the patient on the same day, and personally performed and documented my assessment and findings in the medical record. The following services were provided during this hospital visit: Chart data review, vital sign assessments/reviewing monitor data Review of consultations notes if present. Medication orders/review and/or management Ordering and/or reviewing lab tests Ordering and/or interpreting/reviewing x-rays and/or diagnostic studies Care of the patient and discussion of the patient with the care team Documentation time To help prompt me to consider important information that might be impacting today's encounter and assessment, Information from prior notes written by myself or my colleagues may have been "brought forward/copy and pasted" into today's note.
--- NOTE | 2018-03-07 15:53 | XR ---
EXAM DATE: 03/07/2018 3:49 PM EST AGE/SEX: 72 years / Male INDICATIONS: Distention. CLINICAL DATA: This is the patient's subsequent encounter. Patient reports that signs and symptoms h ave been present for 2 days and indicates a pain score of 4/10. MEDICAL/SURGICAL HISTORY: Gastrointestinal bleed. None. COMPARISON: [facility] – [place] [facility], 03/06/2018. . FINDINGS: Redemonstration of multiple loops of distended small bowel throughout the abdomen. Contrast is seen throughout the colon extending to the rectum. No gross pneumatosis or free air. Remainder of the exam is unchanged. CONCLUSION: 1. Stable bowel gas pattern most consistent with adynamic ileus. Electronically signed by: Néstor Scott MD 03/07/2018 3:52 PM EST
[2018-03-07 16:38] LABS: Hematocrit 29.9 % (39.0-51.0); Hemoglobin 10.5 gm/dL (13.0-17.0)
[2018-03-07 21:47] LABS: Hematocrit 29.5 % (39.0-51.0); Hemoglobin 10.4 gm/dL (13.0-17.0)
[2018-03-07] MEDS: Temazepam 15 MG Capsule PO PRN (22:21)
[2018-03-07] MEDS: Acetaminophen 325 MG Tablet PO PRN (22:21)
[2018-03-08] MEDS: Insulin NovoLOG Aspart Correctional Sugar Inj SQ SCH ×4 (01:41→22:02)
[2018-03-08] MEDS: Ciprofloxacin 400 MG/200 ML 400 MG/200 ML PIGGYBACK IV.SIG SCH ×2 (01:41→14:14)
[2018-03-08 03:56] LABS: Hematocrit 30.7 % (39.0-51.0); Hemoglobin 10.7 gm/dL (13.0-17.0)
[2018-03-08 03:58] LABS: Baso # (Auto) 0.1 th/mm3 (0.0-0.2); Baso % (Auto) 0.7 % (0.0-2.0); Eos # (Auto) 0.2 th/mm3 (0.0-0.4); Eos % (Auto) 2.5 % (0.0-4.0); Hematocrit 29.8 % (39.0-51.0); Hemoglobin 10.6 gm/dL (13.0-17.0); Lymph # (Auto) 1.3 th/mm3 (1.0-4.8); Lymph % (Auto) 15.5 % (9.0-44.0); Mean Corpuscular HGB Conc 35.6 % (32.0-36.0); Mean Corpuscular Hemoglobin 29.9 pg (27.0-34.0); Mean Platelet Volume 7.6 fL (7.0-11.0); Mono # (Auto) 0.9 th/mm3 (0.0-0.9); Mono % (Auto) 10.8 % (0.0-8.0); Neut % (Auto) 70.5 % (16.0-70.0); Platelet Count 356 th/mm3 (150-450); Red Blood Count 3.55 mil/mm3 (4.50-5.90); Red Cell Distribution Width 18.1 % (11.6-17.2); White Blood Count 8.5 th/mm3 (4.0-11.0)
[2018-03-08 04:26] LABS: Alanine Aminotransferase 23 U/L (12-78); Albumin 2.7 g/dL (3.4-5.0); Anion Gap 10 meq/L (5-15); Aspartate Aminotransferase 15 U/L (15-37); Blood Urea Nitrogen 10 mg/dL (7-18); Calcium 8.7 mg/dL (8.5-10.1); Carbon Dioxide 27.9 meq/L (21.0-32.0); Chloride 98 meq/L (98-107); Glomerular Filtration Rate 63 mL/min (>89); Glucose,Random 165 mg/dL (74-106); Potassium 3.7 meq/L (3.5-5.1); Sodium 136 meq/L (136-145)
[2018-03-08 04:29] LABS: Alkaline Phosphatase 74 U/L (45-117); Total Protein 7.3 g/dL (6.4-8.2)
[2018-03-08] MEDS: Levothyroxine 75 MCG Tablet PO SCH (09:53)
[2018-03-08] MEDS: Pantoprazole Inj 40 MG Vial IV.PUSH SCH (09:53)
[2018-03-08] MEDS: amLODIPine 10 MG Tablet PO SCH (09:54)
[2018-03-08] MEDS: Senna/Docusate Sodium 8.6/50 MG Tablet PO SCH ×2 (09:54→21:57)
[2018-03-08] MEDS: Tiotropium Bromide 18 MCG/ACT Inhaler INH SCH (09:54)
--- NOTE | 2018-03-08 14:09 | P.PNIM ---
Subjective Interval history: Hgb has been relatively stable over last 24 hours. Some blood in stool reported by patient. Abdominal Pain improving. Physical Exam Vital signs: Vital Signs 03/07/18 16:00 03/07/18 20:00 03/08/18 00:00 Temperature 99.1 F 98.4 F 98.1 F Pulse Rate 93 H 96 H 86 Respiratory Rate 18 20 18 Blood Pressure 139/56 L 138/68 107/54 L Pulse Oximetry 98 94 L 93 L 03/08/18 04:00 03/08/18 08:00 03/08/18 08:02 Temperature 98.2 F 98.0 F Pulse Rate 87 85 Respiratory Rate 18 18 Blood Pressure 129/61 156/67 H Pulse Oximetry 93 L 95 94 L 03/08/18 12:00 Temperature 98.1 F Pulse Rate 87 Respiratory Rate 20 Blood Pressure 143/63 H Pulse Oximetry 96 Intake & Output 03/07/18 03/08/18 03/08/18 18:59 06:59 18:59 Intake Total 1400 / 1400 400 / 400 Output Total 500 / 500 Balance 1400 / 1400 -100 / -100 Intake: IV 400 / 400 400 / 400 Cipro 400 MG/200 ML Inj 400 mg 200 / 200 200 / 200 In 200 ml @ 200 mls/hr IV.SIG Q12H CRISTY Rx#:[id number] Flagyl 500 MG Inj 100 ML @ 100 200 / 200 200 / 200 mls/hr IV.SIG Q8H CRISTY Rx#: [id number] Oral 1000 / 1000 Output: Urine 500 / 500 Other: # Voids 4 Date of Last Bowel Movement 03/07/18 03/07/18 03/08/18 # Bowel Movements 2 Narrative: GENERAL: NAD, A&Ox3 HEAD: Normocephalic. NECK: Supple, trachea midline. No lymphadenopathy. EYES: No scleral icterus. No injection or drainage. CARDIOVASCULAR: Regular rate and rhythm without murmurs, gallops, or rubs. RESPIRATORY: Breath sounds equal bilaterally. No accessory muscle use. GASTROINTESTINAL: Abdomen soft, non-tender, nondistended. MUSCULOSKELETAL: No cyanosis, or edema. SKIN: Warm and dry. NEURO: No focal neurological deficits. Results - Labs CBC & Chem 7: 03/08/18 03:46 03/08/18 03:46 Laboratory Results - last 24 hr 03/07/18 03/07/18 03/07/18 16:07 17:23 21:15 WBC RBC Hgb 10.5 L 10.4 L Hct 29.9 L 29.5 L MCV MCH MCHC RDW Plt Count MPV Neut % (Auto) Lymph % (Auto) [place] % (Auto) Eos % (Auto) Baso % (Auto) Neut # (Auto) Lymph # (Auto) [place] # (Auto) Eos # (Auto) Baso # (Auto) WBC Differential Differential Comment Sodium Potassium Chloride Carbon Dioxide Anion Gap BUN Creatinine Estimated GFR POC Glucose 155 H Random Glucose Calcium Total Bilirubin AST ALT Alkaline Phosphatase Total Protein Albumin 03/08/18 03/08/18 03/08/18 01:38 03:46 03:46 WBC 8.5 RBC 3.55 L Hgb 10.7 L 10.6 L Hct 30.7 L 29.8 L MCV 84.0 MCH 29.9 MCHC 35.6 RDW 18.1 H Plt Count 356 MPV 7.6 Neut % (Auto) 70.5 H Lymph % (Auto) 15.5 [place] % (Auto) 10.8 H Eos % (Auto) 2.5 Baso % (Auto) 0.7 Neut # (Auto) 6.0 Lymph # (Auto) 1.3 [place] # (Auto) 0.9 Eos # (Auto) 0.2 Baso # (Auto) 0.1 WBC Differential . Differential Comment Auto diff final Sodium Potassium Chloride Carbon Dioxide Anion Gap BUN Creatinine Estimated GFR POC Glucose 169 H Random Glucose Calcium Total Bilirubin AST ALT Alkaline Phosphatase Total Protein Albumin 03/08/18 03/08/18 03/08/18 03:46 05:24 13:06 WBC RBC Hgb Hct MCV MCH MCHC RDW Plt Count MPV Neut % (Auto) Lymph % (Auto) [place] % (Auto) Eos % (Auto) Baso % (Auto) Neut # (Auto) Lymph # (Auto) [place] # (Auto) Eos # (Auto) Baso # (Auto) WBC Differential Differential Comment Sodium 136 Potassium 3.7 Chloride 98 Carbon Dioxide 27.9 Anion Gap 10 BUN 10 Creatinine 1.14 Estimated GFR 63 L POC Glucose 155 H 215 H Random Glucose 165 H Calcium 8.7 Total Bilirubin 0.4 AST 15 ALT 23 Alkaline Phosphatase 74 Total Protein 7.3 Albumin 2.7 L - Imaging Impressions Abdomen X-Ray 03/07/18 00:00 CONCLUSION: 1. Stable bowel gas pattern most consistent with adynamic ileus. - Procedures s/p mesenteric angiogram with embolization SMA 03/02/18 Assessment and Plan - Plan 72-year-old man admitted secondary to GI bleed Hgb level is stable over last 24 hours. Continue to follow CBC. Due to severity of prior bleed(s), if CBC stable for 72 hours, will consider DC. Acute GI bleed [place] acute blood loss anemia AVM of terminal ileum Internal hemorrhoid Bleeding still appears to be present intermittently Status post embolization of SMA on 03/02/2018 Continue PPI GI following Continue monitoring CBC Abdominal pain May be secondary to ileus versus irritation from blood Improving Monitor bowel habits Monitor bowel sounds Obstructive sleep apnea History of pulmonary fibrosis Continue oxygen Continue breathing treatments as needed Follow clinically Diabetes mellitus type 2 Follow blood sugars Insulin sliding scale Diabetic diet Hypothyroidism Continue levothyroxine Hypertension Continue baseline treatment Follow blood pressures Adjust treatments as needed Reintroduced baseline treatments today As needed clonidine As needed IV enalapril DVT Prophylaxis SCDs
--- NOTE | 2018-03-08 14:09 | P.PNGS ---
Subjective Interval history: DAILY PROGRESS NOTE FOR SURGICAL ATTENDING, DR. TAN FERMIN Up to chair Feeling better; Would like to take a shower Physical Exam Vital signs: Vital Signs 03/07/18 16:00 03/07/18 20:00 03/08/18 00:00 Temperature 99.1 F 98.4 F 98.1 F Pulse Rate 93 H 96 H 86 Respiratory Rate 18 20 18 Blood Pressure 139/56 L 138/68 107/54 L Pulse Oximetry 98 94 L 93 L 03/08/18 04:00 03/08/18 08:00 03/08/18 08:02 Temperature 98.2 F 98.0 F Pulse Rate 87 85 Respiratory Rate 18 18 Blood Pressure 129/61 156/67 H Pulse Oximetry 93 L 95 94 L 03/08/18 12:00 Temperature 98.1 F Pulse Rate 87 Respiratory Rate 20 Blood Pressure 143/63 H Pulse Oximetry 96 Intake & Output 03/07/18 03/08/18 03/08/18 18:59 06:59 18:59 Intake Total 1400 / 1400 400 / 400 Output Total 500 / 500 Balance 1400 / 1400 -100 / -100 Intake: IV 400 / 400 400 / 400 Cipro 400 MG/200 ML Inj 400 mg 200 / 200 200 / 200 In 200 ml @ 200 mls/hr IV.SIG Q12H C[facility]STY Rx#:[id number] Flagyl 500 MG Inj 100 ML @ 100 200 / 200 200 / 200 mls/hr IV.SIG Q8H CRISTY Rx#: [id number] Oral 1000 / 1000 Output: Urine 500 / 500 Other: # Voids 4 Date of Last Bowel Movement 03/07/18 03/07/18 03/08/18 # Bowel Movements 2 Narrative: Alert and awake Sitting up in the chair Abd: distended although better; non tender Results - Labs 03/08/18 03:46 03/08/18 03:46 Laboratory Last Values WBC 8.5 th/mm3 (4.0-11.0) 03/08/18 03:46 RBC 3.55 mil/mm3 (4.50-5.90) L 03/08/18 03:46 Hgb 10.7 gm/dL (13.0-17.0) L 03/08/18 03:46 Hct 30.7 % (39.0-51.0) L 03/08/18 03:46 MCV 84.0 fL (80.0-100.0) 03/08/18 03:46 MCH 29.9 pg (27.0-34.0) 03/08/18 03:46 MCHC 35.6 % (32.0-36.0) 03/08/18 03:46 RDW 18.1 % (11.6-17.2) H 03/08/18 03:46 Plt Count 356 th/mm3 (150-450) 03/08/18 03:46 MPV 7.6 fL (7.0-11.0) 03/08/18 03:46 Prelim Diff (Auto) Slide review pending 03/07/18 06:40 Neut % (Auto) 70.5 % (16.0-70.0) H 03/08/18 03:46 Lymph % (Auto) 15.5 % (9.0-44.0) 03/08/18 03:46 [place] % (Auto) 10.8 % (0.0-8.0) H 03/08/18 03:46 Eos % (Auto) 2.5 % (0.0-4.0) 03/08/18 03:46 Baso % (Auto) 0.7 % (0.0-2.0) 03/08/18 03:46 Neut # (Auto) 6.0 th/mm3 (1.8-7.7) 03/08/18 03:46 Lymph # (Auto) 1.3 th/mm3 (1.0-4.8) 03/08/18 03:46 [place] # (Auto) 0.9 th/mm3 (0.0-0.9) 03/08/18 03:46 Eos # (Auto) 0.2 th/mm3 (0.0-0.4) 03/08/18 03:46 Baso # (Auto) 0.1 th/mm3 (0.0-0.2) 03/08/18 03:46 WBC Differential . 03/08/18 03:46 Diff Scan Auto diff confirmed 03/07/18 06:40 Differential Comment Auto diff final 03/08/18 03:46 PT 10.4 sec (9.8-11.6) 03/03/18 03:32 INR 1.0 Ratio 03/03/18 03:32 APTT 26.3 sec (23.4-31.7) 03/03/18 03:32 Sodium 136 meq/L (136-145) 03/08/18 03:46 Potassium 3.7 meq/L (3.5-5.1) 03/08/18 03:46 Chloride 98 meq/L (98-107) 03/08/18 03:46 Carbon Dioxide 27.9 meq/L (21.0-32.0) 03/08/18 03:46 Anion Gap 10 meq/L (5-15) 03/08/18 03:46 BUN 10 mg/dL (7-18) 03/08/18 03:46 Creatinine 1.14 mg/dL (0.60-1.30) 03/08/18 03:46 Estimated GFR 63 mL/min (>89) L 03/08/18 03:46 POC Glucose 145 mg/dl (68-110) H 03/08/18 17:14 Random Glucose 165 mg/dL (74-106) H 03/08/18 03:46 Lactic Acid 0.8 mmol/L (0.4-2.0) 03/03/18 03:32 Calcium 8.7 mg/dL (8.5-10.1) 03/08/18 03:46 Phosphorus 2.7 mg/dL (2.5-4.9) 03/04/18 04:01 Magnesium 2.1 mg/dL (1.5-2.5) 03/04/18 04:01 Total Bilirubin 0.4 mg/dL (0.2-1.0) 03/08/18 03:46 AST 15 U/L (15-37) 03/08/18 03:46 ALT 23 U/L (12-78) 03/08/18 03:46 Alkaline Phosphatase 74 U/L (45-117) 03/08/18 03:46 Total Protein 7.3 g/dL (6.4-8.2) 03/08/18 03:46 Albumin 2.7 g/dL (3.4-5.0) L 03/08/18 03:46 Nasal Screen MRSA (PCR) Not detected (Negative) 03/02/18 16:10 Blood Type A Positive 03/06/18 18:30 Blood Type Recheck Not needed 03/06/18 18:30 Antibody Screen Negative 03/06/18 18:30 MTS Gel Crossmatch See Detail 03/06/18 18:30 - Imaging Imaging: ITS Impressions Mesenteric Arteriogram 03/02/18 00:00 CONCLUSION: 1. Subselective embolization of a small abnormal vessel in the region of the TI. The patient tolerated the procedure well. Chest X-Ray 03/03/18 08:08 CONCLUSION: 1. Pulmonary vascular congestion. 2. Mildly prominent cardiac silhouette. 3. Small left pleural effusion. Abdomen/Pelvis CT 03/04/18 00:00 CONCLUSION: Short segment of ileal small bowel notable for mild concentric wall thickening which may reflect a focally ischemic segment following recent embolization for GI bleeding. Close clinical follow-up recommended. Venous Doppler Study 03/04/18 13:17 CONCLUSION: The study is negative for upper extremity deep venous thrombosis. GI Bleed Scan Nuclear Medicine 03/06/18 00:00 CONCLUSION: 1. Negative GI bleeding scan Abdomen X-Ray 03/07/18 00:00 CONCLUSION: 1. Stable bowel gas pattern most consistent with adynamic ileus. 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 - Arteriovenous malformation of digestive system vessel Status : Acute (2) Lower GI bleed Code(s): K92.2 - Gastrointestinal hemorrhage, unspecified Status: Acute Plan: 72 year old male with LGIB; s/p embolization of AV malformation in the ileum -Pain essentially gone now -Hmg stable -Regular diet -Okay to shower -No surgical plans at this time (3) Abdominal discomfort in right upper quadrant Code(s): R10.11 - Right upper quadrant pain Status: Acute - Attending Attestation NOTE FOR SURGICAL ATTENDING, DR. TAN FERMIN Patient feels much better Has had a few bowel movements Tolerating diet His abdominal pain is almost completely resolved He has slight tenderness in the right lower quadrant that is dramatically improved over the last 3 days I suspect he can probably be discharged in the next day or so I agree with above assessment and plan. The exam, history, and the medical decision-making described in the above note were completed with the assistance of the mid-level provider. I reviewed and agree with the findings presented. I attest that I had a [id number] encounter with the patient on the same day, and personally performed and documented my assessment and findings in the medical record. The following services were provided during this hospital visit: Chart data review, vital sign assessments/reviewing monitor data Review of consultations notes if present. Medication orders/review and/or management Ordering and/or reviewing lab tests Ordering and/or interpreting/reviewing x-rays and/or diagnostic studies Care of the patient and discussion of the patient with the care team Documentation time To help prompt me to consider important information that might be impacting today's encounter and assessment, Information from prior notes written by myself or my colleagues may have been "brought forward/copy and pasted" into today's note.
--- NOTE | 2018-03-08 16:08 | P.PNGI ---
Subjective Interval history: Patient sitting up in chair at bedside Denies any nausea or vomiting Reports 2 stools today with no noted bleeding <Cinthia Manley - Last Filed: 03/08/18 16:02> Physical Exam Vital signs: Vital Signs 03/07/18 20:00 03/08/18 00:00 03/08/18 04:00 Temperature 98.4 F 98.1 F 98.2 F Pulse Rate 96 H 86 87 Respiratory Rate 20 18 18 Blood Pressure 138/68 107/54 L 129/61 Pulse Oximetry 94 L 93 L 93 L 03/08/18 08:00 03/08/18 08:02 03/08/18 12:00 Temperature 98.0 F 98.1 F Pulse Rate 85 87 Respiratory Rate 18 20 Blood Pressure 156/67 H 143/63 H Pulse Oximetry 95 94 L 96 Intake & Output 03/07/18 03/08/18 03/08/18 18:59 06:59 18:59 Intake Total 1400 / 1400 400 / 400 100 / 100 Output Total 500 / 500 Balance 1400 / 1400 -100 / -100 100 / 100 Intake: IV 400 / 400 400 / 400 100 / 100 Cipro 400 MG/200 ML Inj 400 mg 200 / 200 200 / 200 In 200 ml @ 200 mls/hr IV.SIG Q12H [facility] Rx#:[id number] Flagyl 500 MG Inj 100 ML @ 100 200 / 200 200 / 200 100 / 100 mls/hr IV.SIG Q8H C[facility]STY Rx#: [id number] Oral 1000 / 1000 Output: Urine 500 / 500 Other: # Voids 4 Date of Last Bowel Movement 03/07/18 03/07/18 03/08/18 # Bowel Movements 2 - Constitutional no acute distress - Routine HEENT Exam Head: Present: normocephalic - Routine Respiratory Exam Present: CTA bilaterally - Routine Abdominal Exam Present: soft, normoactive bowel sounds, distended. Absent: tenderness, guarding, firm - Routine Skin Exam Present: dry, warm - Routine Neurological Exam Present: alert - Routine Psychiatric Exam Present: normal affect, cooperative <Cinthia Manley - Last Filed: 03/08/18 16:02> Vital signs: Vital Signs 03/08/18 00:00 03/08/18 04:00 03/08/18 08:00 Temperature 98.1 F 98.2 F 98.0 F Pulse Rate 86 87 85 Respiratory Rate 18 18 18 Blood Pressure 107/54 L 129/61 156/67 H Pulse Oximetry 93 L 93 L 95 03/08/18 08:02 03/08/18 12:00 03/08/18 16:00 Temperature 98.1 F 98.4 F Pulse Rate 87 94 H Respiratory Rate 20 18 Blood Pressure 143/63 H 129/62 Pulse Oximetry 94 L 96 95 Intake & Output 03/08/18 03/08/18 03/09/18 06:59 18:59 06:59 Intake Total 400 / 400 1500 / 1500 Output Total 500 / 500 Balance -100 / -100 1500 / 1500 Intake: IV 400 / 400 300 / 300 Cipro 400 MG/200 ML Inj 400 mg 200 / 200 200 / 200 In 200 ml @ 200 mls/hr IV.SIG Q12H C[facility]ST[facility] Rx#:[id number] Flagyl 500 MG Inj 100 ML @ 100 200 / 200 100 / 100 mls/hr IV.SIG Q8H CRISTY Rx#: [id number] Oral 1200 / 1200 Output: Urine 500 / 500 Other: # Voids 5 Date of Last Bowel Movement 03/07/18 03/08/18 # Bowel Movements 1 <Loulou Méndez - Last Filed: 03/08/18 21:50> Results - Labs CBC & Chem 7: 03/08/18 03:46 03/08/18 03:46 Laboratory Results - last 24 hr 03/07/18 03/07/18 03/07/18 16:07 17:23 21:15 WBC RBC Hgb 10.5 L 10.4 L Hct 29.9 L 29.5 L MCV MCH MCHC RDW Plt Count MPV Neut % (Auto) Lymph % (Auto) [place] % (Auto) Eos % (Auto) Baso % (Auto) Neut # (Auto) Lymph # (Auto) [place] # (Auto) Eos # (Auto) Baso # (Auto) WBC Differential Differential Comment Sodium Potassium Chloride Carbon Dioxide Anion Gap BUN Creatinine Estimated GFR POC Glucose 155 H Random Glucose Calcium Total Bilirubin AST ALT Alkaline Phosphatase Total Protein Albumin 03/08/18 03/08/18 03/08/18 01:38 03:46 03:46 WBC 8.5 RBC 3.55 L Hgb 10.7 L 10.6 L Hct 30.7 L 29.8 L MCV 84.0 MCH 29.9 MCHC 35.6 RDW 18.1 H Plt Count 356 MPV 7.6 Neut % (Auto) 70.5 H Lymph % (Auto) 15.5 [place] % (Auto) 10.8 H Eos % (Auto) 2.5 Baso % (Auto) 0.7 Neut # (Auto) 6.0 Lymph # (Auto) 1.3 [place] # (Auto) 0.9 Eos # (Auto) 0.2 Baso # (Auto) 0.1 WBC Differential . Differential Comment Auto diff final Sodium Potassium Chloride Carbon Dioxide Anion Gap BUN Creatinine Estimated GFR POC Glucose 169 H Random Glucose Calcium Total Bilirubin AST ALT Alkaline Phosphatase Total Protein Albumin 03/08/18 03/08/18 03/08/18 03:46 05:24 13:06 WBC RBC Hgb Hct MCV MCH MCHC RDW Plt Count MPV Neut % (Auto) Lymph % (Auto) [place] % (Auto) Eos % (Auto) Baso % (Auto) Neut # (Auto) Lymph # (Auto) [place] # (Auto) Eos # (Auto) Baso # (Auto) WBC Differential Differential Comment Sodium 136 Potassium 3.7 Chloride 98 Carbon Dioxide 27.9 Anion Gap 10 BUN 10 Creatinine 1.14 Estimated GFR 63 L POC Glucose 155 H 215 H Random Glucose 165 H Calcium 8.7 Total Bilirubin 0.4 AST 15 ALT 23 Alkaline Phosphatase 74 Total Protein 7.3 Albumin 2.7 L - Procedures s/p mesenteric angiogram with embolization SMA 03/02/18 <Cinthia Manley - Last Filed: 03/08/18 16:02> - Labs CBC & Chem 7: 03/08/18 03:46 03/08/18 03:46 Laboratory Results - last 24 hr 03/07/18 03/08/18 03/08/18 21:15 01:38 03:46 WBC RBC Hgb 10.4 L 10.7 L Hct 29.5 L 30.7 L MCV MCH MCHC RDW Plt Count MPV Neut % (Auto) Lymph % (Auto) [place] % (Auto) Eos % (Auto) Baso % (Auto) Neut # (Auto) Lymph # (Auto) [place] # (Auto) Eos # (Auto) Baso # (Auto) WBC Differential Differential Comment Sodium Potassium Chloride Carbon Dioxide Anion Gap BUN Creatinine Estimated GFR POC Glucose 169 H Random Glucose Calcium Total Bilirubin AST ALT Alkaline Phosphatase Total Protein Albumin 03/08/18 03/08/18 03/08/18 03:46 03:46 05:24 WBC 8.5 RBC 3.55 L Hgb 10.6 L Hct 29.8 L MCV 84.0 MCH 29.9 MCHC 35.6 RDW 18.1 H Plt Count 356 MPV 7.6 Neut % (Auto) 70.5 H Lymph % (Auto) 15.5 [place] % (Auto) 10.8 H Eos % (Auto) 2.5 Baso % (Auto) 0.7 Neut # (Auto) 6.0 Lymph # (Auto) 1.3 [place] # (Auto) 0.9 Eos # (Auto) 0.2 Baso # (Auto) 0.1 WBC Differential . Differential Comment Auto diff final Sodium 136 Potassium 3.7 Chloride 98 Carbon Dioxide 27.9 Anion Gap 10 BUN 10 Creatinine 1.14 Estimated GFR 63 L POC Glucose 155 H Random Glucose 165 H Calcium 8.7 Total Bilirubin 0.4 AST 15 ALT 23 Alkaline Phosphatase 74 Total Protein 7.3 Albumin 2.7 L 03/08/18 03/08/18 13:06 17:14 WBC RBC Hgb Hct MCV MCH MCHC RDW Plt Count MPV Neut % (Auto) Lymph % (Auto) [place] % (Auto) Eos % (Auto) Baso % (Auto) Neut # (Auto) Lymph # (Auto) [place] # (Auto) Eos # (Auto) Baso # (Auto) WBC Differential Differential Comment Sodium Potassium Chloride Carbon Dioxide Anion Gap BUN Creatinine Estimated GFR POC Glucose 215 H 145 H Random Glucose Calcium Total Bilirubin AST ALT Alkaline Phosphatase Total Protein Albumin <Loulou Méndez - Last Filed: 03/08/18 21:50> Assessment and Plan - Plan Assessment: - GIB S/P colonoscopy 02/22 --> Internal hemorrhoids and distal AVM that was cauterized. Rebled, repeat colonoscopy done 03/01 --> Acute clot S/P epi and clipped, despite this pt continued to bleed, was transferred to [facility] for IR Angiogram with subselective embolization of a small abnormal vessel in the region of the terminal ileum (03/02) patent celiac and MAGGIE. SMA revealed possible bleed at the terminal ileum. Gelfoam and 1 mm coil embolization was performed. At the conclusion of procedure there was no residual flow evident. Abdomen/Pelvis CT 03/04/18 --> Short segment of ileal small bowel notable for mild concentric wall thickening which may reflect a focally ischemic segment following recent embolization for GI bleeding. NM bleeding scan (03/06) Negative exam (03/07) Pts hgb trended down to 7.4 yesterday, received 2 U PRBCs. Pt reports 3 BMs today, states seemed to have bright red and dark blood in them. States very small BMs. GS following. Pt also reports an episode of gagging after lunch. Denies any nausea or vomiting at present. Did have EGD done on 02/22 with findings of gastritis and duodenitis. Biopsies benign. 03/08/2018 GI bleed Patient reports 2 BMs today soft and brown without any obvious bleeding noted. Denies any nausea or vomiting. Hemoglobin 10.6 hematocrit 29.8 platelet count 356 Plan -Diabetic diet -Monitor hemoglobin and hematocrit -Monitor for active bleeding and notify GI -Transfuse if required -Analgesia and antiemetic as per attending -Continue IV antibiotics-Cipro/Flagyl -Continue PPI -Bowel regimen -Supportive care -Further recommendations to follow This patient has been seen and examined by myself and Dr. Méndez and this note is written on her behalf - Attending Attestation <Cinthia Manley - Last Filed: 03/08/18 16:02> - Attending Attestation seen, examined agree with above <Loulou Méndez - Last Filed: 03/08/18 21:50>
[2018-03-08] MEDS: Acetaminophen 325 MG Tablet PO PRN (21:57)
[2018-03-08] MEDS: Temazepam 15 MG Capsule PO PRN (21:57)
[2018-03-09] MEDS: Insulin NovoLOG Aspart Correctional Sugar Inj SQ SCH ×4 (00:57→17:47)
[2018-03-09] MEDS: Ciprofloxacin 400 MG/200 ML 400 MG/200 ML PIGGYBACK IV.SIG SCH (03:01)
[2018-03-09 07:45] LABS: Baso # (Auto) 0.1 th/mm3 (0.0-0.2); Baso % (Auto) 0.7 % (0.0-2.0); Eos # (Auto) 0.1 th/mm3 (0.0-0.4); Eos % (Auto) 1.4 % (0.0-4.0); Hematocrit 32.8 % (39.0-51.0); Hemoglobin 11.4 gm/dL (13.0-17.0); Lymph % (Auto) 10.1 % (9.0-44.0); Mean Corpuscular HGB Conc 34.7 % (32.0-36.0); Mean Corpuscular Hemoglobin 29.7 pg (27.0-34.0); Mean Corpuscular Volume 85.6 fL (80.0-100.0); Mean Platelet Volume 8.1 fL (7.0-11.0); Mono # (Auto) 1.1 th/mm3 (0.0-0.9); Mono % (Auto) 11.4 % (0.0-8.0); Neut # (Auto) 7.7 th/mm3 (1.8-7.7); Neut % (Auto) 76.4 % (16.0-70.0); Platelet Count 386 th/mm3 (150-450); Red Blood Count 3.83 mil/mm3 (4.50-5.90); Red Cell Distribution Width 17.8 % (11.6-17.2)
[2018-03-09 08:01] LABS: Albumin 2.9 g/dL (3.4-5.0); Anion Gap 13 meq/L (5-15); Aspartate Aminotransferase 23 U/L (15-37); Blood Urea Nitrogen 12 mg/dL (7-18); Calcium 8.8 mg/dL (8.5-10.1); Carbon Dioxide 24.5 meq/L (21.0-32.0); Chloride 96 meq/L (98-107); Glomerular Filtration Rate 55 mL/min (>89); Glucose,Random 145 mg/dL (74-106); Potassium 3.6 meq/L (3.5-5.1); Sodium 133 meq/L (136-145)
[2018-03-09 08:07] LABS: Alanine Aminotransferase 26 U/L (12-78); Alkaline Phosphatase 76 U/L (45-117); Total Protein 7.5 g/dL (6.4-8.2)
[2018-03-09] MEDS: amLODIPine 10 MG Tablet PO SCH (10:11)
[2018-03-09] MEDS: Senna/Docusate Sodium 8.6/50 MG Tablet PO SCH ×2 (10:11→22:02)
[2018-03-09] MEDS: Levothyroxine 75 MCG Tablet PO SCH (10:11)
[2018-03-09] MEDS: Pantoprazole Inj 40 MG Vial IV.PUSH SCH (10:11)
[2018-03-09] MEDS: Tiotropium Bromide 18 MCG/ACT Inhaler INH SCH (10:12)
--- NOTE | 2018-03-09 10:45 | P.PNIM ---
Subjective Interval history: Further improvement in hemoglobin stability. MAGGIE globin levels are reported at 11.4 this morning. Patient has no complaints of abdominal pain and clinically he is feeling better through time. Physical Exam Vital signs: Vital Signs 03/08/18 12:00 03/08/18 16:00 03/08/18 20:00 Temperature 98.1 F 98.4 F 99.2 F Pulse Rate 87 94 H 95 H Respiratory Rate 20 18 18 Blood Pressure 143/63 H 129/62 140/71 Pulse Oximetry 96 95 95 03/09/18 00:00 03/09/18 04:00 03/09/18 08:00 Temperature 98.3 F 97.8 F 97.3 F L Pulse Rate 89 96 H 94 H Respiratory Rate 18 18 18 Blood Pressure 138/72 130/63 133/62 Pulse Oximetry 96 94 L 94 L Intake & Output 03/08/18 03/09/18 03/09/18 18:59 06:59 18:59 Intake Total 1500 / 1500 100 / 100 Balance 1500 / 1500 100 / 100 Weight 110 kg Intake: IV 300 / 300 100 / 100 Cipro 400 MG/200 ML Inj 400 mg 200 / 200 In 200 ml @ 200 mls/hr IV.SIG Q12H [facility] Rx#:[id number] Flagyl 500 MG Inj 100 ML @ 100 100 / 100 100 / 100 mls/hr IV.SIG Q8H CRISTY Rx#: [id number] Oral 1200 / 1200 Other: # Voids 5 3 Date of Last Bowel Movement 03/08/18 03/07/18 # Bowel Movements 1 Narrative: GENERAL: NAD, A&Ox3 HEAD: Normocephalic. NECK: Supple, trachea midline. No lymphadenopathy. EYES: No scleral icterus. No injection or drainage. CARDIOVASCULAR: Regular rate and rhythm without murmurs, gallops, or rubs. RESPIRATORY: Breath sounds equal bilaterally. No accessory muscle use. GASTROINTESTINAL: Abdomen soft, non-tender, nondistended. MUSCULOSKELETAL: No cyanosis, or edema. SKIN: Warm and dry. NEURO: No focal neurological deficits. Results - Labs CBC & Chem 7: 03/09/18 05:49 03/09/18 05:49 Laboratory Results - last 24 hr 03/08/18 03/08/18 03/08/18 13:06 17:14 23:31 WBC RBC Hgb Hct MCV MCH MCHC RDW Plt Count MPV Neut % (Auto) Lymph % (Auto) [place] % (Auto) Eos % (Auto) Baso % (Auto) Neut # (Auto) Lymph # (Auto) [place] # (Auto) Eos # (Auto) Baso # (Auto) WBC Differential Differential Comment Sodium Potassium Chloride Carbon Dioxide Anion Gap BUN Creatinine Estimated GFR POC Glucose 215 H 145 H 172 H Random Glucose Calcium Total Bilirubin AST ALT Alkaline Phosphatase Total Protein Albumin 03/09/18 03/09/18 03/09/18 05:08 05:49 05:49 WBC 10.0 RBC 3.83 L Hgb 11.4 L Hct 32.8 L MCV 85.6 MCH 29.7 MCHC 34.7 RDW 17.8 H Plt Count 386 MPV 8.1 Neut % (Auto) 76.4 H Lymph % (Auto) 10.1 [place] % (Auto) 11.4 H Eos % (Auto) 1.4 Baso % (Auto) 0.7 Neut # (Auto) 7.7 Lymph # (Auto) 1.0 [place] # (Auto) 1.1 H Eos # (Auto) 0.1 Baso # (Auto) 0.1 WBC Differential . Differential Comment Auto diff final Sodium 133 L Potassium 3.6 Chloride 96 L Carbon Dioxide 24.5 Anion Gap 13 BUN 12 Creatinine 1.29 Estimated GFR 55 L POC Glucose 165 H Random Glucose 145 H Calcium 8.8 Total Bilirubin 0.4 AST 23 ALT 26 Alkaline Phosphatase 76 Total Protein 7.5 Albumin 2.9 L - Procedures s/p mesenteric angiogram with embolization [facility] 03/02/18 Assessment and Plan - Plan 72-year-old man admitted secondary to GI bleed Hgb level is stable over last 24 hours and show signs of improvement. Continue to follow CBC. Due to severity of prior bleed(s), if CBC stable for 72 hours, will consider DC. Possible discharge tomorrow. Acute GI bleed [place] acute blood loss anemia AVM of terminal ileum Internal hemorrhoid Bleeding still appears to be present intermittently Status post embolization of SMA on 03/02/2018 Continue PPI GI following Continue monitoring CBC Abdominal pain May be secondary to ileus versus irritation from blood Improving Monitor bowel habits Monitor bowel sounds Obstructive sleep apnea History of pulmonary fibrosis Continue oxygen Continue breathing treatments as needed Follow clinically Diabetes mellitus type 2 Follow blood sugars Insulin sliding scale Diabetic diet Hypothyroidism Continue levothyroxine Hypertension Continue baseline treatment Follow blood pressures Adjust treatments as needed Reintroduced baseline treatments today As needed clonidine As needed IV enalapril DVT Prophylaxis SCDs
--- NOTE | 2018-03-09 15:09 | P.PNGI ---
Subjective Interval history: Patient sitting up in chair at bedside Denies abdominal pain Denies nausea vomiting No noted bleeding BM x2 today <Cinthia Manley - Last Filed: 03/09/18 16:31> Physical Exam Vital signs: Vital Signs 03/08/18 16:00 03/08/18 20:00 03/09/18 00:00 Temperature 98.4 F 99.2 F 98.3 F Pulse Rate 94 H 95 H 89 Respiratory Rate 18 18 18 Blood Pressure 129/62 140/71 138/72 Pulse Oximetry 95 95 96 03/09/18 04:00 03/09/18 08:00 03/09/18 12:00 Temperature 97.8 F 97.3 F L 97.6 F Pulse Rate 96 H 94 H 98 H Respiratory Rate 18 18 18 Blood Pressure 130/63 133/62 136/62 Pulse Oximetry 94 L 94 L 93 L 03/09/18 14:44 Temperature Pulse Rate Respiratory Rate Blood Pressure Pulse Oximetry 95 Intake & Output 03/08/18 03/09/18 03/09/18 18:59 06:59 18:59 Intake Total 1500 / 1500 100 / 100 Balance 1500 / 1500 100 / 100 Weight 110 kg Intake: IV 300 / 300 100 / 100 Cipro 400 MG/200 ML Inj 400 mg 200 / 200 In 200 ml @ 200 mls/hr IV.SIG Q12H CRISTY Rx#:[id number] Flagyl 500 MG Inj 100 ML @ 100 100 / 100 100 / 100 mls/hr IV.SIG Q8H CRISTY Rx#: [id number] Oral 1200 / 1200 Other: # Voids 5 3 Date of Last Bowel Movement 03/08/18 03/07/18 # Bowel Movements 1 - Constitutional no acute distress - Routine HEENT Exam Head: Present: normocephalic - Routine Respiratory Exam Absent: accessory muscle use - Routine Abdominal Exam Present: soft, normoactive bowel sounds - Routine Extremities Exam Absent: edema - Routine Skin Exam Present: dry, warm - Routine Neurological Exam Present: alert, oriented X3 - Routine Psychiatric Exam Present: normal affect, cooperative <Cinthia Manley - Last Filed: 03/09/18 16:31> Vital signs: Vital Signs 03/08/18 20:00 03/09/18 00:00 03/09/18 04:00 Temperature 99.2 F 98.3 F 97.8 F Pulse Rate 95 H 89 96 H Respiratory Rate 18 18 18 Blood Pressure 140/71 138/72 130/63 Pulse Oximetry 95 96 94 L 03/09/18 08:00 03/09/18 12:00 03/09/18 14:44 Temperature 97.3 F L 97.6 F Pulse Rate 94 H 98 H Respiratory Rate 18 18 Blood Pressure 133/62 136/62 Pulse Oximetry 94 L 93 L 95 Intake & Output 03/08/18 03/09/18 03/09/18 18:59 06:59 18:59 Intake Total 1500 / 1500 100 / 100 100 / 100 Balance 1500 / 1500 100 / 100 100 / 100 Weight 110 kg Intake: IV 300 / 300 100 / 100 100 / 100 Cipro 400 MG/200 ML Inj 400 mg 200 / 200 In 200 ml @ 200 mls/hr IV.SIG Q12H CRISTY Rx#:[id number] Flagyl 500 MG Inj 100 ML @ 100 100 / 100 100 / 100 100 / 100 mls/hr IV.SIG Q8H CRISTY Rx#: [id number] Oral 1200 / 1200 Other: # Voids 5 3 Date of Last Bowel Movement 03/08/18 03/07/18 # Bowel Movements 1 <Loulou Méndez - Last Filed: 03/09/18 16:57> Results - Labs CBC & Chem 7: 03/09/18 05:49 03/09/18 05:49 Laboratory Results - last 24 hr 03/08/18 03/08/18 03/09/18 17:14 23:31 05:08 WBC RBC Hgb Hct MCV MCH MCHC RDW Plt Count MPV Neut % (Auto) Lymph % (Auto) [place] % (Auto) Eos % (Auto) Baso % (Auto) Neut # (Auto) Lymph # (Auto) [place] # (Auto) Eos # (Auto) Baso # (Auto) WBC Differential Differential Comment Sodium Potassium Chloride Carbon Dioxide Anion Gap BUN Creatinine Estimated GFR POC Glucose 145 H 172 H 165 H Random Glucose Calcium Total Bilirubin AST ALT Alkaline Phosphatase Total Protein Albumin 03/09/18 03/09/18 05:49 05:49 WBC 10.0 RBC 3.83 L Hgb 11.4 L Hct 32.8 L MCV 85.6 MCH 29.7 MCHC 34.7 RDW 17.8 H Plt Count 386 MPV 8.1 Neut % (Auto) 76.4 H Lymph % (Auto) 10.1 [place] % (Auto) 11.4 H Eos % (Auto) 1.4 Baso % (Auto) 0.7 Neut # (Auto) 7.7 Lymph # (Auto) 1.0 [place] # (Auto) 1.1 H Eos # (Auto) 0.1 Baso # (Auto) 0.1 WBC Differential . Differential Comment Auto diff final Sodium 133 L Potassium 3.6 Chloride 96 L Carbon Dioxide 24.5 Anion Gap 13 BUN 12 Creatinine 1.29 Estimated GFR 55 L POC Glucose Random Glucose 145 H Calcium 8.8 Total Bilirubin 0.4 AST 23 ALT 26 Alkaline Phosphatase 76 Total Protein 7.5 Albumin 2.9 L - Procedures s/p mesenteric angiogram with embolization SMA 03/02/18 <Cinthia Manley - Last Filed: 03/09/18 16:31> - Labs CBC & Chem 7: 03/09/18 05:49 03/09/18 05:49 Laboratory Results - last 24 hr 03/08/18 03/08/18 03/09/18 17:14 23:31 05:08 WBC RBC Hgb Hct MCV MCH MCHC RDW Plt Count MPV Neut % (Auto) Lymph % (Auto) [place] % (Auto) Eos % (Auto) Baso % (Auto) Neut # (Auto) Lymph # (Auto) [place] # (Auto) Eos # (Auto) Baso # (Auto) WBC Differential Differential Comment Sodium Potassium Chloride Carbon Dioxide Anion Gap BUN Creatinine Estimated GFR POC Glucose 145 H 172 H 165 H Random Glucose Calcium Total Bilirubin AST ALT Alkaline Phosphatase Total Protein Albumin 03/09/18 03/09/18 03/09/18 05:49 05:49 15:01 WBC 10.0 RBC 3.83 L Hgb 11.4 L Hct 32.8 L MCV 85.6 MCH 29.7 MCHC 34.7 RDW 17.8 H Plt Count 386 MPV 8.1 Neut % (Auto) 76.4 H Lymph % (Auto) 10.1 [place] % (Auto) 11.4 H Eos % (Auto) 1.4 Baso % (Auto) 0.7 Neut # (Auto) 7.7 Lymph # (Auto) 1.0 [place] # (Auto) 1.1 H Eos # (Auto) 0.1 Baso # (Auto) 0.1 WBC Differential . Differential Comment Auto diff final Sodium 133 L Potassium 3.6 Chloride 96 L Carbon Dioxide 24.5 Anion Gap 13 BUN 12 Creatinine 1.29 Estimated GFR 55 L POC Glucose 159 H Random Glucose 145 H Calcium 8.8 Total Bilirubin 0.4 AST 23 ALT 26 Alkaline Phosphatase 76 Total Protein 7.5 Albumin 2.9 L <Santosh Méndezrice - Last Filed: 03/09/18 16:57> Assessment and Plan - Plan Assessment: - GIB S/P colonoscopy 02/22 --> Internal hemorrhoids and distal AVM that was cauterized. Rebled, repeat colonoscopy done 03/01 --> Acute clot S/P epi and clipped, despite this pt continued to bleed, was transferred to [facility] for IR Angiogram with subselective embolization of a small abnormal vessel in the region of the terminal ileum (03/02) patent celiac and MAGGIE. SMA revealed possible bleed at the terminal ileum. Gelfoam and 1 mm coil embolization was performed. At the conclusion of procedure there was no residual flow evident. Abdomen/Pelvis CT 03/04/18 --> Short segment of ileal small bowel notable for mild concentric wall thickening which may reflect a focally ischemic segment following recent embolization for GI bleeding. NM bleeding scan (03/06) Negative exam (03/07) Pts hgb trended down to 7.4 yesterday, received 2 U PRBCs. Pt reports 3 BMs today, states seemed to have bright red and dark blood in them. States very small BMs. GS following. Pt also reports an episode of gagging after lunch. Denies any nausea or vomiting at present. Did have EGD done on 02/22 with findings of gastritis and duodenitis. Biopsies benign. 03/08/2018 GI bleed Patient reports 2 BMs today soft and brown without any obvious bleeding noted. Denies any nausea or vomiting. Hemoglobin 10.6 hematocrit 29.8 platelet count 356 03/09/2018 GI bleed Patient reports 2 BMs today without any noted bleeding. Denies any nausea vomiting or abdominal pain Hemoglobin 11.4 hematocrit 32.8 stable. Plan -Diabetic diet -Monitor labs -Monitor for active bleeding -Transfuse if needed -Analgesia and antiemetic as per attending -Nidia/Adryan -Continue PPI -Bowel regimen -Supportive care This patient has been seen and examined by myself and Dr. Méndez and this note is written on her behalf - Attending Attestation Dr. Méndez <Cinthia Manley - Last Filed: 03/09/18 16:31> - Attending Attestation seen, examined agree with above if tolerated food , no abdominal pain or gi bleeding by am, ok to dc home in am fu gi in 2 weeks <Loulou Méndez - Last Filed: 03/09/18 16:57>
--- NOTE | 2018-03-09 15:11 | P.PNGS ---
Subjective Interval history: DAILY PROGRESS NOTE FOR SURGICAL ATTENDING, DR. TAN FERMIN Resting in bed +BM in this morning Tolerating regular diet Physical Exam Vital signs: Vital Signs 03/08/18 16:00 03/08/18 20:00 03/09/18 00:00 Temperature 98.4 F 99.2 F 98.3 F Pulse Rate 94 H 95 H 89 Respiratory Rate 18 18 18 Blood Pressure 129/62 140/71 138/72 Pulse Oximetry 95 95 96 03/09/18 04:00 03/09/18 08:00 03/09/18 12:00 Temperature 97.8 F 97.3 F L 97.6 F Pulse Rate 96 H 94 H 98 H Respiratory Rate 18 18 18 Blood Pressure 130/63 133/62 136/62 Pulse Oximetry 94 L 94 L 93 L 03/09/18 14:44 Temperature Pulse Rate Respiratory Rate Blood Pressure Pulse Oximetry 95 Intake & Output 03/08/18 03/09/18 03/09/18 18:59 06:59 18:59 Intake Total 1500 / 1500 100 / 100 Balance 1500 / 1500 100 / 100 Weight 110 kg Intake: IV 300 / 300 100 / 100 Cipro 400 MG/200 ML Inj 400 mg 200 / 200 In 200 ml @ 200 mls/hr IV.SIG Q12H [facility] Rx#:[id number] Flagyl 500 MG Inj 100 ML @ 100 100 / 100 100 / 100 mls/hr IV.SIG Q8H [facility]ST[facility] Rx#: [id number] Oral 1200 / 1200 Other: # Voids 5 3 Date of Last Bowel Movement 03/08/18 03/07/18 # Bowel Movements 1 Narrative: Alert and awake Abd: non tender; distended Results - Labs 03/09/18 05:49 03/09/18 05:49 - Imaging Imaging: ITS Impressions Mesenteric Arteriogram 03/02/18 00:00 CONCLUSION: 1. Subselective embolization of a small abnormal vessel in the region of the TI. The patient tolerated the procedure well. Chest X-Ray 03/03/18 08:08 CONCLUSION: 1. Pulmonary vascular congestion. 2. Mildly prominent cardiac silhouette. 3. Small left pleural effusion. Abdomen/Pelvis CT 03/04/18 00:00 CONCLUSION: Short segment of ileal small bowel notable for mild concentric wall thickening which may reflect a focally ischemic segment following recent embolization for GI bleeding. Close clinical follow-up recommended. Venous Doppler Study 03/04/18 13:17 CONCLUSION: The study is negative for upper extremity deep venous thrombosis. GI Bleed Scan Nuclear Medicine 03/06/18 00:00 CONCLUSION: 1. Negative GI bleeding scan Abdomen X-Ray 03/07/18 00:00 CONCLUSION: 1. Stable bowel gas pattern most consistent with adynamic ileus. 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 - Arteriovenous malformation of digestive system vessel Status : Acute (2) Lower GI bleed Code(s): K92.2 - Gastrointestinal hemorrhage, unspecified Status: Acute Plan: 72 year old male with LGIB; s/p embolization of AV malformation in the ileum -Exam benign -Hmg stable -Regular diet -Okay to shower -GS will sign off; please call with questions (3) Abdominal discomfort in right upper quadrant Code(s): R10.11 - Right upper quadrant pain Status: Acute - Attending Attestation NOTE FOR SURGICAL ATTENDING, DR. TAN FERMIN I agree with above assessment and plan. The exam, history, and the medical decision-making described in the above note were completed with the assistance of the mid-level provider. I reviewed and agree with the findings presented. The following services were provided during this hospital visit: Chart data review, vital sign assessments/reviewing monitor data Review of consultations notes if present. Medication orders/review and/or management Ordering and/or reviewing lab tests Ordering and/or interpreting/reviewing x-rays and/or diagnostic studies Care of the patient and discussion of the patient with the care team Documentation time To help prompt me to consider important information that might be impacting today's encounter and assessment, Information from prior notes written by myself or my colleagues may have been "brought forward/copy and pasted" into today's note.
[2018-03-09] MEDS: Acetaminophen 325 MG Tablet PO PRN (22:02)
[2018-03-09] MEDS: Temazepam 15 MG Capsule PO PRN (22:03)
[2018-03-10] MEDS: Insulin NovoLOG Aspart Correctional Sugar Inj SQ SCH ×2 (01:30→06:05)
[2018-03-10 08:13] VITALS: BP 126/60; PULSE 93; RESP 16; TEMP 97.6; O2SAT 94
[2018-03-10] MEDS: amLODIPine 10 MG Tablet PO SCH (08:15)
[2018-03-10] MEDS: Pantoprazole Inj 40 MG Vial IV.PUSH SCH (08:16)
[2018-03-10] MEDS: Senna/Docusate Sodium 8.6/50 MG Tablet PO SCH (08:16)
[2018-03-10] MEDS: Levothyroxine 75 MCG Tablet PO SCH (08:16)
[2018-03-10] MEDS: Tiotropium Bromide 18 MCG/ACT Inhaler INH SCH (08:18)
[2018-03-10 08:29] LABS: Baso # (Auto) 0.1 th/mm3 (0.0-0.2); Baso % (Auto) 0.4 % (0.0-2.0); Eos # (Auto) 0.2 th/mm3 (0.0-0.4); Eos % (Auto) 1.3 % (0.0-4.0); Hematocrit 34.9 % (39.0-51.0); Hemoglobin 12.2 gm/dL (13.0-17.0); Lymph # (Auto) 1.6 th/mm3 (1.0-4.8); Lymph % (Auto) 11.2 % (9.0-44.0); Mean Corpuscular HGB Conc 34.8 % (32.0-36.0); Mean Corpuscular Hemoglobin 29.8 pg (27.0-34.0); Mean Corpuscular Volume 85.5 fL (80.0-100.0); Mean Platelet Volume 7.9 fL (7.0-11.0); Mono # (Auto) 1.7 th/mm3 (0.0-0.9); Mono % (Auto) 12.3 % (0.0-8.0); Neut # (Auto) 10.3 th/mm3 (1.8-7.7); Neut % (Auto) 74.8 % (16.0-70.0); Platelet Count 473 th/mm3 (150-450); Red Blood Count 4.08 mil/mm3 (4.50-5.90); Red Cell Distribution Width 18.3 % (11.6-17.2); White Blood Count 13.8 th/mm3 (4.0-11.0)
--- NOTE | 2018-03-10 10:40 | P.DS ---
Date of admission: 03/02/18 16:12 Primary care physician: UNKNOWN Brief History from admission: This is a 72-year-old male. Admission 03/02/2018 past medical includes diabetes mellitus, hypertension, obstructive sleep apnea, hypothyroidism and pulmonary fibrosis. Pertinent history, GI bleed. Patient a colonoscopy 02/22 which revealed internal hemorrhoids and distal AVM that was cauterized. Patient had recurrent rectal bleeding in a colonoscopy 03/01 revealed acute clot. Patient was epi and clipped. Hemoglobin this a.m. at 11 L was 11.1. Patient was transferred to [facility] for embolization by interventional radiology. In IR, patient had patent celiac and MAGGIE. SMA revealed possible bleed at the terminal ileum. Gelfoam and 1 mm close provided. Hemoglobin is currently 8.4 patient is hemodynamically stable. DS: Summary Hospital Course: Mr. Tillman is a 72-year-old male. He was sent for GI bleed to this hospital from [facility]. Potential for surgical intervention was present this patient had an unimproving GI bleed with unknown source that was not responsive to cauterization. Etiology for his bleed may have been related to cauterization of a mild bleed AVM. He had a colonoscopy secondary to chronic microscopic blood in stool. Lack of any intervention has resulted in stabilization and cessation of bleeding. Patient's medically stable and cleared for discharge home today. He is cautioned about obtaining further cauterizations of AVMs in his colon. He may consider pill capsule study as an outpatient. Chronic microscopic blood in stool should be expected if he has a heavy burden of AVMs. Patient was transfused 2 units and has remained stable 72 hours after this transfusion. Discharge to home today. - Time Spent with Patient Total time spent providing and/or coordinating discharge services: Less than 30 minutes - Quality: VTE Deep Vein Thrombosis/Pulmonary Embolism Present on Admission: No Exam Vital signs: Vital Signs 03/09/18 12:00 03/09/18 14:44 03/09/18 16:00 Temperature 97.6 F 97.8 F Pulse Rate 98 H 96 H Respiratory Rate 18 18 Blood Pressure 136/62 122/61 Pulse Oximetry 93 L 95 95 03/09/18 20:00 03/10/18 00:00 03/10/18 04:00 Temperature 98.6 F 98.2 F 97.8 F Pulse Rate 100 H 96 H 91 H Respiratory Rate 18 18 18 Blood Pressure 135/61 122/64 115/55 L Pulse Oximetry 95 95 95 03/10/18 07:00 03/10/18 08:00 Temperature 97.6 F Pulse Rate 93 H Respiratory Rate 12 16 Blood Pressure 126/60 Pulse Oximetry 94 L Intake & Output 03/09/18 03/10/18 03/10/18 18:59 06:59 18:59 Intake Total 808 / 808 Balance 808 / 808 Weight 110 kg Intake: IV 100 / 100 Flagyl 500 MG Inj 100 ML @ 100 100 / 100 mls/hr IV.SIG Q8H CRISTY Rx#: [id number] Oral 708 / 708 Other: # Voids 4 2 Date of Last Bowel Movement 03/08/18 03/07/18 03/10/18 Results Procedures completed during hospitalization: s/p mesenteric angiogram with embolization SMA 03/02/18 Labs on day of discharge: Labs from last 24 hours 03/10/18 03/10/18 03/10/18 07:45 06:00 01:26 WBC 13.8 H RBC 4.08 L Hgb 12.2 L Hct 34.9 L MCV 85.5 MCH 29.8 MCHC 34.8 RDW 18.3 H Plt Count 473 H MPV 7.9 Neut % (Auto) 74.8 H Lymph % (Auto) 11.2 [place] % (Auto) 12.3 H Eos % (Auto) 1.3 Baso % (Auto) 0.4 Neut # (Auto) 10.3 H Lymph # (Auto) 1.6 [place] # (Auto) 1.7 H Eos # (Auto) 0.2 Baso # (Auto) 0.1 WBC Differential . Differential Comment Auto diff final POC Glucose 173 H 168 H 03/09/18 03/09/18 17:32 15:01 WBC RBC Hgb Hct MCV MCH MCHC RDW Plt Count MPV Neut % (Auto) Lymph % (Auto) [place] % (Auto) Eos % (Auto) Baso % (Auto) Neut # (Auto) Lymph # (Auto) [place] # (Auto) Eos # (Auto) Baso # (Auto) WBC Differential Differential Comment POC Glucose 145 H 159 H - Impressions ITS Impressions Mesenteric Arteriogram 03/02/18 00:00 CONCLUSION: 1. Subselective embolization of a small abnormal vessel in the region of the TI. The patient tolerated the procedure well. Chest X-Ray 03/03/18 08:08 CONCLUSION: 1. Pulmonary vascular congestion. 2. Mildly prominent cardiac silhouette. 3. Small left pleural effusion. Abdomen/Pelvis CT 03/04/18 00:00 CONCLUSION: Short segment of ileal small bowel notable for mild concentric wall thickening which may reflect a focally ischemic segment following recent embolization for GI bleeding. Close clinical follow-up recommended. Venous Doppler Study 03/04/18 13:17 CONCLUSION: The study is negative for upper extremity deep venous thrombosis. GI Bleed Scan Nuclear Medicine 03/06/18 00:00 CONCLUSION: 1. Negative GI bleeding scan Abdomen X-Ray 03/07/18 00:00 CONCLUSION: 1. Stable bowel gas pattern most consistent with adynamic ileus. Discharge Plan - Discharge Disposition Patient Disposition: 01 Discharge Home - Discharge Condition Condition: Fair - Discharge Order Discharge Orders: Discharge Order (Routine); Ordered 03/10/18 Ordered By: Eladio Arellano - Discharge Details Anticipated Discharge Date: 03/10/18 - Physicians Team Primary Care Provider: UNKNOWN, Attending Provider: Eladio Arellano Other Providers: Jonnathan John MD ; Loulou Méndez MD - Rxs /Orders / Referrals /Forms Prescriptions: Continue amlodipine 10 mg Tablet 10 mg PO DAILY enalapril maleate 20 mg Tablet 20 mg PO BID glimepiride 2 mcg BID levothyroxine [Synthroid] 75 mcg Tablet 75 mcg PO DAILY metformin 1,000 mg Tablet BID pantoprazole 40 DAILY sitagliptin [Januvia] 100 mg Tablet 100 mg PO DAILY tiotropium bromide [Spiriva with HandiHaler] 18 mcg Capsule, W/Inhalation Device 1 cap INHALATION DAILY triamterene-hydrochlorothiazid 75-50 mg Tablet 0.5 tab PO DAILY Referrals: UNKNOWN, [Primary Care Provider] - See Instructions - Discharge Instructions Patient Printed Instructions: Gastrointestinal Bleeding (GEN) Additional Instructions: Your Health Problems: Goals to Promote Your Health: * To prevent worsening of your condition * To maintain your health at the optimal level Directions to Meet Your Goals: * Take your medications as prescribed * Follow your dietary instruction * Follow activity as directed * Keep your appointments as scheduled * Take your immunizations and boosters as scheduled * If your symptoms worsen call your PCP * If no PCP go to Urgent Care or Emergency Room Smoking is dangerous to your health. Avoid second hand smoke. You may reach the 24-hour crisis hotline for domestic abuse at .
== END 2018-03-10 09:59 | disposition home or self-care (01) ==
LOC: HIMC 16:12 → N05 03-05 18:28
PROVIDERS: ADMIT Hospitalist; ATTEND Hospitalist